=== PATIENT | male | born 1985 | race Caucasian/White ===

== ENCOUNTER → 2016-04-20 | Outpatient (CLI) | payer BC ==
--- NOTE | 2016-04-20 08:18 | CT ---
EXAMINATION TYPE: CT wrist RT wo con DATE OF EXAM: 04/20/2016 7:41 AM COMPARISON: NONE HISTORY: Right wrist pain CT DLP: [address] of the right wrist with reconstruction imaging. TECHNIQUE: Unenhanced CT of the right breast was performed with bone and soft tissue window settings submitted in the axial coronal and sagittal planes. At a separate workstation [id number] TR imaging was obt ained. FINDINGS: There is a partially impacted and partially comminuted fracture of the distal right radius. There is evidence of intra-articular extension. Displacement is estimated at 4 mm. No additional fra ctures are identified. Radiocarpal joint space is well maintained. Soft tissue edema is noted about t he fracture site. IMPRESSION: 1. Distal radial fracture
== END | disposition home or self-care (01) ==
LOC: RADCTMAIN 06:52
PROVIDERS: ATTEND Orthopaedic Surgery
DX: S52.501A Unspecified fracture of the lower end of right radius, initial encounter for closed fracture (principal)

== ENCOUNTER 2016-07-14 14:18 | Inpatient (IN) | payer BC ==
[2016-07-14] MEDS ORDERED: TEMAZEPAM 15 MG CAP PO PRN (14:29)
[2016-07-14] MEDS ORDERED: BENZOCAINE/MENTHOL LOZENG 1 EACH LOZENGE MUCOUS MEM PRN (14:29)
[2016-07-14] MEDS ORDERED: NALOXONE 0.4 MG/ML 1 ML VIAL IV PRN (14:29)
[2016-07-14] MEDS ORDERED: MAG HYDROX/AL HYDROX/SIMETH 30 ML CUP PO PRN (14:29)
[2016-07-14] MEDS ORDERED: NA PHOS,M-B/NA PHOS,DI-BA 133 ML ENEMA RECTAL PRN (14:29)
[2016-07-14] MEDS ORDERED: ACETAMINOPHEN TAB 325 MG TAB PO PRN (14:29)
[2016-07-14] MEDS ORDERED: MAGNESIUM HYDROXIDE 2,400 MG/10 ML CUP PO PRN (14:29)
[2016-07-14] MEDS ORDERED: ONDANSETRON 4 MG/2 ML VIAL IVP PRN (14:29)
[2016-07-14] MEDS ORDERED: IV VANCOMYCIN PER PHARMACY 1 EACH MISC MISCELLANE PRN (14:41)
[2016-07-14] MEDS: HYDROmorphone 1 MG/ML 1 ML SYRINGE IV PRN ×3 (16:19→23:07)
[2016-07-14 16:46] LABS: Basophils # (A) 0.1 k/uL (0-0.2); Basophils % (A) 1 %; CH 28.5; CHCM 31.5; Eosinophils # (A) 0.3 k/uL (0-0.7); Eosinophils % (A) 3 %; HCT 39.9 % (39.0-53.0); HDW 2.94; HGB 12.5 gm/dL (13.0-17.5); Hypochromasia Slight; Luc % (Auto) 4; Lymphocytes # (A) 2.7 k/uL (1.0-4.8); Lymphocytes % (A) 29 %; MCH 28.6 pg (25.0-35.0); MCHC 31.5 g/dL (31.0-37.0); MCV 90.8 fL (80.0-100.0); Mean Platelet Volume 6.4; Monocytes # (A) 0.8 k/uL (0-1.0); Monocytes % (A) 9 %; Neutrophils # (A) 4.8 k/uL (1.3-7.7); Neutrophils % (A) 53 %; RBC 4.39 m/uL (4.30-5.90); RDW 13.1 % (11.5-15.5); WBC (Perox) 9.19
[2016-07-14 16:58] LABS: ALT 67 U/L (21-72); AST 44 U/L (17-59); Alkaline Phosphatase 53 U/L (38-126); Anion Gap 10 mmol/L; Blood Urea Nitrogen 11 mg/dL (9-20); Calcium 9.2 mg/dL (8.4-10.2); Carbon Dioxide 24 mmol/L (22-30); Chloride 107 mmol/L (98-107); Glucose 80 mg/dL (74-99); Non-African American GFR(MDRD) >60 (>60 ml/min/1.73 sqM); Sodium 141 mmol/L (137-145); Total Bilirubin 0.3 mg/dL (0.2-1.3); Total Protein 6.9 g/dL (6.3-8.2)
[2016-07-14] MEDS: LACTATED RINGERS 1,000 ML IV SCH (16:59)
[2016-07-14 17:28] LABS: RBC, Body Fluid 1449000 /uL
[2016-07-14 17:39] LABS: Potassium 4.3 mmol/L (3.5-5.1)
[2016-07-14] MEDS ORDERED: VANCOMYCIN 1,500 MG in SODIUM CHLORIDE 0.9% 250 ML IVPB ONE (18:00)
[2016-07-14] MEDS: HYDROcodone/APAP 5-325MG 1 EACH TAB PO PRN (20:45)
--- NOTE | 2016-07-14 22:34 | P.HPOR ---
History of Present Illness H&P Date: 07/14/16 Chief Complaint: Right wrist infection this is a 30-year-old male with history of right wrist fracture in April 2016. The patient had a closed reduction with percutaneous pinning of the right distal radius on 04/26/16. The patient is on immunosuppressive is for his Crohn's disease. He is currently on Remicade. He has history of MRSA infection. He developed some redness and swelling to the wrist over the past week or so. Symptoms have become progressively worse and presented to our office for evaluation. A bedside I&D was performed in the office as well as an aspiration of the wrist joint. There was no purulent material expressed from either the wound or the joint. Fluid was obtained and sent for culture, sensitivity and cell count. He is admitted to [facility] for IV antibioticsand evaluation with infectious disease. Past Medical History Additional Past Medical History / Comment(s): chrons-diagnosed at age 9, colostomy 2001, psoriasis, atopic dermatitis, cellulitis History of Any Multi-Drug Resistant Organisms: None Reported Past Surgical History: Bowel Resection Additional Past Surgical History / Comment(s): pt states that he has no large intestine Past Anesthesia/Blood Transfusion Reactions: No Reported Reaction Past Psychological History: No Psychological Hx Reported Additional Psychological History / Comment(s): Single. 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 Is not an alcohol user. He over is a tobacco smoker of less than one pack per day. Denies recreational drug use. Does have a girlfriend. No animals in the home. No experience. No extensive travels. Smoking Status: Current every day smoker Past Alcohol Use History: Occasional Past Drug Use History: None Reported - Past Family History Mother Family Medical History: No Reported History Father Family Medical History: Cancer Additional Family Medical History / Comment(s): skin cancer. worked as ship purser and was shot in head but survived Medications and Allergies Home Medications Medication Instructions Recorded Confirmed Type Omeprazole [PriLOSEC] 20 mg PO DAILY 06/09/14 07/14/16 History inFLIXimab [Remicade] 1 injection SQ Q40D 06/09/14 07/14/16 History traMADol HCl [Ultram] 100 mg PO Q8HR PRN 07/21/15 07/14/16 History HYDROcodone/APAP 5-325MG [[place] 1 - 2 tab PO Q6H PRN 07/14/16 07/14/16 History 5-325] Allergies Allergy/AdvReac Type Severity Reaction Status Date / Time No Known Allergies Allergy Verified 07/21/15 09:47 Physical Examination this is a pleasant 30-year-old male in no acute distress. He is alert and oriented 3. Exam of the right upper extremity reveals erythema and swelling to the wrist into the hand. There is a wound about the ulnar aspect of the wristfrom the pin site. There is a clear fluid that is expressed from the wound. There is significant pain with motion of the wrist. He has fairly good finger motion without difficulty or pain. Neurovascular status to the upper extremitiy is intact. Results Right wrist fracture is well-healed.no new findings. - Labs Result Diagrams: 07/14/16 16:22 07/14/16 16:22 Assessment and Plan (1) Cellulitis of wrist Status: Acute (2) Postoperative infection Status: Acute Plan: The clinical findings are discussed the patient. Is recommended that he be admitted for IV antibiotics with his history of immune suppression and history with MRSA in the past.we'll order a K pad for moist heat. His dressing should be changed daily and the wound is repacked. I will consult infectious disease and primary care.
[2016-07-14] MEDS: VANCOMYCIN 1,500 MG in SODIUM CHLORIDE 0.9% 250 ML IVPB SCH (23:10)
[2016-07-15] MEDS: HYDROcodone/APAP 5-325MG 1 EACH TAB PO PRN ×2 (02:09→06:09)
[2016-07-15] MEDS: HYDROmorphone 1 MG/ML 1 ML SYRINGE IV PRN ×3 (02:10→08:44)
[2016-07-15] MEDS: VANCOMYCIN 1,500 MG in SODIUM CHLORIDE 0.9% 250 ML IVPB SCH ×3 (07:43→21:50)
[2016-07-15] MEDS ORDERED: IBUPROFEN 200 MG TAB PO PRN (11:20)
--- NOTE | 2016-07-15 11:26 | P.PN ---
Progress Note - Text Patient is a very pleasant 30-year-old male who is seen and examined at the bedside for further evaluation for right wrist infection. He was seen and examined in the office yesterday with subsequent admission. Fluids were obtained during his visit to the office and sent for evaluation. Packing and dressing was also placed at the posterior right wrist. Since his admittance, he has been started on vancomycin. He states the pain on the posterior aspect of the right wrist has been improving. He states he has been experiencing some increased pain on the palmar side of the wrist. He continues to receive Dilaudid 1 mg IV every 3 hours and [place] 5 mg/25 mg for pain relief. He states his pain has not been adequately controlled. He is currently waiting for evaluation by Dr. Lund in infectious disease as well as medicine. He is known to have Crohn's disease. He states he also has frequent headaches and takes Motrin 200 mg as needed for relief of his headaches. He states this dosage does not cause an exacerbation of his Crohn's disease. He continues to take Remicade for his Crohn's disease. Physical Exam: Patient is awake, alert, and oriented 3 Vital signs stable Good chest excursion with deep inspiration and expiration Abdomen soft nontender Erythema and swelling to the right wrist and hand Evidence of a wound on the ulnar aspect of the wrist from the pin site Wound is currently packed with iodoform gauze with mild drainage Dressing about the right wrist is removed during physical examination; dressing reapplied with Adaptic, nonstick Telfa, and stretch wrap Pain with palpation of the palmar side of the wrist Significant pain throughout range of motion of the right wrist Good range of motion of all fingers and thumb of the right hand without significant difficulty Neurovascularly intact right upper extremity Pertinent studies: Gram stain and wound culture of the right wrist preliminary: Few gram-positive cocci in clusters, moderate polymorphonuclear leukocytes Anaerobic wound culture preliminary: Culture and progress Assessment: Right wrist infection following closed reduction with percutaneous pinning of the right distal radius on 04/26/2016 Crohn's disease with subsequent previous bowel resection Headaches Current every day smoker Plan: 1. We will plan to obtain an MRI of the right wrist with and without contrast for further evaluation following his right wrist infection and significant right wrist pain. 2. Continue with daily dressing changes with Adaptic, nonstick Telfa, and stretch wrap; physician to RN communication has been placed 3. Continue pain control; will plan to discontinue [place] 5 mg/325 mg 2 tabs every 6 hours as needed for pain and we'll increase this to [place] 7.5 mg/325 mg 2 tabs every 6 hours as needed for pain; continue with Dilaudid 1 mg IV every 3 hours as needed for pain 4. We will add Motrin 200 mg one tab daily as needed for headaches 5. Patient currently waiting for consultation by Dr. Lund in infectious disease 6. Patient will be seen and examined by medicine for further evaluation 7. We'll continue to follow patient closely
[2016-07-15] MEDS: HYDROcodone/APAP 7.5-325MG 1 EACH TAB PO PRN ×3 (11:54→20:32)
[2016-07-15] MEDS: HYDROmorphone 1 MG/ML 1 ML SYRINGE IVP PRN ×4 (12:52→23:33)
[2016-07-15] MEDS ORDERED: IV VANCOMYCIN PER PHARMACY 1 EACH MISC MISCELLANE PRN (12:58)
[2016-07-15] MEDS: LACTATED RINGERS 1,000 ML IV SCH (14:40)
[2016-07-15] MEDS ORDERED: VANCOMYCIN TROUGH DUE 1 EACH MISC MISCELLANE ONE ×2 (15:30→21:00)
--- NOTE | 2016-07-15 15:30 | P.CONS ---
History of Present Illness - Reason for Consult Consult date: 07/15/16 Medical management Requesting physician: Abilio Julien - Chief Complaint Right wrist pain - History of Present Illness 30-year-old gentleman with history of right-wrist fracture in April status post close reduction with percutaneous pinning who presented to his orthopedic surgeon's office yesterday with worsening right wrist swelling and pain. Patient was noted to have significant cellulitis with possible abscess formation. He underwent I&D. He was directly admitted to the hospital for IV antibiotic treatment given his underlying Crohn's disease in him being immunocompromised on Remicade. I was asked to see him for medical management. Patient is doing well today. Review of Systems Review of system: 14 points review of systems were obtained and were negative except to what were mentioned in the HPI. Past Medical History Additional Past Medical History / Comment(s): chrons-diagnosed at age 9, colostomy 2001, psoriasis, atopic dermatitis, cellulitis History of Any Multi-Drug Resistant Organisms: None Reported Year Discovered:: 2006(PER PT HAD IT AROUND 10 YEARS AGO) MDRO Source:: SKIN ABCESS Past Surgical History: Bowel Resection Additional Past Surgical History / Comment(s): pt states that he has no large intestine Past Anesthesia/Blood Transfusion Reactions: No Reported Reaction Additional Past Anesthesia/Blood Transfusion Reaction / Comm: HAS RECIEVED PLATLETS IN PAST. 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 Is not an alcohol user. He over is a tobacco smoker of less than one pack per day. Denies recreational drug use. Does have a girlfriend. No animals in the home. No experience. No extensive travels. Smoking Status: Current every day smoker Past Alcohol Use History: Occasional Additional Past Alcohol Use History / Comment(s): started smoking at age 19, smokes 1/2 ppd. occ alcohol. Past Drug Use History: None Reported - Past Family History Father Family Medical History: Cancer Additional Family Medical History / Comment(s): skin cancer. worked as manager practice and was shot in head but survived Mother Family Medical History: No Reported History Additional Family Medical History / Comment(s): skin cancer Medications and Allergies Home Medications Medication Instructions Recorded Confirmed Type Omeprazole [PriLOSEC] 20 mg PO DAILY 06/09/14 07/14/16 History inFLIXimab [Remicade] 1 injection SQ Q40D 06/09/14 07/14/16 History traMADol HCl [Ultram] 100 mg PO Q8HR PRN 07/21/15 07/14/16 History HYDROcodone/APAP 5-325MG [[place] 1 - 2 tab PO Q6H PRN 07/14/16 07/14/16 History 5-325] Allergies Allergy/AdvReac Type Severity Reaction Status Date / Time No Known Allergies Allergy Verified 07/21/15 09:47 Physical Exam Vitals: Vital Signs Temp Pulse Resp BP Pulse Ox 07/15/16 08:00 76 16 07/15/16 07:00 98.4 F 76 16 108/64 96 07/14/16 23:00 96.0 F L 72 16 136/82 99 07/14/16 17:09 16 07/14/16 16:44 97.6 F 78 16 130/83 97 Intake and Output 07/15/16 07/15/16 07/15/16 06:59 14:59 22:59 Intake Total 750 500 Balance 750 500 Intake: IV 160 140 Lactated Ringers 1,000 ml 160 140 @ 20 mls/hr IV .Q24H [facility] Rx#:[id number] Oral 590 360 Other: Voiding Method Toilet Toilet # Voids 2 3 General: The patient is awake and alert, in no distress Eye: there is normal conjunctiva bilaterally. Neck: The neck is supple, there is no JVD. Cardiovascular: Normal S1-S2, no S3-S4, no murmurs. Respiratory: Lungs clear to auscultation bilaterally Gastrointestinal: Abdomen is soft, nontender Musculoskeletal: There is no pedal edema. Neurological:. Speech is normal. Skin: Skin is warm and dry Results CBC & Chem 7: 07/14/16 16:22 07/14/16 16:22 Labs: Abnormal Lab Results - Last 24 Hours (Table) 07/14/16 07/14/16 Range/Units 16:22 16:22 Hgb 12.5 L (13.0-17.5) gm/dL Creatinine 0.60 L (0.66-1.25) mg/dL Microbiology - Last 24 Hours (Table) 07/14/16 16:00 Gram Stain - Preliminary Wrist - Right Wound Culture - Preliminary 07/14/16 16:00 Anaerobic Culture - Preliminary Wrist - Right Assessment and Plan Plan: 1. Right face cellulitis with early abscess formation status post I&D by orthopedics. MRI ordered. Patient on broad-spectrum antibiotic. History of MRSA. Infectious disease consulted. 2. Underlying Crohn's disease on Remicade as an outpatient 3. GERD Today, I reviewed her medication list and lab work results. Continue current regimen. Thank you very much for the consultation. I will continue to follow up on the patient closely.
--- NOTE | 2016-07-15 15:34 | MR ---
MR right wrist with and without contrast HISTORY: Infection and pain Correlation to CT right wrist 20 April 2016 Multiplanar multisequence imaging obtained through the right wrist. Patient received 20 cc MultiHance IV Intermediate signal on T1, increased signal on T2-weighted sequences within the metaphysis of the dis ravi right radius, previous fractures noted as described on prior report. There is enhancement at the distal radius, suggestion of a channel extending from the metaphysis centrally towards the dorsal asp ect soft tissues with heterogeneous signal within the subcutaneous fat which may represent a fistula formation. Subcutaneous edema changes are present extensively. Increased signal within the musculatur e compatible with myositis. IMPRESSION: Findings compatible with osteomyelitis related to patient's fracture and suggestive of fi stula formation as described.
--- NOTE | 2016-07-15 15:42 | CONS ---
DATE OF CONSULTATION: DATE OF SERVICE: 07/15/2016 REASON FOR CONSULTATION: Right wrist infection. HISTORY OF PRESENT ILLNESS: I came to the patient for evaluation of right wrist infection around 1 p.m. This consult was called last night around about 6:30. However, the patient has gone to the MRI and per the MRI, he will be there in machine for another hour and a half. Patient at this time will be continued on the vancomycin and be evaluated tomorrow.
[2016-07-15] MEDS: HEPARIN SODIUM,PORCINE 5,000 UNIT/ML 1 ML VIAL SQ SCH (21:59)
[2016-07-16] MEDS: HYDROmorphone 1 MG/ML 1 ML SYRINGE IVP PRN ×7 (02:19→23:25)
[2016-07-16] MEDS: HYDROcodone/APAP 7.5-325MG 1 EACH TAB PO PRN ×2 (03:27→09:38)
[2016-07-16] MEDS: VANCOMYCIN 1,500 MG in SODIUM CHLORIDE 0.9% 250 ML IVPB SCH ×3 (05:30→22:09)
[2016-07-16] MEDS: HEPARIN SODIUM,PORCINE 5,000 UNIT/ML 1 ML VIAL SQ SCH ×3 (08:42→19:35)
--- NOTE | 2016-07-16 11:20 | P.PN ---
Progress Note - Text Patient is a very pleasant 30-year-old male who is seen and examined at the bedside for further evaluation for right wrist infection. He was seen and examined in the office 07/14/2016, with subsequent admission. Fluids were obtained during his visit to the office and sent for evaluation. Packing and dressing was also placed at the posterior right wrist. Since his admittance , he has been started on vancomycin. He was attempted to be seen and examined by Dr. Lund in infectious disease yesterday but the patient was having an MRI of the right wrist at that time and was unable to be seen. He continues to take vancomycin. Per Dr. Lund's note, he plans to evaluate the patient further today with subsequent recommendations. Patient states this morning he continues to have significant pain on the palmar side of the wrist and states he is experiencing significant pain in the posterior aspect of the wrist at the wound site. He is somewhat frustrated as he states he does not feel any better today as compared to the time of admittance. He continues to have some difficulty with pain control. He continues to receive Dilaudid 1 mg IV every 3 hours and [place] 7.5 mg/325 mg 2 tabs every 6 hours. Yesterday he was seen and examined by Dr. Morgan in medicine for medical management as well. An MRI of the right wrist with and without contrast has been performed in these results are available. He is known to have Crohn's disease. He states he also has frequent headaches and takes Motrin 200 mg as needed for relief of his headaches. He states this dosage does not cause an exacerbation of his Crohn's disease. He states he did not take Motrin yesterday. He continues to take Remicade for his Crohn's disease. Patient also states he is comfortable with having the iodoform gauze removed from the incision site but does not want any packing placed back in the wound site. Physical Exam: Patient is awake, alert, and oriented 3 Vital signs stable Good chest excursion with deep inspiration and expiration Abdomen soft nontender Erythema and swelling to the right wrist and hand Evidence of a wound on the ulnar aspect of the wrist from the pin site Wound is currently packed with iodoform gauze with mild drainage; iodoform gauze removed during physical examination Dressing about the right wrist is removed during physical examination; dressing reapplied with Adaptic, nonstick Telfa, and stretch wrap Pain with palpation of the palmar side of the wrist as well as around the posterior wound site Significant pain throughout range of motion of the right wrist Good range of motion of all fingers and thumb of the right hand without significant difficulty Neurovascularly intact right upper extremity Pertinent studies: Gram stain and wound culture of the right wrist preliminary: Few gram-positive cocci in clusters, moderate polymorphonuclear leukocytes Anaerobic wound culture preliminary: Culture and progress MRI of the right wrist with an without contrast: Findings compatible with osteomyelitis related to the patient's distal radius fracture and suggested fistula formation; subcutaneous edema changes present extensively; increased signal within the musculature compatible with myositis Assessment: Right wrist infection following closed reduction with percutaneous pinning of the right distal radius on 04/26/2016 Osteomyelitis related to the patient's distal radius fracture and suggested fistula formation Crohn's disease with subsequent previous bowel resection Headaches Current every day smoker Plan: 1. Following the MRI of the right wrist with and without contrast, I will plan to contact Dr. Julien and Estrella Lynn PA-C to discuss these results. Following their further evaluation of the MRI and assessment of the patient, they will determine a further plan of care in regards to whether he will need further surgical intervention or continue with conservative treatment. At this time we' ll plan to continue with vancomycin with pharmacy to dose until he is seen and examined by Dr. Lund infectious disease. If Dr. Lund would like to adjust his medications accordingly we feel that is an appropriate plan of care. 2. Continue with daily dressing changes with Adaptic, nonstick Telfa, and stretch wrap; physician to RN communication has been placed 3. Continue pain control; will plan to discontinue [place] 7.5 mg/325 mg 2 tabs every 6 hours as needed for pain and we'll increase this to [place] 10mg/325 mg 1 tabs every 4 hours as needed for pain; continue with Dilaudid 1 mg IV every 3 hours as needed for pain 4. We will continue with Motrin 200 mg one tab daily as needed for headaches 5. Patient currently waiting for consultation by Dr. Lund in infectious disease 6. Patient will continue to be seen and examined by Dr. Morgan in medicine for further evaluation 7. We'll continue to follow patient closely
--- NOTE | 2016-07-16 13:00 | P.PN ---
Subjective Patient is doing fairly well today. He said that his pain is relatively well- controlled. No issues overnight. Objective - Vital Signs Vital signs: Vital Signs Temp 98.0 F 07/16/16 07:00 Pulse 62 07/16/16 08:00 Resp 18 07/16/16 08:00 BP 119/67 07/16/16 07:00 Pulse Ox 96 07/16/16 07:00 Intake & Output 07/15/16 07/16/16 07/16/16 18:59 06:59 18:59 Intake Total 500 1780 Balance 500 1780 Weight 86.806 kg 86.806 kg Intake: IV 140 200 Lactated Ringers 1,000 ml 140 200 @ 20 mls/hr IV .Q24H [facility] Rx#:[id number] Intake, IV Titration 500 Amount Vancomycin 1,500 mg In 500 Sodium Chloride 0.9% 250 ml @ 125 mls/hr IVPB Q8H [facility] Rx#:[id number] Oral 360 1080 Other: Voiding Method Toilet Toilet Toilet # Voids 3 1 1 - Exam General: The patient is awake and alert, in no distress Eye: there is normal conjunctiva bilaterally. Neck: The neck is supple, there is no JVD. Cardiovascular: Normal S1-S2, no S3-S4, no murmurs. Respiratory: Lungs clear to auscultation bilaterally Gastrointestinal: Abdomen is soft, nontender Musculoskeletal: There is no pedal edema. Neurological:. Speech is normal. Skin: Skin is warm and dry - Labs CBC & Chem 7: 07/14/16 16:22 07/14/16 16:22 Assessment and Plan Plan: 1. Right wrist cellulitis with early abscess formation status post I&D by orthopedics. Patient on broad-spectrum antibiotic. History of MRSA. Infectious disease consulted. 2. Acute osteomyelitis of the distal right radius: Awaiting infectious disease recommendation. I suggest 6 weeks of IV antibiotics via PICC line. Awaiting cultures to finalize. 3. Underlying Crohn's disease on Remicade as an outpatient 4. GERD: On Prilosec daily Today, I reviewed her medication list and lab work results. Continue current regimen. Thank you very much for the consultation. I will continue to follow up on the patient closely.
[2016-07-16] MEDS: PANTOPRAZOLE 40 MG TABLET PO SCH (13:46)
[2016-07-16] MEDS: HYDROcodone/APAP 10-325MG 1 EACH TAB PO PRN ×3 (13:50→22:10)
[2016-07-16] MEDS: LACTATED RINGERS 1,000 ML IV SCH (14:17)
--- NOTE | 2016-07-16 20:35 | CONS ---
DATE OF CONSULTATION: 07/16/2016 REASON FOR CONSULTATION: Right wrist infection. HISTORY OF PRESENT ILLNESS: The patient is a 30 -year-old male with a past medical history significant for Crohn's disease for which the patient is on Remicade. The patient did fracture his right wrist on April of 2016. Patient at that time did have closed reduction with percutaneous pinning of the right distal fracture on April 26, [address] Julien. Patient did have a follow-up with Dr. Julien in May with those pins were removed. Patient said that two weeks later on, the patient noticed having swelling and redness of his wrist area that had become more painful. Pain described as throbbing almost 7 to 8 out of 10 and no significant radiation. area becomes opened up and drained for which the patient was evaluated by Dr. Julien in the office on Sunday. The patient did have fluid aspirated from the wrist joint and apparently there was no evidence of any purulence from the wound. The patient subsequently was admitted to the hospital on Sunday. The patient was started on vancomycin, pharmacy to dose. Consult was placed with Dr. Butterfield and later on in the evening was switched to me in view of his unavailability of being on vacation. I did come to see the patient in the afternoon yesterday. However, patient went down to the MRI and on talking to the technical program manager he be in the in the machine for almost an hour. The wound unfortunately no blood culture was done. Wound cultures showing gram-positive cocci in clusters. The patient did have previously history of methicillin susceptible Staphylococcus aureus infection from the neck area back in September of 2014 and May 2015. MRI of the wrist has been completed and finalized with findings compatible with osteomyelitis patient fracture suggestive of fistula formation. Ortho is on the case. Patient has been on Vanco with a draw being therapeutic at 18.2. No fever has been noticed. The patient is complaining of significant pain in the area. REVIEW OF SYSTEMS: CONSTITUTIONAL: Positive for weakness. No high-grade fever. EYES: No complaint. ENT: No complaint. RESPIRATORY: No complaint. CARDIOVASCULAR: No complaint. GENITOURINARY: No complaint. GASTROINTESTINAL: No complaint. MUSCULOSKELETAL: As per HPI. INTEGUMENTARY: As per HPI. PSYCHOLOGIC: No complaint. ENDOCRINE: No complaint. NEUROLOGIC: No complaint. Past medical history significant for Crohn's disease. Previous history of MRSA skin and soft tissue infection. Past surgical history of bowel resection, Colostomy. SOCIAL HISTORY: A current every day smoker and occasionally drinks. Denies drug use. FAMILY HISTORY: Mother and father with history of skin cancer. Allergies: No known drug allergies. Medications currently include patient is on: 1. Tylenol. 2. [place]. 3. Maalox. 4. Cepacol lozenges. 5. Heparin. 6. Dilaudid. 7. Ibuprofen. 8. Narcan. 9. Zofran. 10. Protonix. 11. Vancomycin 1500 q. 8. On examination, the blood pressure is 119/60 with a pulse of 77, temperature 98. He is 96% on room air. GENERAL: General description is a middle-age male lying in bed in no distress. No tachypnea or accessory muscle of respiration use. HEENT examination shows no pallor or scleral icterus. Oral mucosa membranes dry. NECK: Trachea central. There is no thyromegaly. LUNGS: Unlabored breathing. Clear to auscultation anteriorly. No wheeze or crackle. HEART: S1, S2. Regular rate and rhythm. ABDOMEN: Soft, no tenderness. No guarding or rigidity. EXTREMITIES: No edema of feet. SKIN EXAMINATION: Right wrist swollen and slight red with the wound on the dorsal aspect with very minimal purulent slough tissue and some surrounding erythema. No significant redness. Only foul smelling drainage. NEUROLOGICAL: The patient is awake, alert, oriented x3. Mood and affect normal. LABS: Hemoglobin is 12.5, white count 9.0 with a BUN of 11, creatinine 0.30, electrolytes have been normal. Liver enzymes are normal. Wound cultures with Gram-positive cocci in clusters. DIAGNOSTIC IMPRESSION AND PLAN: Patient with right hand/wrist infection with likely secondary osteomyelitis and likely secondary Gram-positive skin claudia. Previous history of methicillin susceptible Staphylococcus aureus infection with the wound culture now showing Gram-positive cocci and cluster more likely Staph aureus with waiting for the sensitivity to determine if the same MSSA or an MRSA infection, unfortunately no blood cultures were done and the patient already received antibiotics. MRI has been suspicion for fistula formation. PLAN: 1. Blood cultures times two stat. 2. Vancomycin and continued pharmacy to reach target of 15 while waiting for the culture to finalize. Discharge antibiotic will depend on final ID of this pathogen. 3. We will discuss with the orthopedics for further surgical debridement of this area and resection of that fistula in order to completely cover this infection. 4. We will follow up on the clinical condition and cultures to further adjust the medication needs. Thank you for this consultation. We will follow this patient along with you. ROSALVA
[2016-07-17] MEDS: HYDROmorphone 1 MG/ML 1 ML SYRINGE IVP PRN ×5 (02:13→17:09)
[2016-07-17] MEDS: HYDROcodone/APAP 10-325MG 1 EACH TAB PO PRN ×5 (02:13→22:44)
[2016-07-17] MEDS: VANCOMYCIN 1,500 MG in SODIUM CHLORIDE 0.9% 250 ML IVPB SCH (05:54)
[2016-07-17] MEDS: PANTOPRAZOLE 40 MG TABLET PO SCH (08:08)
[2016-07-17] MEDS: HEPARIN SODIUM,PORCINE 5,000 UNIT/ML 1 ML VIAL SQ SCH ×2 (08:08→23:31)
--- NOTE | 2016-07-17 09:42 | P.PN ---
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 He had worsening swelling and redness of the left wrist and has been admitted to the hospital for IV antibiotics. MRI of the wrist compatible with osteomyelitis related to patient's fracture and suggestive of fistula formation. Patient is followed by infectious disease as well as orthopedics. Patient reports that his pain is better controlled. Has had decrease in swelling and redness of the wrist. Denies any chest pain or shortness of breath. Denies any nausea or vomiting. Denies any bowel movement changes or urinary symptoms. Objective - Vital Signs Vital signs: Vital Signs Temp 97.9 F 07/17/16 07:00 Pulse 60 07/17/16 07:00 Resp 16 07/17/16 08:00 BP 112/68 07/17/16 07:00 Pulse Ox 96 07/17/16 07:00 Intake & Output 07/16/16 07/17/16 07/17/16 18:59 06:59 18:59 Intake Total 1121 1540 Balance 1121 1540 Weight 86.806 kg Intake: IV 321 Lactated Ringers 1,000 ml 321 @ 20 mls/hr IV .Q24H [facility] Rx#:[id number] Intake, IV Titration 250 Amount Vancomycin 1,500 mg In 250 Sodium Chloride 0.9% 250 ml @ 125 mls/hr IVPB Q8H [facility] Rx#:[id number] Oral 550 1540 Other: Voiding Method Toilet Toilet Toilet # Voids 4 2 # Bowel Movements 3 - Exam Head normocephalic Neck supple Lungs clear to auscultation bilaterally no wheezing or crackles Heart regular rate and rhythm S1-S2, no rub or gallop Abdomen is soft nontender nondistended positive bowel sounds no hepatosplenomegaly Extremities no edema bilateral lower extremities. Right wrist +2 radial pulse. Open wound on posterior aspect of right wrist with puslike drainage. Decrease in swelling and redness. Neuro alert and orientated to 3 - Labs CBC & Chem 7: 07/14/16 16:22 07/14/16 16:22 Labs: Abnormal Lab Results - Last 24 Hours (Table) 07/16/16 Range/Units 17:21 ESR 21 H (0-15) mm/hr Microbiology - Last 24 Hours (Table) 07/14/16 16:00 Anaerobic Culture - Preliminary Wrist - Right 07/14/16 16:00 Gram Stain - Final Wrist - Right Wound Culture - Final Staphylococcus aureus Assessment and Plan Plan: 1. 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 Currently on IV vancomycin due to his history of MRSA. We'll await further antibiotic recommendations per infectious disease. Awaiting further orthopedic recommendations for possible surgical intervention. Patient did have a bedside I&D in the office prior to admission 2. History of underlying Crohn's disease on Remicade as outpatient 3. GERD continue Protonix 4. Nicotine dependence: Discussed smoking cessation. Patient refuses nicotine patch at this time GI prophylaxis Protonix and DVT prophylaxis subcu heparin
--- NOTE | 2016-07-17 11:17 | P.PN ---
Progress Note - Text I have seen and examined Jun today in his hospital bed. He is still having quite a bit of pain although he feels that it is improved since Sunday. He is still having drainage. I have reviewed the MRI films and report of his study of the right wrist. The films show an obvious abscess in the distal radius on the ulnar side of the bone along with some surrounding osteomyelitis. There also appears to be a fistula to the skin surface accounting for his current drainage problems. The joint itself does not appear to be infected. I have spoken with Jun at length today about this situation and recommended that we proceed with operative debridement of the fistula as well as the bone at 4: 30 PM today. I described the steps of the operation including making a window into the bone for enhanced drainage out of the bone of the infection as well as packing of the wound and leaving it open. I discussed the potential risks and complications of this operation as being inclusive of, but not limited to: Bleeding, infection, scarring, discomfort, blood vessel and/or nerve damage, postinfectious arthrosis, loss of limb or life, stiffness and weakness of the wrist, tendon damage, and persistence or worsening of problems. It is likely that he will need daily dressing changes and possibly another debridement in the future depending on findings today. He will also of course need IV antibiotics with a PICC line. We will try to coordinate the PICC line at the same time that we do the operation and I have told him to expect a few more days in the hospital. Dr. Lund is providing care from the infectious disease perspective. He wishes to proceed with the plan as outlined but does wish to follow-up with Dr. Butterfield as an outpatient.
--- NOTE | 2016-07-17 11:19 | P.PN ---
Subjective Principal diagnosis: Status post percutaneous pinning of the right wrist This is a 30-year-old male who is status post percutaneous pinning of the right wrist in April. Patient was complaining of increased tenderness to the right wrist and was admitted for cellulitis and pin tract infection on Sunday, 2016. Patient has Crohn's disease and has been on recent immunosuppressants and steroids. Patient was diagnosed with osteomyelitis via MRI on 07/15/2016. Objective - Vital Signs Vital signs: Vital Signs Temp 97.9 F 07/17/16 07:00 Pulse 60 07/17/16 07:00 Resp 16 07/17/16 08:00 BP 112/68 07/17/16 07:00 Pulse Ox 96 07/17/16 07:00 Intake & Output 07/16/16 07/17/16 07/17/16 18:59 06:59 18:59 Intake Total 1121 1540 Balance 1121 1540 Weight 86.806 kg Intake: IV 321 Lactated Ringers 1,000 ml 321 @ 20 mls/hr IV .Q24H [facility] Rx#:[id number] Intake, IV Titration 250 Amount Vancomycin 1,500 mg In 250 Sodium Chloride 0.9% 250 ml @ 125 mls/hr IVPB Q8H [facility] Rx#:[id number] Oral 550 1540 Other: Voiding Method Toilet Toilet Toilet # Voids 4 2 # Bowel Movements 3 - Exam Patient's right wrist is wrapped with a dressing. Dressing was left in place. Patient has limited range of motion of the right wrist but patient's fingers move freely. Neurovascular status is intact. - Labs CBC & Chem 7: 07/14/16 16:22 07/14/16 16:22 Labs: Abnormal Lab Results - Last 24 Hours (Table) 07/16/16 Range/Units 17:21 ESR 21 H (0-15) mm/hr Microbiology - Last 24 Hours (Table) 07/14/16 16:00 Anaerobic Culture - Preliminary Wrist - Right 07/14/16 16:00 Gram Stain - Final Wrist - Right Wound Culture - Final Staphylococcus aureus Assessment and Plan (1) Osteomyelitis of right wrist Status: Acute Plan: #1. Incision and drainage procedure today at 1630. #2. Appreciate input from infectious disease. #3. Possible admission to wound care center today and PICC line.
[2016-07-17 11:25] LABS: Aty Lym Flag Slight; CH 29.2; CHCM 33.3; HCT 39.9 % (39.0-53.0); HDW 3.05; HGB 13.2 gm/dL (13.0-17.5); MCH 29.1 pg (25.0-35.0); MCHC 33.1 g/dL (31.0-37.0); MCV 87.8 fL (80.0-100.0); Mean Platelet Volume 6.2; RBC 4.55 m/uL (4.30-5.90); RDW 12.4 % (11.5-15.5); WBC 7.3 k/uL (3.8-10.6); WBC (Perox) 7.52
[2016-07-17 12:28] LABS: Add Differential Manual Differential
[2016-07-17 12:38] LABS: Nucleated Red Blood Cells 0 /100 WBC (0-0); Total Cells Counted 100
[2016-07-17] MEDS ORDERED: LIDOCAINE 2% INJ 20 MG/ML SQ ONE (13:14)
--- NOTE | 2016-07-17 14:29 | IR ---
EXAMINATION TYPE: IR cvc insert >=5 years DATE OF EXAM: 07/17/2016 1:31 PM COMPARISON: NONE CLINICAL HISTORY: osteomyelitis Needs long-term intravenous access for antibiotics. PROCEDURE: After informed consent, the skin overlying the upper extremity vein was localized with ultrasound and noted to be compressible and patent. An ultrasound image was obtained and submitted on the patient' s chart. The overlying skin was prepped and draped and Lidocaine was used for local anesthesia. A s kin shazia was made with a scalpel. Access was gained to the vein under ultrasound guidance with a 21 gauge needle and a 0.018 inch wire was advanced. Access site was dilated with Peel-Away sheath and c atheter tailored to the appropriate length and advanced such that the distal tip is at the cavoatrial junction. Spot image was obtained verifying placement. Catheter was fixed to the skin with suture and a sterile dressing was placed following hemostasis. Catheter was aspirated and flushed with sali ne. Patient was discharged in stable condition without complication. Maximal barrier technique is ut ilized. Ultrasound image is documented on the chart. Ultrasound used with sterile technique. Fluoro time and fluoroscopic images submitted to document procedure: single intraoperative image misha nagy procedure, 0.3 mins. fluoro time IMPRESSION: STATUS POST ULTRASOUND AND FLUOROSCOPIC GUIDED PICC LINE PLACEMENT, READY FOR USE. THIS PROCEDURE WAS PERFORMED BY THE UNDERSIGNED.
[2016-07-17] MEDS ORDERED: fentaNYL (PF) 50 MCG/ML 2 ML AMP ONE (19:34)
[2016-07-17] MEDS ORDERED: LIDOCAINE 1% INJ 10MG/ML (20 ML MDV) ONE (19:34)
[2016-07-17] MEDS ORDERED: MIDAZOLAM 2 MG/2 ML VIAL ONE (19:34)
[2016-07-17] MEDS ORDERED: LACTATED RINGERS 1,000 ML IV ONE ×2 (19:34→19:43)
[2016-07-17] MEDS ORDERED: PROPOFOL 10 MG/ML 20 ML VIAL IV ONE (19:34)
[2016-07-17] MEDS ORDERED: ONDANSETRON 4 MG/2 ML VIAL ONE (19:34)
[2016-07-17] MEDS: ceFAZolin 2 GM in SODIUM CHLORIDE 0.9% 100 ML IVPB SCH (19:34)
[2016-07-17] MEDS ORDERED: ceFAZolin 3,000 MG in SODIUM CHLORIDE 0.9% IRRIGATIO 3,000 ML IRRIGATION ONE (19:35)
[2016-07-17] MEDS: HYDROmorphone 1 MG/ML 1 ML SYRINGE IVP ONE ×5 (20:22→20:57)
--- NOTE | 2016-07-17 20:58 | P.OP ---
Date of Procedure: 07/17/16 Procedure(s) Performed: PREOPERATIVE DIAGNOSES: 1. Right wrist acute osteomyelitis involving distal radius with fistula 2. History of right wrist distal radius fracture treated with closed reduction and percutaneous pinning 3. History of Crohn's disease from young age treated with Remicade and history of multiple infections POSTOPERATIVE DIAGNOSES: 1. Right wrist acute osteomyelitis involving distal radius with fistula 2. History of right wrist distal radius fracture treated with closed reduction and percutaneous pinning 3. History of Crohn's disease from young age treated with Remicade and history of multiple infections PROCEDURES PERFORMED: 1. Right wrist distal radius incision, irrigation, and sharp excisional debridement using a knife (fistula tissue, abscess within bone, suspicious bony material, devitalized soft tissue of the wrist) 2. Moist packing of wound using quarter-inch iodoform gauze ANESTHESIA: oven press tender: None COMPLICATIONS: None ESTIMATED BLOOD LOSS: Less than 10 mL. DISPOSITION: To post-anesthesia care unit INDICATIONS: Jun is a 30-year-old male with a history of distal radius osteomyelitis. He has had Crohn's disease at an early age for which he has been taking Remicade which has been effective in treating his Crohn's however has made him immunosuppressed. He has had multiple infections in the past requiring multiple central line placements due to his immune compromised status. He recently underwent closed reduction and percutaneous pinning of his right distal radius because of a comminuted fracture, which he successfully healed and was doing well for the past month or so. Before his current problems , he changed the wax seal on a toilet and noted that he had full use and full function of his wrist without pain up until July 11, when he and his fianc noted that his wrist was swollen and becoming more painful. This became worse and on Sunday the he had pus drainage from the dorsal aspect of his wrist. At that time, I performed an office I&D and obtained a culture, and admitted him to the hospital so that he could receive IV antibiotics and further monitoring. He improved somewhat over the weekend but an MRI showed acute osteomyelitis involving the distal radius with a fistula to the skin surface on the dorsal aspect. Today he was still having pain and swelling and I felt it best to perform a formal irrigation and debridement procedure to address the osteomyelitis. Please see my preoperative note for further details. He has signed a consent form. PROCEDURE: After appropriate consent was obtained, the patient was taken to the operating room placed in the supine position. Anesthesia was initiated, and after confirmation of adequate anesthesia, the patient was carefully positioned. Care was taken to make sure that all pressure points were adequately padded. Prepping and draping were completed in the usual aseptic fashion using iodine prep. Timeout was called, confirming patient identity, side, procedure, and administration of antibiotics. The previous wound on the dorsal aspect of his wrist just adjacent to the dorsal distal radioulnar joint was expanded into a 3.5 cm incision. Incision was carried down through skin and into subcutaneous tissues down to extensor retinaculum. Note was made of the fistula which tracked down to the distal radius centrally beneath the fourth dorsal extensor compartment. Suspicious devitalized tissue during the approach to the distal radius was identified and removed sharply using a knife. This included subcutaneous tissue, some fascia, and periosteum. The interval between the fourth and fifth dorsal extensor compartments was incised with careful preservation of the dorsal radial ulnar ligaments. The fourth dorsal compartment was peeled off the dorsal surface of the distal radius so that the fistula and abscess cavity into the distal radius was able to be fully exposed. The fistula was removed sharply using a knife and further debrided using a rongeur. The rongeur was also used to remove suspicious-appearing bone around the abscess entrance into the distal radius. The abscess cavity within the distal radius was cultured, and then thoroughly debrided using curettes. Pulsatile lavage was then performed with approximately 3 L of normal saline. The wound was then inspected and found to have a greatly improved appearance after this debridement. Gentle packing using moistened quarter-inch iodoform gauze was performed into the abscess cavity into the bone and gently around the soft tissues. Wet-to-dry dressing was applied and a resting volar splint with the wrist in neutral was applied. Patient tolerated the procedure well and taken to recovery room in stable condition. Sponge counts were correct.
[2016-07-17] MEDS ORDERED: LIDOCAINE 2%-EPI 1:100,000 20 ML VIAL INTRAARTIC ONE (21:10)
[2016-07-17] MEDS ORDERED: ROPIVACAINE 5 MG/ML 30 ML VIAL MISCELLANE ONE (21:10)
[2016-07-17] MEDS ORDERED: HYDROmorphone 1 MG/ML 1 ML SYRINGE IVP PRN (21:20)
[2016-07-17] MEDS: LACTATED RINGERS 1,000 ML IV SCH (23:32)
[2016-07-18] MEDS: HYDROmorphone 1 MG/ML 1 ML SYRINGE IVP PRN ×6 (00:06→22:45)
[2016-07-18] MEDS: ceFAZolin 2 GM in SODIUM CHLORIDE 0.9% 100 ML IVPB SCH ×3 (00:07→18:18)
[2016-07-18] MEDS: LACTATED RINGERS 1,000 ML IV SCH ×3 (00:11→09:44)
[2016-07-18] MEDS: HYDROcodone/APAP 10-325MG 1 EACH TAB PO PRN ×2 (03:07→08:05)
[2016-07-18 06:27] LABS: Basophils # (A) 0.1 k/uL (0-0.2); Basophils % (A) 1 %; CH 28.8; CHCM 32.7; Eosinophils # (A) 0.2 k/uL (0-0.7); Eosinophils % (A) 2 %; HCT 38.9 % (39.0-53.0); HDW 2.81; HGB 12.6 gm/dL (13.0-17.5); Luc # (Auto) 0.36; Luc % (Auto) 3; Lymphocytes # (A) 3.2 k/uL (1.0-4.8); Lymphocytes % (A) 29 %; MCH 28.7 pg (25.0-35.0); MCHC 32.5 g/dL (31.0-37.0); MCV 88.3 fL (80.0-100.0); Mean Platelet Volume 6.5; Monocytes # (A) 0.8 k/uL (0-1.0); Monocytes % (A) 7 %; Neutrophils # (A) 6.4 k/uL (1.3-7.7); Neutrophils % (A) 58 %; WBC 11.1 k/uL (3.8-10.6)
--- NOTE | 2016-07-18 07:32 | PN ---
DATE OF SERVICE: 07/17/2016 Reason for followup is right wrist osteomyelitis. INTERVAL HISTORY: The patient is afebrile. The patient is status post right wrist distal incision, irrigation, sharp excisional debridement of the abscess within bone in a patient who did have evidence of osteomyelitis on the basis of the MRI. The patient requested a PICC line be placed while he is out, which has been completed without any complication. The patient was evaluated with surgery and was doing well. Denies any significant chest pain or shortness of breath or cough. No abdominal pain or any diarrhea. On examination, blood pressure 136/81 with a pulse 101, temperature 99.2. He is 94% on room air. General description is a middle-age male lying in bed in no distress. RESPIRATORY SYSTEM: Unlabored breathing. Clear to auscultation anteriorly. HEART: S1, S2. Regular rate and rhythm. ABDOMEN: Soft, no tenderness. Right wrist wound is currently dress, no obvious drainage. LABS: Hemoglobin is 13.2, white count 7.3, BUN of 11, creatinine 0.60. DIAGNOSTIC IMPRESSION AND PLAN: Patient methicillin-susceptible Staphylococcus aureus right wrist osteomyelitis, status post surgical drainage. Plan at this time to switch antibiotic to cefazolin 2 grams q.8. PICC line has been placed. Duration of antibiotic should be at least 6 weeks. Once antibiotic arranged and cleared from Ortho, he should be able to go home from ID standpoint for close outpatient followup. ROSALVA
[2016-07-18 07:39] LABS: Anion Gap 8 mmol/L; Blood Urea Nitrogen 10 mg/dL (9-20); Calcium 9.7 mg/dL (8.4-10.2); Carbon Dioxide 34 mmol/L (22-30); Chloride 99 mmol/L (98-107); Glucose 101 mg/dL (74-99); Non-African American GFR(MDRD) >60 (>60 ml/min/1.73 sqM); Potassium 4.2 mmol/L (3.5-5.1); Sodium 141 mmol/L (137-145)
--- NOTE | 2016-07-18 09:33 | P.PN ---
Subjective Principal diagnosis: Infection right wrist Patient is postop day #1 from I&D of right wrist per Dr. Julien. He has pain at the surgical site as expected. He denies new complaints. He denies numbness or tingling of the digits, hand, wrist or forearm. He denies fever, chills, chest pain or shortness of breath. Objective - Vital Signs Vital signs: Vital Signs Temp 98.7 F 07/18/16 07:43 Pulse 75 07/18/16 07:43 Resp 20 07/18/16 07:43 BP 135/84 07/18/16 07:43 Pulse Ox 95 07/18/16 07:43 Intake & Output 07/17/16 07/18/16 07/18/16 18:59 06:59 18:59 Intake Total 390 1601 Output Total 3 Balance 390 1598 Intake: IV 140 801 Lactated Ringers 1,000 ml 140 @ 20 mls/hr IV .Q24H [facility] Rx#:[id number] Intake, IV Titration 250 800 Amount Lactated Ringers 1,000 ml 700 @ 100 mls/hr IV .Q10H [facility] Rx#:[id number] Vancomycin 1,500 mg In 250 Sodium Chloride 0.9% 250 ml @ 125 mls/hr IVPB Q8H [facility] Rx#:[id number] ceFAZolin 2 gm In Sodium 100 Chloride 0.9% 100 ml @ 100 mls/hr IVPB Q8HR [facility] Rx#:[id number] Output: Estimated Blood Loss 3 Other: Voiding Method Toilet Toilet # Voids 2 - Exam Inspection of the right upper extremity shows bandage and splint intact. There is no evidence of active bleeding or drainage. Digits have good perfusion. Sensation to light touch is intact. He's able to flex and extend all digits. He has active painless range of motion of the elbow. Less than 2 second cap refill present in all digits. - Constitutional General appearance: Present: no acute distress - Psychiatric Psychiatric: Present: A&O x's 3, appropriate affect, intact judgment & insight - Labs CBC & Chem 7: 07/18/16 06:20 07/18/16 06:20 Labs: Abnormal Lab Results - Last 24 Hours (Table) 07/18/16 07/18/16 Range/Units 06:20 06:20 WBC 11.1 H (3.8-10.6) k/uL Hgb 12.6 L (13.0-17.5) gm/dL Hct 38.9 L (39.0-53.0) % Carbon Dioxide 34 H (22-30) mmol/L Glucose 101 H (74-99) mg/dL Microbiology - Last 24 Hours (Table) 07/17/16 20:05 Gram Stain - Preliminary Wrist - Right Wound Culture - Preliminary 07/17/16 20:05 Gram Stain - Preliminary Wrist - Right Wound Culture - Preliminary 07/17/16 20:05 Anaerobic Culture - Preliminary Wrist - Right 07/17/16 20:05 Anaerobic Culture - Preliminary Wrist - Right 07/16/16 17:21 Blood Culture - Preliminary Blood No Growth after 24 hours Assessment and Plan (1) Cellulitis of wrist Narrative/Plan: He'll continue with pain management, wound care, medical management and IV antibiotic treatment. He has a PICC line in place. His pain medication will be increased as he states that [place] is not alleviating the pain significantly. We'll recheck wound tomorrow and make further recommendations as appropriate. Status: Acute Time with Patient: Less than 30
[2016-07-18] MEDS: PANTOPRAZOLE 40 MG TABLET PO SCH (09:40)
[2016-07-18] MEDS: HEPARIN SODIUM,PORCINE 5,000 UNIT/ML 1 ML VIAL SQ SCH ×2 (09:40→22:43)
[2016-07-18] MEDS: oxyCODONE-APAP 7.5-325MG 1 EACH TAB PO PRN ×3 (11:12→19:44)
--- NOTE | 2016-07-18 12:46 | PN ---
DATE OF SERVICE: 07/18/2016 Reason for followup is right wrist MSSA osteomyelitis. INTERVAL HISTORY: The patient is afebrile. He is currently breathing comfortably. Complained of significant amount of pain in the right wrist area post surgery. The patient denies having any chest pain, shortness of breath or cough. No abdominal pain or any diarrhea. On examination, blood pressure is 135/84 with a pulse of 75, temperature 98.7. He is 95% on room air. General description is a middle-aged male lying in bed in no distress. RESPIRATORY SYSTEM: Unlabored breathing. Clear to auscultation anteriorly. HEART: S1, S2. Regular rate and rhythm. ABDOMEN: Soft, no tenderness. Right wrist is currently dressed up, no obvious drainage on the dressing. LABS: Hemoglobin is 12.6, white count 11.1 with a BUN of 10, creatinine 0.70. DIAGNOSTIC IMPRESSION AND PLAN: The patient with right wrist methicillin-susceptible Staphylococcus aureus osteomyelitis, status post debridement. Plan at this time is to keep the patient on cefazolin 2 grams q.8, duration of antibiotic for at least 6 weeks, local wound. Will evaluate the wound tomorrow at the time of dressing changes tomorrow. PICC has already been placed and once antibiotic arranged , he should be able to go home from ID standpoint. ROSALVA
[2016-07-18] MEDS ORDERED: KETOROLAC 30 MG/ML 1 ML VIAL IVP STA (18:09)
--- NOTE | 2016-07-18 18:15 | P.PN ---
Subjective Principal diagnosis: right wrist osteomyelitis patient is a 30-year-old male admitted with right wrist wound with evidence of osteomyelitis Wound culture positive for MSSA Patient currently maintained on IV cefazolin 2 g every 8 hours, Infectious disease Dr. Lund following Patient is complaining of severe pain in his right upper extremity otherwise no complaints He has a known history of Crohn's disease which is stable at this time without any symptoms. Objective - Vital Signs Vital signs: Vital Signs Temp 98 F 07/18/16 14:20 Pulse 94 07/18/16 15:38 Resp 20 07/18/16 15:38 BP 119/69 07/18/16 14:20 Pulse Ox 96 07/18/16 14:20 Intake & Output 07/17/16 07/18/16 07/18/16 18:59 06:59 18:59 Intake Total 390 1601 Output Total 3 Balance 390 1598 Weight 86.8 kg Intake: IV 140 801 Lactated Ringers 1,000 ml 140 @ 20 mls/hr IV .Q24H [facility] Rx#:[id number] Intake, IV Titration 250 800 Amount Lactated Ringers 1,000 ml 700 @ 100 mls/hr IV .Q10H [facility] Rx#:[id number] Vancomycin 1,500 mg In 250 Sodium Chloride 0.9% 250 ml @ 125 mls/hr IVPB Q8H [facility] Rx#:[id number] ceFAZolin 2 gm In Sodium 100 Chloride 0.9% 100 ml @ 100 mls/hr IVPB Q8HR [facility] Rx#:[id number] Output: Estimated Blood Loss 3 Other: Voiding Method Toilet Toilet Toilet # Voids 2 2 - Exam HEENT head normocephalic and atraumatic Neck is supple no JVD no goiter Chest is clear to auscultation no wheezing Cardiac exam reveals regular heart sounds no murmurs Abdomen is soft nontender no organomegaly Extremity exam reveals no edema no cyanosis or clubbing right wrist is packed and dressed - Labs CBC & Chem 7: 07/18/16 06:20 07/18/16 06:20 Labs: Abnormal Lab Results - Last 24 Hours (Table) 07/18/16 07/18/16 Range/Units 06:20 06:20 WBC 11.1 H (3.8-10.6) k/uL Hgb 12.6 L (13.0-17.5) gm/dL Hct 38.9 L (39.0-53.0) % Carbon Dioxide 34 H (22-30) mmol/L Glucose 101 H (74-99) mg/dL Microbiology - Last 24 Hours (Table) 07/17/16 20:05 Gram Stain - Preliminary Wrist - Right Wound Culture - Preliminary 07/17/16 20:05 Gram Stain - Preliminary Wrist - Right Wound Culture - Preliminary 07/17/16 20:05 Anaerobic Culture - Preliminary Wrist - Right 07/17/16 20:05 Anaerobic Culture - Preliminary Wrist - Right 07/16/16 17:21 Blood Culture - Preliminary Blood No Growth after 24 hours Assessment and Plan Plan: 1. 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 initially on IV vancomycin due to his history of MRSA. currently maintained on IV cefazolin 2 g every 8 hours We'll await further antibiotic recommendations per infectious disease. Awaiting further orthopedic recommendations for possible surgical intervention. Patient did have I&D of the wrist wound 2. History of underlying Crohn's disease on Remicade as outpatient 3. GERD continue Protonix 4. Nicotine dependence: Discussed smoking cessation. Patient refuses nicotine patch at this time GI prophylaxis Protonix and DVT prophylaxis subcu heparin
[2016-07-19] MEDS: LACTATED RINGERS 1,000 ML IV SCH ×6 (00:19→23:22)
[2016-07-19] MEDS: ceFAZolin 2 GM in SODIUM CHLORIDE 0.9% 100 ML IVPB SCH ×4 (00:19→23:22)
[2016-07-19] MEDS: oxyCODONE-APAP 7.5-325MG 1 EACH TAB PO PRN ×6 (04:09→22:11)
[2016-07-19] MEDS: HYDROmorphone 1 MG/ML 1 ML SYRINGE IVP PRN ×5 (05:53→21:09)
[2016-07-19 06:15] LABS: Basophils % (A) 0 %; CH 28.9; CHCM 33.5; Eosinophils # (A) 0.2 k/uL (0-0.7); Eosinophils % (A) 3 %; HDW 2.99; HGB 12.1 gm/dL (13.0-17.5); Luc # (Auto) 0.31; Luc % (Auto) 4; Lymphocytes # (A) 2.5 k/uL (1.0-4.8); Lymphocytes % (A) 35 %; MCH 29.1 pg (25.0-35.0); MCHC 33.6 g/dL (31.0-37.0); MCV 86.7 fL (80.0-100.0); Mean Platelet Volume 6.4; Monocytes # (A) 0.8 k/uL (0-1.0); Monocytes % (A) 11 %; Neutrophils # (A) 3.3 k/uL (1.3-7.7); Neutrophils % (A) 46 %; RBC 4.16 m/uL (4.30-5.90); RDW 12.4 % (11.5-15.5); WBC 7.1 k/uL (3.8-10.6); WBC (Perox) 7.31
[2016-07-19 06:59] LABS: ALT 58 U/L (21-72); AST 52 U/L (17-59); Alkaline Phosphatase 68 U/L (38-126); Anion Gap 6 mmol/L; Blood Urea Nitrogen 9 mg/dL (9-20); Calcium 8.7 mg/dL (8.4-10.2); Carbon Dioxide 31 mmol/L (22-30); Chloride 103 mmol/L (98-107); Glucose 93 mg/dL (74-99); Non-African American GFR(MDRD) >60 (>60 ml/min/1.73 sqM); Potassium 4.2 mmol/L (3.5-5.1); Sodium 140 mmol/L (137-145); Total Bilirubin 0.5 mg/dL (0.2-1.3); Total Protein 6.1 g/dL (6.3-8.2)
[2016-07-19] MEDS: PANTOPRAZOLE 40 MG TABLET PO SCH (07:56)
[2016-07-19] MEDS: HEPARIN SODIUM,PORCINE 5,000 UNIT/ML 1 ML VIAL SQ SCH ×2 (10:41→21:18)
[2016-07-19] MEDS ORDERED: HYDROmorphone 1 MG/ML 1 ML SYRINGE IVP STA (11:02)
--- NOTE | 2016-07-19 11:26 | P.PN ---
Subjective Principal diagnosis: Right wrist infection. Status post I&D right wrist This is a 30-year-old male with history of distal radius fracture and subsequent per case pinning. One of his pin sites became infected secondary to his immunosuppression. He was admitted on 07/14/2016 with infection of the right wrist. Osteomyelitis was confirmed with MRI. He underwent incision and drainage on 07/17/2016. He had a PICC line inserted as well. His pain is improved. He has no new complaints or concerns today. Objective - Vital Signs Vital signs: Vital Signs Temp 97.4 F L 07/19/16 07:57 Pulse 68 07/19/16 07:57 Resp 20 07/19/16 07:57 BP 105/55 07/19/16 07:57 Pulse Ox 95 07/19/16 07:57 Intake & Output 07/18/16 07/19/16 07/19/16 18:59 06:59 18:59 Intake Total 540 Balance 540 Weight 86.8 kg 86.8 kg Intake: Intake, IV Titration 300 Amount Lactated Ringers 1,000 ml 300 @ 100 mls/hr IV .Q10H [facility] Rx#:[id number] Oral 240 Other: Voiding Method Toilet Toilet # Voids 2 2 - Exam His dressing is removed. On exam of the right wrist the wound looks good. Wound edges are pink. There is no active purulent drainage noted. There is mild to moderate synovitis drainage on the dressing. There is no active bleeding at this time. He has fairly good finger motion without difficulty or pain. The packing is changed along with wet-to-dry dressing. - Labs CBC & Chem 7: 07/19/16 06:00 07/19/16 06:00 Labs: Abnormal Lab Results - Last 24 Hours (Table) 07/19/16 07/19/16 Range/Units 06:00 06:00 RBC 4.16 L (4.30-5.90) m/uL Hgb 12.1 L (13.0-17.5) gm/dL Hct 36.0 L (39.0-53.0) % Carbon Dioxide 31 H (22-30) mmol/L Total Protein 6.1 L (6.3-8.2) g/dL Albumin 3.2 L (3.5-5.0) g/dL Microbiology - Last 24 Hours (Table) 07/17/16 20:05 Gram Stain - Preliminary Wrist - Right Wound Culture - Preliminary Presumptive Staph aureus 07/17/16 20:05 Gram Stain - Preliminary Wrist - Right Wound Culture - Preliminary Presumptive Staph aureus 07/16/16 17:21 Blood Culture - Preliminary Blood No Growth after 48 hours 07/14/16 16:00 Anaerobic Culture - Final Wrist - Right Assessment and Plan (1) Cellulitis of wrist Status: Acute (2) Postoperative infection Status: Acute Plan: The clinical findings are discussed the patient. Is recommended that he be admitted for IV antibiotics with his history of immune suppression and history with MRSA in the past.we'll order a K pad for moist heat. His dressing should be changed every other day and the wound is repacked. infectious disease will be managing his home IV antibiotics. He may be discharged to home tomorrow.
--- NOTE | 2016-07-19 18:42 | P.PN ---
Subjective Principal diagnosis: right wrist osteomyelitis patient is a 30-year-old male admitted with right wrist wound with evidence of osteomyelitis Wound culture positive for MSSA Patient currently maintained on IV cefazolin 2 g every 8 hours, Infectious disease Dr. Lund following Patient is complaining of severe pain in his right upper extremity otherwise no complaints He has a known history of Crohn's disease which is stable at this time without any symptoms. Objective - Vital Signs Vital signs: Vital Signs Temp 97.6 F 07/19/16 16:12 Pulse 75 07/19/16 16:12 Resp 20 07/19/16 16:12 BP 122/62 07/19/16 16:12 Pulse Ox 93 L 07/19/16 16:12 Intake & Output 07/18/16 07/19/16 07/19/16 18:59 06:59 18:59 Intake Total 540 600 Balance 540 600 Weight 86.8 kg 86.8 kg Intake: Intake, IV Titration 300 Amount Lactated Ringers 1,000 ml 300 @ 100 mls/hr IV .Q10H [facility] Rx#:[id number] Oral 240 600 Other: Voiding Method Toilet Toilet Toilet # Voids 2 2 4 - Exam HEENT head normocephalic and atraumatic Neck is supple no JVD no goiter Chest is clear to auscultation no wheezing Cardiac exam reveals regular heart sounds no murmurs Abdomen is soft nontender no organomegaly Extremity exam reveals no edema no cyanosis or clubbing right wrist is packed and dressed - Labs CBC & Chem 7: 07/19/16 06:00 07/19/16 06:00 Labs: Abnormal Lab Results - Last 24 Hours (Table) 07/19/16 07/19/16 Range/Units 06:00 06:00 RBC 4.16 L (4.30-5.90) m/uL Hgb 12.1 L (13.0-17.5) gm/dL Hct 36.0 L (39.0-53.0) % Carbon Dioxide 31 H (22-30) mmol/L Total Protein 6.1 L (6.3-8.2) g/dL Albumin 3.2 L (3.5-5.0) g/dL Microbiology - Last 24 Hours (Table) 07/17/16 20:05 Gram Stain - Final Wrist - Right Wound Culture - Final Staphylococcus aureus 07/17/16 20:05 Gram Stain - Preliminary Wrist - Right Wound Culture - Preliminary Presumptive Staph aureus 07/16/16 17:21 Blood Culture - Preliminary Blood No Growth after 48 hours 07/14/16 16:00 Anaerobic Culture - Final Wrist - Right Assessment and Plan Plan: 1. 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 initially on IV vancomycin due to his history of MRSA. currently maintained on IV cefazolin 2 g every 8 hours We'll await further antibiotic recommendations per infectious disease. Awaiting further orthopedic recommendations for possible surgical intervention. Patient did have I&D of the wrist wound 2. History of underlying Crohn's disease on Remicade as outpatient 3. GERD continue Protonix 4. Nicotine dependence: Discussed smoking cessation. Patient refuses nicotine patch at this time GI prophylaxis Protonix and DVT prophylaxis subcu heparin Awaiting delivery of IV antibiotic to his home possible discharge tomorrow
--- NOTE | 2016-07-19 20:37 | PN ---
DATE OF SERVICE: 07/19/2016 REASON FOR FOLLOWUP: Right wrist MSSA infection with osteomyelitis. INTERVAL HISTORY: The patient is afebrile. He has been feeling better. The dressing was changed. Denies any worsening pain in the area. The patient denies any significant chest pain or cough No abdominal pain or diarrhea. On examination, blood pressure is 122/62 with a pulse of 75, temperature 97.6. He is 93% on room air. General description is a middle-aged male lying in bed in no distress. RESPIRATORY SYSTEM: Unlabored breathing. Clear to auscultation anteriorly. HEART: S1, S2. Regular rate and rhythm. ABDOMEN: Soft. No tenderness. Right wrist wound is currently dressed; however, looking at the picture of the wound, it is pretty clean, with no significant surrounding swelling or redness. LABS: Hemoglobin is 12.1, white count 7.1 with a BUN of 9, creatinine 0.67. DIAGNOSTIC IMPRESSION AND PLAN: Patient with methicillin-susceptible Staphylococcus aureus right wrist osteomyelitis, status post drainage with a deep wound. PLAN: At this time continue patient on cefazolin 2 grams IV q.8 for a total of 6 weeks, weekly monitoring of BMP and sed rate. Wound is currently being packed with Iodoform. That can be switched over to Aquacel Silver for better healing with close outpatient followup.
[2016-07-20] MEDS: LACTATED RINGERS 1,000 ML IV SCH ×2 (00:41→09:45)
[2016-07-20] MEDS: HYDROmorphone 1 MG/ML 1 ML SYRINGE IVP PRN ×3 (00:42→06:26)
[2016-07-20] MEDS: oxyCODONE-APAP 7.5-325MG 1 EACH TAB PO PRN ×3 (02:36→09:33)
[2016-07-20 07:26] VITALS: BP 112/66; PULSE 82; RESP 14; TEMP 98.3
--- NOTE | 2016-07-20 08:36 | P.DS ---
Providers Date of admission: 07/14/16 15:40 Expected date of discharge: 07/20/16 Attending physician: Abilio Julien Consults: 07/14/16 14:37 Consult Physician Routine Consulting Provider: Aly Lund Consult Reason/Comments: Eval right wrist infection Do you want consulting provider notified?: Yes 07/14/16 14:42 Consult Physician Urgent Consulting Provider: Lizzie Heck Consult Reason/Comments: medical management Do you want consulting provider notified?: Yes 07/15/16 10:33 Consult Physician Routine Consulting Provider: Adal Padilla Consult Reason/Comments: medical Do you want consulting provider notified?: Already Contacted 07/19/16 11:55 Consult Physician Routine Consulting Provider: Mary Ann Jin Consult Reason/Comments: pain management for home Do you want consulting provider notified?: Yes Primary care physician: Lizzie Heck - Discharge Diagnosis(es) (1) Cellulitis of wrist Current Visit: Yes Status: Acute Priority: Medium (2) Postoperative infection Current Visit: Yes Status: Acute Hospital Course: This is a 22-year-old male who is admitted to [facility] on with deep infection of the right wrist. He has history of distal radius fracture with percutaneous pinning in April 2016. He has a long history of Crohn's disease and is on immunosuppression. He has history of MRSA infection in the past. Cultures taken in the office on 07/14/2016 reveal MSSA. He was taken to the operating room on 07/17/2016 for incision and drainage with irrigation of antibiotic solution. The wound was packed open. He has been having packing changes every other day with wet-to-dry dressing. A PICC line was inserted on 07/17/2016. The patient may be discharged to home with home care. He is to continue dressing and packing changes every other day. He has no point with the wound care center on 08-01-16. At that point they will be managing his wound care. I have asked pain management to evaluate the patient for home pain medication. The patient has been on Dilaudid and Percocet throughout his stay. Please see med rec for accurate list of home medications. Plan - Discharge Summary New Discharge Prescriptions: ceFAZolin [Kefzol] 2,000 mg IVPB Q8HR #126 bag Discharge Medication List Omeprazole [PriLOSEC] 20 mg PO DAILY 06/09/14 [History] inFLIXimab [Remicade] 1 injection SQ Q40D 06/09/14 [History] traMADol HCl [Ultram] 100 mg PO Q8HR PRN 07/21/15 [History] HYDROcodone/APAP 5-325MG [Truro 5-325] 1 - 2 tab PO Q6H PRN 07/14/16 [History] ceFAZolin [Kefzol] 2,000 mg IVPB Q8HR #126 bag 07/18/16 [Rx] Follow up Appointment(s)/Referral(s): [facility], [NON-STAFF] - [facility], [REFERRING] - Abilio Julien MD [STAFF PHYSICIAN] - 1 Week Aly Lund MD [STAFF PHYSICIAN] - 1 Week Activity/Diet/Wound Care/Special Instructions: Wound repacking and dressing change every other day. Follow-up with wound care center on 08-01-16 as scheduled. Discharge Disposition: HOME WITH HOME HEALTH SERVICES
--- NOTE | 2016-07-20 09:27 | P.CONS ---
History of Present Illness - Reason for Consult Consult date: 07/20/16 - History of Present Illness This is the initial consultation visit for this 30 years old male , was admitted to [facility] because of osteomyelitis in the right wrist area, patient had I&D of the right wrist, patient started on Percocet 7.5/ 325 every 4 hours, and also is on Dilaudid IV 1 mg every 3 hours,, she will describe the intensity of the pain as aching and nagging pain localized in the right wrist area, he denies any side effect of the medication he denies any excessive drowsiness or sleepiness, and he preferred the current pain medication helping him to control his pain Past Medical History Additional Past Medical History / Comment(s): chrons-diagnosed at age 9, colostomy 2001, psoriasis, atopic dermatitis, cellulitis History of Any Multi-Drug Resistant Organisms: None Reported Year Discovered:: 2006(PER PT HAD IT AROUND 10 YEARS AGO) MDRO Source:: SKIN ABCESS Past Surgical History: Bowel Resection Additional Past Surgical History / Comment(s): pt states that he has no large intestine Past Anesthesia/Blood Transfusion Reactions: No Reported Reaction Additional Past Anesthesia/Blood Transfusion Reaction / Comm: HAS RECIEVED PLATLETS IN PAST. 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 Is not an alcohol user. He over is a tobacco smoker of less than one pack per day. Denies recreational drug use. Does have a girlfriend. No animals in the home. No experience. No extensive travels. Smoking Status: Current every day smoker Past Alcohol Use History: Occasional Additional Past Alcohol Use History / Comment(s): started smoking at age 19, smokes 1/2 ppd. occ alcohol. Past Drug Use History: None Reported - Past Family History Father Family Medical History: Cancer Additional Family Medical History / Comment(s): skin cancer. worked as collect on delivery clerk and was shot in head but survived Mother Family Medical History: No Reported History Additional Family Medical History / Comment(s): skin cancer Medications and Allergies Home Medications Medication Instructions Recorded Confirmed Type Omeprazole [PriLOSEC] 20 mg PO DAILY 06/09/14 07/14/16 History inFLIXimab [Remicade] 1 injection SQ Q40D 06/09/14 07/14/16 History traMADol HCl [Ultram] 100 mg PO Q8HR PRN 07/21/15 07/14/16 History HYDROcodone/APAP 5-325MG [[place] 1 - 2 tab PO Q6H PRN 07/14/16 07/14/16 History 5-325] Allergies Allergy/AdvReac Type Severity Reaction Status Date / Time No Known Allergies Allergy Verified 07/21/15 09:47 Physical Exam Vitals: Vital Signs Temp Pulse Pulse Resp BP Pulse Ox 07/20/16 07:25 98.3 F 82 14 112/66 96 07/19/16 23:00 99.2 F 89 18 127/72 97 07/19/16 16:12 97.6 F 75 20 122/62 93 L 07/19/16 16:00 68 75 20 Intake and Output 07/19/16 07/20/16 07/20/16 22:59 06:59 14:59 Intake Total 1200 Balance 1200 Intake: Oral 1200 Other: Voiding Method Toilet # Voids 2 1 Physical Examinations : 1-Constitutiona : Cooperative , not in acute distress . 2-HEENT : nech ; supple , no Lymphadenopathy , no Thyromegaly , normal thyroid size . eyes : no ptosis , no icterus, no photophobia . ENT : normal of hearing , normal oropharynx , no Thrush . 3- Respiratory : Chest clear to auscultations Bilaterally , no wheezing , no Rhonchi . 4- Cardiovascular : regular rate and rhythem , S1 , S2 , no S3 , no S4. 5- Gastrointestinal : abdomen soft no tenderness , bowel sounds positive all four quadrents , no organomegally . 6- Genitourinary : Defferred . 7- neurologic : Cranial nerve II to XII intact , no focal neurological deffecit . 8-psychatric : alert , oriented X 3 , appropriate affect , intact judgment and insight . 9-Lymphatic : no Lymphadenopathy . 10- musculoskeltal : Right wrist cast, she complained of right wrist pain Results CBC & Chem 7: 07/19/16 06:00 07/19/16 06:00 Labs: Microbiology - Last 24 Hours (Table) 07/17/16 20:05 Gram Stain - Final Wrist - Right Wound Culture - Final Staph aureus 07/16/16 17:21 Blood Culture - Preliminary Blood No Growth after 72 hours 07/17/16 20:05 Gram Stain - Final Wrist - Right Wound Culture - Final Staphylococcus aureus Assessment and Plan Plan: Assessment and plan= acute right wrist pain secondary to osteomyelitis status post I&D of the right wrist, patient currently on Percocet 7.5/325 every 4 hours , denies any side effect of the medication, we will continue with current medication. Patient has history of Crohn's disease, and I recommend, discontinue Motrin ,and start patient on Celebrex 200 mg daily when necessary Time with Patient: Less than 30
[2016-07-20] MEDS: PANTOPRAZOLE 40 MG TABLET PO SCH (09:37)
[2016-07-20] MEDS: ceFAZolin 2 GM in SODIUM CHLORIDE 0.9% 100 ML IVPB SCH (09:45)
[2016-07-20] MEDS: HEPARIN SODIUM,PORCINE 5,000 UNIT/ML 1 ML VIAL SQ SCH (09:47)
[2016-07-20 10:27] LABS: Anion Gap 8 mmol/L; Blood Urea Nitrogen 8 mg/dL (9-20); Carbon Dioxide 31 mmol/L (22-30); Chloride 101 mmol/L (98-107); Glucose 113 mg/dL (74-99); Non-African American GFR(MDRD) >60 (>60 ml/min/1.73 sqM); Potassium 3.7 mmol/L (3.5-5.1); Sodium 140 mmol/L (137-145)
[2016-07-20 10:33] LABS: Basophils # (A) 0.1 k/uL (0-0.2); Basophils % (A) 1 %; CH 28.9; CHCM 33.5; Eosinophils # (A) 0.3 k/uL (0-0.7); Eosinophils % (A) 4 %; HCT 35.5 % (39.0-53.0); HDW 2.93; Luc % (Auto) 4; Lymphocytes # (A) 2.7 k/uL (1.0-4.8); Lymphocytes % (A) 33 %; MCH 29.3 pg (25.0-35.0); MCHC 33.8 g/dL (31.0-37.0); MCV 86.6 fL (80.0-100.0); Mean Platelet Volume 6.5; Monocytes # (A) 0.9 k/uL (0-1.0); Monocytes % (A) 11 %; Neutrophils # (A) 3.8 k/uL (1.3-7.7); Neutrophils % (A) 48 %; RBC 4.09 m/uL (4.30-5.90); RDW 12.4 % (11.5-15.5); WBC (Perox) 7.83
--- NOTE | 2016-07-20 12:11 | P.PN ---
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 He had worsening swelling and redness of the left wrist and has been admitted to the hospital for IV antibiotics. MRI of the wrist compatible with osteomyelitis related to patient's fracture and suggestive of fistula formation. Patient is followed by infectious disease as well as orthopedics. Patient did undergo irrigation and debridement of wrist on July 17. Tolerated procedure well. Has been showing improvement. In the scheduled for discharge afternoon. Objective - Vital Signs Vital signs: Vital Signs Temp 98.3 F 07/20/16 07:25 Pulse 82 07/20/16 07:25 Resp 14 07/20/16 07:25 BP 112/66 07/20/16 07:25 Pulse Ox 96 07/20/16 07:25 Intake & Output 07/19/16 07/20/16 07/20/16 18:59 06:59 18:59 Intake Total 600 1200 Balance 600 1200 Weight 86.8 kg Intake: Oral 600 1200 Other: Voiding Method Toilet # Voids 4 1 - Exam Head normocephalic Neck supple Lungs clear to auscultation bilaterally no wheezing or crackles Heart regular rate and rhythm S1-S2, no rub or gallop Abdomen is soft nontender nondistended positive bowel sounds no hepatosplenomegaly Extremities no edema bilateral lower extremities. Right wrist bandage clean dry and intact Neuro alert and orientated to 3 - Labs CBC & Chem 7: 07/20/16 10:00 07/20/16 10:00 Labs: Abnormal Lab Results - Last 24 Hours (Table) 07/20/16 07/20/16 Range/Units 10:00 10:00 RBC 4.09 L (4.30-5.90) m/uL Hgb 12.0 L (13.0-17.5) gm/dL Hct 35.5 L (39.0-53.0) % Carbon Dioxide 31 H (22-30) mmol/L BUN 8 L (9-20) mg/dL Glucose 113 H (74-99) mg/dL Microbiology - Last 24 Hours (Table) 07/17/16 20:05 Gram Stain - Final Wrist - Right Wound Culture - Final Staph aureus 07/16/16 17:21 Blood Culture - Preliminary Blood No Growth after 72 hours 07/17/16 20:05 Gram Stain - Final Wrist - Right Wound Culture - Final Staphylococcus aureus Assessment and Plan Plan: 1. 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 Status post irrigation and debridement on July 17. Infectious diseases recommending ceftezole in for 6 more weeks 2. History of underlying Crohn's disease on Remicade as outpatient 3. GERD continue Protonix 4. Nicotine dependence: Discussed smoking cessation. Patient refuses nicotine patch at this time GI prophylaxis Protonix and DVT prophylaxis subcu heparin Patient is medically stable for discharge. Patient was seen by pain service the recommending Percocet and Celebrex
--- NOTE | 2016-07-20 14:56 | PN ---
DATE OF SERVICE: 07/20/2016 Reason for followup is right wrist MSSA and osteomyelitis. INTERVAL HISTORY: The patient is afebrile, has been breathing comfortably. Pain to the right wrist is currently controlled. Patient denies significant chest pain, shortness of breath, cough. No abdominal pain or any diarrhea. On examination, blood pressure 112/66 with a pulse of 82, temperature 98.3. He is 96% on room air. General description is a middle-age male up, in the bed in no distress. RESPIRATORY SYSTEM: Unlabored breathing. Clear to auscultation. HEART: S1, S2 with regular rate and rhythm. ABDOMEN: No obvious drainage on the dressing. LABS: Hemoglobin is 12.0 creatinine 8.0, BUN of 8, creatinine 0.70. All cultures with MSSA. Blood culture has been negative. DIAGNOSTIC IMPRESSION AND PLAN: Patient with methicillin-susceptible Staphylococcus aureus, right wrist osteomyelitis, status post debridement of the wound, currently on cefazolin. PLAN: At this time is to finish therapy with cefazolin 2 gm q.8 for a total of 6 weeks with weekly monitoring of CBC, BMP and sed rate in outpatient followup.
== END 2016-07-20 13:42 | disposition home health service (06) | DRG 511 ==
LOC: 5MS5E 15:40 → 4MS4W 07-19 20:56
PROVIDERS: ADMIT Orthopaedic Surgery; ATTEND Orthopaedic Surgery
PROC: 0PBH0ZZ Excision of Right Radius, Open Approach (ICD-10-PCS; principal; 2016-07-17 13:00)
PROC: B5181ZA Fluoroscopy of Superior Vena Cava using Low Osmolar Contrast, Guidance (ICD-10-PCS; 2016-07-17 13:00)
PROC: 02HV33Z Insertion of Infusion Device into Superior Vena Cava, Percutaneous Approach (ICD-10-PCS; 2016-07-17 13:00)
PROC: B548ZZA Ultrasonography of Superior Vena Cava, Guidance (ICD-10-PCS; 2016-07-17 13:00)
DX: T84.612A Infection and inflammatory reaction due to internal fixation device of right radius, initial encounter (principal); M86.131 Other acute osteomyelitis, right radius and ulna; K50.90 Crohn's disease, unspecified, without complications; L03.113 Cellulitis of right upper limb; Y79.8 Miscellaneous orthopedic devices associated with adverse incidents, not elsewhere classified; B95.61 Methicillin susceptible Staphylococcus aureus infection as the cause of diseases classified elsewhere; Z72.0 Tobacco use; Z79.899 Other long term (current) drug therapy; Z86.14 Personal history of Methicillin resistant Staphylococcus aureus infection
CPT/HCPCS: 36569; 76937; 77001; 80048; 80053; 80202; 85025; 85652; 87040; 87070; 87075; 87077; 87186; 87205; 89050; 89060

== ENCOUNTER 2016-08-31 11:42 | Inpatient (IN) | payer BC ==
[2016-08-31] MEDS ORDERED: SODIUM CHLORIDE 0.9% 1,000 ML IV STA ×2 (11:55)
[2016-08-31] MEDS ORDERED: ACETAMINOPHEN TAB 325 MG TAB PO STA (11:55)
[2016-08-31] MEDS ORDERED: PIPERACILLIN-TAZOBACTAM 3.375 GM in DEXTROSE/WATER 1 50ML.BAG IVPB STA (12:05)
[2016-08-31] MEDS ORDERED: KETOROLAC 30 MG/ML 1 ML VIAL IVP STA (12:24)
--- NOTE | 2016-08-31 12:27 | ED ---
General Adult HPI - General Chief complaint: Fever Stated complaint: FEVER X 5 DAYS, HAS PIC LINE Time Seen by Provider: 08/31/16 11:53 Source: patient, RN notes reviewed, old records reviewed Mode of arrival: ambulatory Limitations: no limitations - History of Present Illness Initial comments: Chief complaint and history of present illness a 31-year-old male here with fever. The patient has history of chronic Crohn's disease. Also for the past several months he's been being treated with IV antibiotics for osteomyelitis right wrist post fracture and open repair. Today the patient developed a fever. He does have a PICC line in the right arm. Sepsis protocol be followed. - Related Data Home Medications Medication Instructions Recorded Confirmed Omeprazole [PriLOSEC] 20 mg PO DAILY 06/09/14 08/31/16 inFLIXimab [Remicade] 1 injection SQ Q40D 06/09/14 08/31/16 Diclofenac Sodium 50 mg PO BID 08/31/16 08/31/16 Hydrocodone/Acetaminophen [[place] 1 tab PO TID PRN 08/31/16 08/31/16 5-325 Tablet] Previous Rx's Medication Instructions Recorded ceFAZolin [Kefzol] 2,000 mg IVPB Q8HR #126 bag 07/18/16 Allergies Allergy/AdvReac Type Severity Reaction Status Date / Time No Known Allergies Allergy Verified 08/31/16 13:27 Review of Systems ROS Statement: Those systems with pertinent positive or pertinent negative responses have been documented in the HPI. Review of systems no complaint of headache or visual acuity changes no chest pain or cough or shortness of breath. He has chronic abdominal pain as he states his Crohn's is flaring up he has not been able to have his Remicade which works well for the past 12 weeks. Denies any surface C-sections denies any urinary tract problems. Blood cultures will be taken. IV Zosyn will be started after blood cultures are obtained. All systems reviewed. Past medical problems including Crohn's disease, osteomyelitis currently being treated with IV antibiotics or a PICC line in the right arm for the past several weeks to months. He's also had a bowel resection due to Crohn's. Family history noncontributory no known ALLERGIES. He is currently receiving via PICC line. Occasional ROS Other: All systems not noted in ROS Statement are negative. Past Medical History Additional Past Medical History / Comment(s): chrons-diagnosed at age 9, colostomy 2001, psoriasis, atopic dermatitis, cellulitis History of Any Multi-Drug Resistant Organisms: None Reported Date of last positivie culture/infection: 2006(PER PT HAD IT AROUND 10 YEARS AGO ) MDRO Source:: SKIN ABCESS Past Surgical History: Bowel Resection Additional Past Surgical History / Comment(s): pt states that he has no large intestine Past Anesthesia/Blood Transfusion Reactions: No Reported Reaction Additional Past Anesthesia/Blood Transfusion Reaction / Comment(s): HAS RECIEVED PLATLETS IN PAST. Past Psychological History: No Psychological Hx Reported Additional Psychological History / Comment(s): Single. [employer] of a local [employer] at night. Is not an alcohol user. He over is a tobacco smoker of less than one pack per day. Denies recreational drug use. Does have a girlfriend. No animals in the home. No experience. No extensive travels. Smoking Status: Current every day smoker Past Alcohol Use History: Occasional Additional Past Alcohol Use History / Comment(s): started smoking at age 19, smokes 1/2 ppd. occ alcohol. Past Drug Use History: None Reported - Past Family History Father Family Medical History: Cancer Additional Family Medical History / Comment(s): skin cancer. worked as television specialist and was shot in head but survived Mother Family Medical History: No Reported History Additional Family Medical History / Comment(s): skin cancer General Exam - General Exam Comments Initial Comments: General: The patient is awake and alert, in no distress, and does not appear acutely ill. Patient continues to complain of chronic pain to her right wrist though is improving. The patient presents with a fever today of 101 and repeated here in emergency room. Pulse was up her story rate 18 blood pressure 138/77 with a pulse ox 96% room air Eye: Pupils are equal, round and reactive to light, extra-ocular movements are intact ; there is normal conjunctiva bilaterally. No signs of icterus. Ears, nose, mouth and throat: There are moist mucous membranes and no oral lesions. Neck: The neck is supple, there is no tenderness , no anterior cervical lymphadenopathy. Cardiovascular: Tachycardic heart rate 126.. No murmur, rub or gallop is appreciated. Respiratory: Lungs are clear to auscultation, respirations are non-labored, breath sounds are equal. No wheezes, stridor, rales, or rhonchi. Gastrointestinal: Patient states he has a history of Crohn's disease he has an ileostomy. As functioning. He has not noticed any blood in the collecting bag. He does have discomfort to the abdomen but no guarding. There is no tenderness to palpation in the midline. There is no obvious deformity. No rashes noted. Musculoskeletal: Patient has a cockup splint on his right wrist brace had several surgeries for fractured wrist with surgical manipulation. Neurological: No focal or lateralizing findings. Skin: No rashes. Limitations: no limitations Course Vital Signs 08/31/16 08/31/16 08/31/16 11:45 11:50 12:50 Temperature 100.6 F H 101.6 F H Pulse Rate 121 H 103 H Respiratory 18 18 Rate Blood Pressure 138/77 113/61 O2 Sat by Pulse 96 96 Oximetry Medical Decision Making - Medical Decision Making Medical decision making; patient's white count is 10 hemoglobin 13 hematocrit 39 with potassium 4.3, BUN 11 creatinine 0.6 GFR greater than 60. Glucose 96. AST ALT elevated. Urine clean no signs of infection. Chest x-ray is done AP and lateral view. The radiologist's final impression is no acute cardiopulmonary process. As read by Dr. De La Cruz The patient be admitted the hospital for evaluation. Including consultation from infectious disease. - Lab Data Result diagrams: 08/31/16 12:33 08/31/16 12:33 Lab Results 08/31/16 08/31/16 08/31/16 Range/Units 12:30 12:33 12:33 WBC 10.4 (3.8-10.6) k/uL RBC 4.71 (4.30-5.90) m/uL Hgb 13.0 (13.0-17.5) gm/dL Hct 39.4 (39.0-53.0) % MCV 83.6 (80.0-100.0) fL MCH 27.5 (25.0-35.0) pg MCHC 32.9 (31.0-37.0) g/dL RDW 13.2 (11.5-15.5) % Plt Count 259 (150-450) k/uL Neutrophils % 63 % Lymphocytes % 19 % Monocytes % 10 % Eosinophils % 4 % Basophils % 0 % Neutrophils # 6.6 (1.3-7.7) k/uL Lymphocytes # 2.0 (1.0-4.8) k/uL Monocytes # 1.1 H (0-1.0) k/uL Eosinophils # 0.4 (0-0.7) k/uL Basophils # 0.0 (0-0.2) k/uL Sodium 140 (137-145) mmol/L Potassium 4.3 (3.5-5.1) mmol/L Chloride 106 (98-107) mmol/L Carbon Dioxide 21 L (22-30) mmol/L Anion Gap 13 mmol/L BUN 11 (9-20) mg/dL Creatinine 0.60 L (0.66-1.25) mg/dL Est GFR (MDRD) Af Amer >60 (>60 ml/min/1.73 sqM) Est GFR (MDRD) Non-Af >60 (>60 ml/min/1.73 sqM) Glucose 96 (74-99) mg/dL Plasma Lactic Acid Fritz (0.7-2.0) mmol/L Calcium 9.3 (8.4-10.2) mg/dL Total Bilirubin 0.4 (0.2-1.3) mg/dL AST 60 H (17-59) U/L ALT 80 H (21-72) U/L Alkaline Phosphatase 77 (38-126) U/L Total Protein 7.0 (6.3-8.2) g/dL Albumin 4.0 (3.5-5.0) g/dL Urine Color Dark Yellow Urine Appearance Clear (Clear) Urine pH 5.5 (5.0-8.0) Ur Specific [place] 1.023 (1.001-1.035) Urine Protein Trace H (Negative) Urine Glucose (UA) Negative (Negative) Urine Ketones Trace H (Negative) Urine Blood Trace H (Negative) Urine Nitrite Negative (Negative) Urine Bilirubin Negative (Negative) Urine Urobilinogen <2.0 (<2.0) mg/dL Ur Leukocyte Esterase Negative (Negative) Urine RBC <1 (0-5) /hpf Urine WBC 1 (0-5) /hpf Amorphous Sediment Rare H (None) /hpf Urine Mucus Rare H (None) /hpf 08/31/16 Range/Units 12:33 WBC (3.8-10.6) k/uL RBC (4.30-5.90) m/uL Hgb (13.0-17.5) gm/dL Hct (39.0-53.0) % MCV (80.0-100.0) fL MCH (25.0-35.0) pg MCHC (31.0-37.0) g/dL RDW (11.5-15.5) % Plt Count (150-450) k/uL Neutrophils % % Lymphocytes % % Monocytes % % Eosinophils % % Basophils % % Neutrophils # (1.3-7.7) k/uL Lymphocytes # (1.0-4.8) k/uL Monocytes # (0-1.0) k/uL Eosinophils # (0-0.7) k/uL Basophils # (0-0.2) k/uL Sodium (137-145) mmol/L Potassium (3.5-5.1) mmol/L Chloride (98-107) mmol/L Carbon Dioxide (22-30) mmol/L Anion Gap mmol/L BUN (9-20) mg/dL Creatinine (0.66-1.25) mg/dL Est GFR (MDRD) Af Amer (>60 ml/min/1.73 sqM) Est GFR (MDRD) Non-Af (>60 ml/min/1.73 sqM) Glucose (74-99) mg/dL Plasma Lactic Acid Fritz 0.9 (0.7-2.0) mmol/L Calcium (8.4-10.2) mg/dL Total Bilirubin (0.2-1.3) mg/dL AST (17-59) U/L ALT (21-72) U/L Alkaline Phosphatase (38-126) U/L Total Protein (6.3-8.2) g/dL Albumin (3.5-5.0) g/dL Urine Color Urine Appearance (Clear) Urine pH (5.0-8.0) Ur Specific [place] (1.001-1.035) Urine Protein (Negative) Urine Glucose (UA) (Negative) Urine Ketones (Negative) Urine Blood (Negative) Urine Nitrite (Negative) Urine Bilirubin (Negative) Urine Urobilinogen (<2.0) mg/dL Ur Leukocyte Esterase (Negative) Urine RBC (0-5) /hpf Urine WBC (0-5) /hpf Amorphous Sediment (None) /hpf Urine Mucus (None) /hpf Disposition Clinical Impression: Osteomyelitis of right wrist Disposition: ADMITTED IP TO THIS HOSP Condition: Fair Referrals: Lizzie Heck MD [Primary Care Provider] - 1-2 days
[2016-08-31 12:49] LABS: Basophils % (A) 0 %; CH 27.7; CHCM 33.2; Eosinophils # (A) 0.4 k/uL (0-0.7); Eosinophils % (A) 4 %; HCT 39.4 % (39.0-53.0); HDW 3.04; Luc # (Auto) 0.37; Luc % (Auto) 4; Lymphocytes % (A) 19 %; MCH 27.5 pg (25.0-35.0); MCHC 32.9 g/dL (31.0-37.0); MCV 83.6 fL (80.0-100.0); Mean Platelet Volume 6.3; Monocytes # (A) 1.1 k/uL (0-1.0); Monocytes % (A) 10 %; Neutrophils # (A) 6.6 k/uL (1.3-7.7); Neutrophils % (A) 63 %; RBC 4.71 m/uL (4.30-5.90); RDW 13.2 % (11.5-15.5); WBC 10.4 k/uL (3.8-10.6); WBC (Perox) 10.39
[2016-08-31 13:03] LABS: ALT 80 U/L (21-72); AST 60 U/L (17-59); Alkaline Phosphatase 77 U/L (38-126); Anion Gap 13 mmol/L; Blood Urea Nitrogen 11 mg/dL (9-20); Calcium 9.3 mg/dL (8.4-10.2); Carbon Dioxide 21 mmol/L (22-30); Chloride 106 mmol/L (98-107); Glucose 96 mg/dL (74-99); Non-African American GFR(MDRD) >60 (>60 ml/min/1.73 sqM); Potassium 4.3 mmol/L (3.5-5.1); Sodium 140 mmol/L (137-145); Total Bilirubin 0.4 mg/dL (0.2-1.3)
[2016-08-31 13:09] LABS: Amorphous Sediment,Urine Rare /hpf; Appearance,Urine Clear (Clear); Bilirubin,Urine Negative (Negative); Glucose,Urine (UA) Negative (Negative); Ketones,Urine Trace (Negative); Leukocyte Esterase,Urine Negative (Negative); Mucus,Urine Rare /hpf; Nitrite,Urine Negative (Negative); PH, Urine 5.5 (5.0-8.0); Particle Count 3959; Protein,Urine Trace (Negative); RBC,Urine <1 /hpf (0-5); Specific Gravity,Urine 1.023 (1.001-1.035); UA Billing (MACRO vs. MICRO) MICRO; Urobilinogen,Urine <2.0 mg/dL (<2.0); WBC,Urine 1 /hpf (0-5)
--- NOTE | 2016-08-31 13:24 | XR ---
EXAMINATION TYPE: XR chest 2V DATE OF EXAM: 08/31/2016 COMPARISON: 07/27/2015 HISTORY: Fever TECHNIQUE: Frontal and lateral views of the chest are obtained. FINDINGS: Right-sided PICC line is appropriately placed with its distal tip overlying the SVC. There is no focal air space opacity. No evidence for pneumothorax. No pleural effusion. The cardiac silhouette size is within normal limits. The osseous structures are grossly intact. IMPRESSION: 1. No acute cardiopulmonary process.
[2016-08-31] MEDS ORDERED: NALOXONE 0.4 MG/ML 1 ML VIAL IV PRN (14:01)
[2016-08-31] MEDS ORDERED: IV VANCOMYCIN PER PHARMACY 1 EACH MISC MISCELLANE PRN (14:30)
--- NOTE | 2016-08-31 15:28 | P.HPIM ---
History of Present Illness H&P Date: 08/31/16 Chief Complaint: Fever with tenderness at PICC line site on his right arm This is a 31-year-old male, patient of Dr. Hathaway. He has a known past medical history of Crohn's disease was diagnosed age 9 and required a colostomy placement in 2001. Patient also had been on Remicade. But since his infection patient has not been on the Remicade. Patient has osteomyelitis in the right wrist. He fell back in April and fractured the radius his right wrist. He required pinning in April [address] Julien. He developed infection in that right wrist an MRI of the wrist had shown osteomyelitis. Patient was hospitalized in 07/17/2016 at [facility] required irrigation and drainage. Wound Cultures grew MSSA. He was discharged with Kefzol 2000 g IV every 8 hours. Continued to have problems with that wrist. And this went to see an orthopedic surgeon in [facility] in July 2016. He required again to irrigation and debridements. And has been maintained on the IV Kefzol since then. He is followed by Dr. Butterfield. Patient reports over the last 5 days he's noticed some tenderness at the PICC line site and he started to have low-grade fevers. Today he was having higher grade fevers became concerned and presented to the emergency room. In the emergency room he had a temp of 101.6 heart rate of 121. White count was only 10.4 and lactic acid normal at 0.9. Sepsis protocol was placed to started on IV fluids and IV Zosyn. Infectious disease was consulted and they added IV vancomycin. PICC line was removed in the ER and tip was sent for culture. Blood cultures and urine culture obtained. Chest x- rays negative. Patient also had a recent stool checked on 08/29/[address] Butterfield office in the stool was negative for C. diff. Patient reports he saw his GI doctor and was started on diclofenac sodium shortly due to his Crohn's discomfort. He reports improvement in his pain as well as his stools are more formed through his colostomy. He denies any blood in the stools. Patient denies any nausea or vomiting. Denies any burning with urination. Denies any skin rashes. Denies any cough sore throat earache or runny nose. Review of Systems Please refer to HPI otherwise unremarkable Past Medical History Past Medical History: Skin Disorder Additional Past Medical History / Comment(s): 04/2016 R distal radius fracture with surgery/pinning-pins removed-then infection, (osteomyelitis), and had I&Ds , picc line and IV ABX. Other hx: chrons-diagnosed at age 9, colostomy 2001, PICC LINES in past with infection and sepsis per pt, psoriasis, atopic dermatitis, cellulitis, elevated liver enzymes. History of Any Multi-Drug Resistant Organisms: None Reported Date of last positivie culture/infection: 2006(PER PT HAD IT AROUND 10 YEARS AGO ) MDRO Source:: SKIN ABCESS Past Surgical History: Bowel Resection Additional Past Surgical History / Comment(s): 04/2016 ORIF distal radius with pinning-since removed, R wrist surgical site infection with I&D/picc line- current one placed 07/07/16 and removed 08/31/16 in ER, 2 other I&Ds of R wrist in [place] by Dr. Valle, previous picc lines, pt states that he has no large intestine(chron's), scrotal surgery d/t torsion, colonoscopies. Past Anesthesia/Blood Transfusion Reactions: No Reported Reaction Additional Past Anesthesia/Blood Transfusion Reaction / Comment(s): HAS RECIEVED PLATELETS IN PAST. 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 Is not an alcohol user. He over is a tobacco smoker of less than one pack per day. Denies recreational drug use. Does have a girlfriend. No animals in the home. No experience. No extensive travels. Smoking Status: Light tobacco smoker Past Alcohol Use History: Occasional Additional Past Alcohol Use History / Comment(s): started smoking at age 19, smoked 1/2 ppd and now has had 2 cigarettes in the past month. occ alcohol. Past Drug Use History: None Reported - Past Family History Father Family Medical History: Cancer Additional Family Medical History / Comment(s): skin cancer. worked as logging specialist and was shot in head but survived Mother Family Medical History: No Reported History Additional Family Medical History / Comment(s): skin cancer Medications and Allergies Home Medications Medication Instructions Recorded Confirmed Type Omeprazole [PriLOSEC] 20 mg PO DAILY 06/09/14 08/31/16 History inFLIXimab [Remicade] 1 injection SQ Q40D 06/09/14 08/31/16 History Diclofenac Sodium 50 mg PO BID 08/31/16 08/31/16 History Hydrocodone/Acetaminophen [[place] 1 tab PO TID PRN 08/31/16 08/31/16 History 5-325 Tablet] Allergies Allergy/AdvReac Type Severity Reaction Status Date / Time No Known Allergies Allergy Verified 08/31/16 13:27 Physical Exam Vitals: Vital Signs Temp Pulse Resp BP Pulse Ox 08/31/16 14:00 89 20 112/64 95 08/31/16 12:50 103 H 18 113/61 96 08/31/16 11:50 101.6 F H 08/31/16 11:45 100.6 F H 121 H 18 138/77 96 Intake and Output 08/31/16 08/31/16 08/31/16 06:59 14:59 22:59 Other: Weight 87.09 kg Patient Weight 09/01/16 06:59 Weight 87.09 kg Head normocephalic Neck supple Lungs few faint coarse sounds at the bases Heart regular rate and rhythm S1-S2, no rub or gallop Abdomen is soft nontender nondistended positive bowel sounds no hepatosplenomegaly Extremities no edema lower extremities. Right wrist incision site clean dry and intact. No drainage no tenderness sutures are in place. Area of PICC line no drainage noted no redness. No swelling. Neuro alert and orientated to 3 Results CBC & Chem 7: 08/31/16 12:33 08/31/16 12:33 Labs: Abnormal Lab Results - Last 24 Hours (Table) 08/31/16 08/31/16 08/31/16 Range/Units 12:30 12:33 12:33 Monocytes # 1.1 H (0-1.0) k/uL Carbon Dioxide 21 L (22-30) mmol/L Creatinine 0.60 L (0.66-1.25) mg/dL AST 60 H (17-59) U/L ALT 80 H (21-72) U/L Urine Protein Trace H (Negative) Urine Ketones Trace H (Negative) Urine Blood Trace H (Negative) Amorphous Sediment Rare H (None) /hpf Urine Mucus Rare H (None) /hpf Thrombosis Risk Factor Assmnt - Choose All That Apply Any of the Below Risk Factors Present?: Yes Each Factor Represents 1 point: Obesity (BMI >25) Other Risk Factors: No Other congenital or acquired thrombophilia - If yes, enter type in comment: No Thrombosis Risk Factor Assessment Total Risk Factor Score: 1 Thrombosis Risk Factor Assessment Level: Low Risk Assessment and Plan Plan: 1. Sepsis present on admission: Temp of 101.6 and heart rate 121. Patient has known right wrist osteomyelitis and had been receiving IV antibiotics through PICC line. Possible source of infection is PICC line. This has been removed and cultured. Blood cultures and urine culture pending. Infectious disease has been consulted. Started on IV Zosyn and IV vancomycin. His previous wound cultures from July showed MSSA 2. Mildly elevated LFTs: No new abdominal pain. Patient reports have a chronically elevated LFTs. And he is supposed to have further workup done outpatient. 3. History of Crohn's had been on Remicade. Off of Remicade during treatment of his osteomyelitis 4. 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 Butterfield and on IV antibiotics 5. Nicotine dependence: Patient spoke about 2 cigarettes a day. He is working on quitting. Discussed smoking cessation for over 3 minutes. Refusing nicotine patch GI prophylaxis Pepcid and DVT prophylaxis subcu heparin Time with Patient: Greater than 30 (Greater than 50% of the total time spent in counseling and coordination of care.I performed an examination of the patient and discussed their management with the physician Last Model Maker. I have reviewed the Physician Last Model Maker's notes and agree with the documented findings and plan of care)
[2016-08-31] MEDS: SODIUM CHLORIDE 0.9% 1,000 ML IV SCH (15:31)
[2016-08-31] MEDS ORDERED: VANCOMYCIN 1,750 MG in SODIUM CHLORIDE 0.9% 250 ML IVPB ONE (18:00)
[2016-08-31] MEDS: ETODOLAC 200 MG CAPSULE PO SCH (21:05)
[2016-08-31] MEDS: HEPARIN SODIUM,PORCINE 5,000 UNIT/ML 1 ML VIAL SQ SCH (21:05)
[2016-08-31] MEDS: FAMOTIDINE 20 MG TAB PO SCH (21:05)
[2016-08-31] MEDS: PIPERACILLIN-TAZOBACTAM 3.375 GM in DEXTROSE/WATER 1 50ML.BAG IVPB SCH (21:05)
[2016-08-31] MEDS: IBUPROFEN 400 MG TAB PO PRN (22:13)
[2016-08-31] MEDS: HYDROcodone/APAP 5-325MG 1 EACH TAB PO PRN (22:15)
[2016-09-01] MEDS: VANCOMYCIN 1,500 MG in SODIUM CHLORIDE 0.9% 250 ML IVPB SCH ×3 (02:24→18:23)
[2016-09-01] MEDS: SODIUM CHLORIDE 0.9% 1,000 ML IV SCH ×2 (05:00→14:54)
[2016-09-01] MEDS: PIPERACILLIN-TAZOBACTAM 3.375 GM in DEXTROSE/WATER 1 50ML.BAG IVPB SCH ×3 (05:54→21:45)
[2016-09-01] MEDS: FAMOTIDINE 20 MG TAB PO SCH ×2 (09:17→20:01)
[2016-09-01] MEDS: ETODOLAC 200 MG CAPSULE PO SCH (09:17)
[2016-09-01] MEDS: IBUPROFEN 400 MG TAB PO PRN (09:17)
[2016-09-01] MEDS: HEPARIN SODIUM,PORCINE 5,000 UNIT/ML 1 ML VIAL SQ SCH ×2 (09:17→20:01)
[2016-09-01 09:34] LABS: Basophils % (A) 0 %; CH 27.1; CHCM 31.5; Eosinophils # (A) 0.3 k/uL (0-0.7); Eosinophils % (A) 4 %; HCT 37.2 % (39.0-53.0); HDW 3.06; HGB 11.7 gm/dL (13.0-17.5); Hypochromasia Slight; Luc # (Auto) 0.29; Luc % (Auto) 4; Lymphocytes # (A) 1.1 k/uL (1.0-4.8); Lymphocytes % (A) 14 %; MCH 27.2 pg (25.0-35.0); MCHC 31.6 g/dL (31.0-37.0); MCV 86.2 fL (80.0-100.0); Mean Platelet Volume 6.5; Monocytes # (A) 0.9 k/uL (0-1.0); Monocytes % (A) 13 %; Neutrophils # (A) 4.8 k/uL (1.3-7.7); Neutrophils % (A) 65 %; RBC 4.31 m/uL (4.30-5.90); WBC 7.5 k/uL (3.8-10.6); WBC (Perox) 7.57
[2016-09-01 10:02] LABS: ALT 69 U/L (21-72); AST 51 U/L (17-59); Alkaline Phosphatase 62 U/L (38-126); Anion Gap 10 mmol/L; Blood Urea Nitrogen 11 mg/dL (9-20); Calcium 8.7 mg/dL (8.4-10.2); Carbon Dioxide 21 mmol/L (22-30); Chloride 111 mmol/L (98-107); Glucose 107 mg/dL (74-99); Non-African American GFR(MDRD) >60 (>60 ml/min/1.73 sqM); Potassium 4.2 mmol/L (3.5-5.1); Sodium 142 mmol/L (137-145); Total Bilirubin 0.5 mg/dL (0.2-1.3); Total Protein 6.3 g/dL (6.3-8.2)
[2016-09-01] MEDS: KETOROLAC 30 MG/ML 1 ML VIAL IVP SCH ×3 (10:47→23:01)
[2016-09-01 11:53] VITALS: BMI 34.0
--- NOTE | 2016-09-01 13:28 | P.PN ---
Subjective Patient presented with evidence of sepsis with fever and tachycardia. Exact source is unclear. Cultures have been obtained. PICC line removed. Infectious disease is following. Patient currently on Zosyn and vancomycin. Patient reporting having a lot of loose stools and cramping in his abdomen. He feels that his Crohn's is flaring up. Denies any blood in the stools. Objective - Vital Signs Vital signs: Vital Signs Temp 100.3 F H 09/01/16 09:20 Pulse 62 09/01/16 07:00 Resp 16 09/01/16 07:00 BP 111/68 09/01/16 07:00 Pulse Ox 97 09/01/16 07:00 Intake & Output 08/31/16 09/01/16 09/01/16 18:59 06:59 18:59 Intake Total 1100 Balance 1100 Weight 87.09 kg 87.09 kg Intake: IV 800 Sodium Chloride 0.9% 1, 800 000 ml @ 100 mls/hr IV . Q10H [facility] Rx#:[id number] Intake, IV Titration 300 Amount Piperacillin-Tazobactam 3 50 .375 gm In Dextrose/Water 1 50ml.bag @ 12.5 mls/hr IVPB Q8H [facility] Rx#: [id number] Vancomycin 1,500 mg In 250 Sodium Chloride 0.9% 250 ml @ 125 mls/hr IVPB Q8H [facility] Rx#:[id number] Other: # Voids 3 1 - Exam Head normocephalic Neck supple Lungs clear to auscultation bilaterally no wheezing or crackles Heart regular rate and rhythm S1-S2, no rub or gallop Abdomen is soft nondistended diffuse tenderness positive bowel sounds Extremities no edema Neuro alert and orientated to 3 - Labs CBC & Chem 7: 09/01/16 08:59 09/01/16 08:59 Labs: Abnormal Lab Results - Last 24 Hours (Table) 09/01/16 09/01/16 Range/Units 08:59 08:59 Hgb 11.7 L (13.0-17.5) gm/dL Hct 37.2 L (39.0-53.0) % Chloride 111 H (98-107) mmol/L Carbon Dioxide 21 L (22-30) mmol/L Creatinine 0.59 L (0.66-1.25) mg/dL Glucose 107 H (74-99) mg/dL Albumin 3.3 L (3.5-5.0) g/dL Microbiology - Last 24 Hours (Table) 08/31/16 14:42 Catheter Tip Culture - Preliminary Picc Line 08/31/16 12:30 Urine Culture - Preliminary Urine,Voided Assessment and Plan Plan: 1. Sepsis present on admission: Temp of 101.6 and heart rate 121. Exact source of infection unclear. Patient is having a lot of loose stools. We'll repeat a stool for C. diff. Infectious disease following. Awaiting culture results. Patient has known right wrist osteomyelitis and had been receiving IV antibiotics through PICC line. Possible source of infection is PICC line. This has been removed and cultured. Blood cultures and urine culture pending. Infectious disease has been consulted. Started on IV Zosyn and IV vancomycin. His previous wound cultures from July showed MSSA. 2. Mildly elevated LFTs: No new abdominal pain. Patient reports have a chronically elevated LFTs. And he is supposed to have further workup done outpatient. LFTs this morning are within normal range 3. History of Crohn's had been on Remicade. Off of Remicade during treatment of his osteomyelitis 4. 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 Butterfield and on IV antibiotics 5. Nicotine dependence: Patient spoke about 2 cigarettes a day. He is working on quitting. Discussed smoking cessation for over 3 minutes. Refusing nicotine patch GI prophylaxis Pepcid and DVT prophylaxis subcu heparin
[2016-09-01 17:22] LABS: Glucose,Whole Blood 82 mg/dL (75-99)
[2016-09-01] MEDS: HYDROcodone/APAP 5-325MG 1 EACH TAB PO PRN (20:00)
--- NOTE | 2016-09-01 22:59 | P.CONS ---
History of Present Illness - Reason for Consult Consult date: 09/01/16 - Chief Complaint fever - History of Present Illness 31-year-old male with a long-standing history of Crohn's disease. Routinely has been treated with remicade which is on hold due to his recent MSSA infection of his right arm. He has been treated with outpatient intravenous antibiotic therapy with cefazolin. Was doing well. Within had the onset of fever to 102. It is not rapidly warren. He was evaluated because of his diarrhea testing for C. diff, blood cultures and routine blood work performed. The C. diff has come back as negative. Blood cultures are negative so far. White count is normal with no other significant chemical abnormalities. The patient became concerned that his PICC line was infected. He presented to the emergency center this PICC line actually was removed upon his request. The outpatient data is reviewed he has now 6 weeks and 2 days of his outpatient intravenous antibiotic therapy. Fortunately his wrist is doing quite well. He is having no difficulties with open wound or drainage. He is anxious to restart his Remicade to make himself feel better from his colitis point of view. He is having progressive and chronic abdominal pain.he has been having some ongoing fever. Review of Systems positive for fever without chills or HEENT:Denies headache or acute visual change. Denies sinus or mouth discomforts. Denies neck stiffness or pain. Denies significant oral cavity pain. Denies difficulty on swallowing. Lungs: Denies significant shortness of breath, cough, sputum production, or hemoptysis. Cardiovascular: Denies significant shortness of breath, chest pain, chest wall pain, orthopnea, dyspnea on exertion, syncope Gastrointestinal:chronic abdominal pain associated whas loose stools as noted for C. diff negative. Musculoskeletal: denies significant myalgias or arthralgias. No new joint swelling. Denies new back pain. Skin: Denies new rash or lesions. No new ulcers or wounds are related.. Neuro: Denies headache or visual change. Denies any new onset weakness or difficulty with ambulation. Denies falls or seizures. Psychiatric:Denies anxiety or depression. Endocrine: Denies significant fatigue, denies significant weight loss or weight gain. Past Medical History Past Medical History: Skin Disorder Additional Past Medical History / Comment(s): 04/2016 R distal radius fracture with surgery/pinning-pins removed-then infection, (osteomyelitis), and had I&Ds , picc line and IV ABX. Other hx: chrons-diagnosed at age 9, colostomy 2001, PICC LINES in past with infection and sepsis per pt, psoriasis, atopic dermatitis, cellulitis, elevated liver enzymes. History of Any Multi-Drug Resistant Organisms: None Reported Year Discovered:: 2006(PER PT HAD IT AROUND 10 YEARS AGO) MDRO Source:: SKIN ABCESS Past Surgical History: Bowel Resection Additional Past Surgical History / Comment(s): 04/2016 ORIF distal radius with pinning-since removed, R wrist surgical site infection with I&D/picc line- current one placed 07/07/16 and removed 08/31/16 in ER, 2 other I&Ds of R wrist in [place] by Dr. Valle, previous picc lines, pt states that he has no large intestine(chron's), scrotal surgery d/t torsion, colonoscopies. Past Anesthesia/Blood Transfusion Reactions: No Reported Reaction Additional Past Anesthesia/Blood Transfusion Reaction / Comm: HAS RECIEVED PLATELETS IN PAST. Past Psychological History: No Psychological Hx Reported Additional Psychological History / Comment(s): Single. 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 Is not an alcohol user. He over is a tobacco smoker of less than one pack per day. Denies recreational drug use. Does have a girlfriend. No animals in the home. No experience. No extensive travels. Smoking Status: Light tobacco smoker Past Alcohol Use History: Occasional Additional Past Alcohol Use History / Comment(s): started smoking at age 19, smoked 1/2 ppd and now has had 2 cigarettes in the past month. occ alcohol. Past Drug Use History: None Reported - Past Family History Father Family Medical History: Cancer Additional Family Medical History / Comment(s): skin cancer. worked as corporate director of human resources and was shot in head but survived Mother Family Medical History: No Reported History Additional Family Medical History / Comment(s): skin cancer Medications and Allergies Home Medications and Allergies Comment(s): Current Medications Hydrocodone Bitart/Acetaminophen ([place] 5-325) 1 each PO TID PRN PRN Reason: Pain Last Admin: 09/01/16 20:00 Dose: 1 each Famotidine (Pepcid) 20 mg PO BID [facility] Last Admin: 09/01/16 20:01 Dose: 20 mg Heparin Sodium (Porcine) (Heparin) 5,000 unit SQ Q12HR [facility] Last Admin: 09/01/16 20:01 Dose: Not Given Sodium Chloride (Saline 0.9%) 1,000 mls @ 80 mls/hr IV .[id number] [facility] Last Admin: 09/01/16 14:54 Dose: 80 mls/hr Piperacillin/Tazobactam/ (Dextrose 3.375 gm/ IV Solution) 50 mls @ 12.5 mls/hr IVPB Q8H [facility] Last Admin: 09/01/16 21:45 Dose: 12.5 mls/hr Vancomycin HCl 1,500 mg/ (Sodium Chloride) 250 mls @ 125 mls/hr IVPB Q8H [facility] Last Admin: 09/01/16 18:23 Dose: 125 mls/hr Ketorolac Tromethamine (Toradol) 30 mg IVP Q6HR [facility] Stop: 09/05/16 09:27 Last Admin: 09/01/16 16:51 Dose: 30 mg Miscellaneous Information (Vancomycin Trough Due) 1 each MISCELLANE ONCE ONE Stop: 09/02/16 09:01 Naloxone HCl (Narcan) 0.2 mg IV Q2M PRN PRN Reason: Opioid Reversal Home Medications Medication Instructions Recorded Confirmed Type Omeprazole [PriLOSEC] 20 mg PO DAILY 06/09/14 08/31/16 History inFLIXimab [Remicade] 1 injection SQ Q40D 06/09/14 08/31/16 History Diclofenac Sodium 50 mg PO BID 08/31/16 08/31/16 History Hydrocodone/Acetaminophen [[place] 1 tab PO TID PRN 08/31/16 08/31/16 History 5-325 Tablet] Allergies Allergy/AdvReac Type Severity Reaction Status Date / Time No Known Allergies Allergy Verified 08/31/16 13:27 Physical Exam Vitals: Vital Signs Temp Pulse Resp BP Pulse Ox 09/01/16 15:00 97.6 F 77 16 106/69 96 09/01/16 09:20 100.3 F H 09/01/16 07:00 98.8 F 62 16 111/68 97 09/01/16 00:00 98.9 F 08/31/16 23:00 100.8 F H 91 20 124/72 97 Intake and Output 09/01/16 09/01/16 09/01/16 06:59 14:59 22:59 Intake Total 1100 Balance 1100 Intake: IV 800 Sodium Chloride 0.9% 1, 800 000 ml @ 100 mls/hr IV . Q10H [facility] Rx#:[id number] Intake, IV Titration 300 Amount Piperacillin-Tazobactam 3 50 .375 gm In Dextrose/Water 1 50ml.bag @ 12.5 mls/hr IVPB Q8H [facility] Rx#: [id number] Vancomycin 1,500 mg In 250 Sodium Chloride 0.9% 250 ml @ 125 mls/hr IVPB Q8H [facility] Rx#:[id number] Other: # Voids 3 1 Weight 87.09 kg Patient Weight 09/02/16 06:59 Weight 87.09 kg 31-year-old male who has the historyof chronic steroid use for his Crohn's disease Currently is not acutely ill. HEENT: Anicteric conjunctiva are pink and moist nasal mucosa grossly intact without significant lesions, there is no thrush. Neck: The neck is supple without significant lymphadenopathy or thyromegaly. Lungs: Good bilateral air entry without significant crackles or wheezing. There is no significant bronchial sounds. There is no egophony or dullness. Heart: Regular rate and rhythm with an audible S1-S2, no S3 no S4. There is no significant murmur click or rub, PMI was nondisplaced. Abdomen: positive bowel sounds some diffuse te Abdominal wall is not rigid. No flank tenderness. Extremities: The upper extremities have excellent pulses they are symmetric, no significant petechiae or telangiectasia. No splinter hemorrhages were noted. The lower extremities are free from significant edema. The peripheral pulses were 2+ and symmetric.PICC removal site is without eryth Neuro: Awake alert oriented to person place and time. There are no acute new gross focal sensory motor deficits. Results CBC & Chem 7: 09/01/16 08:59 09/01/16 08:59 Labs: Abnormal Lab Results - Last 24 Hours (Table) 09/01/16 09/01/16 Range/Units 08:59 08:59 Hgb 11.7 L (13.0-17.5) gm/dL Hct 37.2 L (39.0-53.0) % Chloride 111 H (98-107) mmol/L Carbon Dioxide 21 L (22-30) mmol/L Creatinine 0.59 L (0.66-1.25) mg/dL Glucose 107 H (74-99) mg/dL Albumin 3.3 L (3.5-5.0) g/dL Microbiology - Last 24 Hours (Table) 08/31/16 16:59 Blood Culture - Preliminary Blood No Growth after 24 hours 08/31/16 12:30 Urine Culture - Final Urine,Voided 09/01/16 10:00 Stool Culture - Preliminary Stool 08/31/16 12:33 Blood Culture - Preliminary Blood No Growth after 24 hours 08/31/16 14:42 Catheter Tip Culture - Preliminary Picc Line Laboratory Results WBC 7.5 k/uL (3.8-10.6) 09/01/16 08:59 RBC 4.31 m/uL (4.30-5.90) 09/01/16 08:59 Hgb 11.7 gm/dL (13.0-17.5) L 09/01/16 08:59 Hct 37.2 % (39.0-53.0) L 09/01/16 08:59 MCV 86.2 fL (80.0-100.0) 09/01/16 08:59 MCH 27.2 pg (25.0-35.0) 09/01/16 08:59 MCHC 31.6 g/dL (31.0-37.0) 09/01/16 08:59 RDW 13.0 % (11.5-15.5) 09/01/16 08:59 Plt Count 187 k/uL (150-450) 09/01/16 08:59 Neutrophils % 65 % 09/01/16 08:59 Lymphocytes % 14 % 09/01/16 08:59 Monocytes % 13 % 09/01/16 08:59 Eosinophils % 4 % 09/01/16 08:59 Basophils % 0 % 09/01/16 08:59 Neutrophils # 4.8 k/uL (1.3-7.7) 09/01/16 08:59 Lymphocytes # 1.1 k/uL (1.0-4.8) 09/01/16 08:59 Monocytes # 0.9 k/uL (0-1.0) 09/01/16 08:59 Eosinophils # 0.3 k/uL (0-0.7) 09/01/16 08:59 Basophils # 0.0 k/uL (0-0.2) 09/01/16 08:59 Hypochromasia Slight 09/01/16 08:59 Sodium 142 mmol/L (137-145) 09/01/16 08:59 Potassium 4.2 mmol/L (3.5-5.1) 09/01/16 08:59 Chloride 111 mmol/L (98-107) H 09/01/16 08:59 Carbon Dioxide 21 mmol/L (22-30) L 09/01/16 08:59 Anion Gap 10 mmol/L 09/01/16 08:59 BUN 11 mg/dL (9-20) 09/01/16 08:59 Creatinine 0.59 mg/dL (0.66-1.25) L 09/01/16 08:59 Est GFR (MDRD) Af Amer >60 (>60 ml/min/1.73 sqM) 09/01/16 08:59 Est GFR (MDRD) Non-Af >60 (>60 ml/min/1.73 sqM) 09/01/16 08:59 Glucose 107 mg/dL (74-99) H 09/01/16 08:59 POC Glucose (mg/dL) 82 mg/dL (75-99) 09/01/16 17:20 POC Glu Telegraph Editor ID 09/01/16 17:20 Plasma Lactic Acid Fritz 0.9 mmol/L (0.7-2.0) 08/31/16 12:33 Calcium 8.7 mg/dL (8.4-10.2) 09/01/16 08:59 Total Bilirubin 0.5 mg/dL (0.2-1.3) 09/01/16 08:59 AST 51 U/L (17-59) 09/01/16 08:59 ALT 69 U/L (21-72) 09/01/16 08:59 Alkaline Phosphatase 62 U/L (38-126) 09/01/16 08:59 Total Protein 6.3 g/dL (6.3-8.2) 09/01/16 08:59 Albumin 3.3 g/dL (3.5-5.0) L 09/01/16 08:59 Urine Color Dark Yellow 08/31/16 12:30 Urine Appearance Clear (Clear) 08/31/16 12:30 Urine pH 5.5 (5.0-8.0) 08/31/16 12:30 Ur Specific [place] 1.023 (1.001-1.035) 08/31/16 12:30 Urine Protein Trace (Negative) H 08/31/16 12:30 Urine Glucose (UA) Negative (Negative) 08/31/16 12:30 Urine Ketones Trace (Negative) H 08/31/16 12:30 Urine Blood Trace (Negative) H 08/31/16 12:30 Urine Nitrite Negative (Negative) 08/31/16 12:30 Urine Bilirubin Negative (Negative) 08/31/16 12:30 Urine Urobilinogen <2.0 mg/dL (<2.0) 08/31/16 12:30 Ur Leukocyte Esterase Negative (Negative) 08/31/16 12:30 Urine RBC <1 /hpf (0-5) 08/31/16 12:30 Urine WBC 1 /hpf (0-5) 08/31/16 12:30 Amorphous Sediment Rare /hpf (None) H 08/31/16 12:30 Urine Mucus Rare /hpf (None) H 08/31/16 12:30 C. difficile (EIA) Intrp Negative (Negative) 09/01/16 16:50 Microbiology 08/31/16 16:59 Blood Blood Culture - Preliminary No Growth after 24 hours 08/31/16 12:30 Urine,Voided Urine Culture - Final 09/01/16 10:00 Stool Stool Culture - Preliminary 08/31/16 12:33 Blood Blood Culture - Preliminary No Growth after 24 hours 08/31/16 14:42 Picc Line Catheter Tip Culture - Preliminary Assessment and Plan (1) Fever Narrative/Plan: 31-year-old male who is a long-standing history of Crohn's disease and many complications. 7 the fracture to his right wrist. Multiple surgical interventions. MSSA infection was found. Is not completed just over 6 weeks of intravenous antibiotic therapy for this infection. The risks is doing very well. However now developed a fever. He presented to the emergency center. She'll have negative blood cultures at 48 hours. The catheter tip is negative at 24 hours. This does make blistering infection from his catheter very unlikely. She had no significant antecedent symptoms related to catheter was not likely a low positive predictive value. Fortunately feeling better today. Fever steroids ongoing difficulty with his Crohn's. Stool culture was requested in case this is a routine bacterial infection of the colon which may be more susceptible to. Status: Acute
[2016-09-02] MEDS: VANCOMYCIN 1,500 MG in SODIUM CHLORIDE 0.9% 250 ML IVPB SCH ×3 (02:03→21:09)
[2016-09-02] MEDS: SODIUM CHLORIDE 0.9% 1,000 ML IV SCH ×2 (03:03→16:42)
[2016-09-02] MEDS: PIPERACILLIN-TAZOBACTAM 3.375 GM in DEXTROSE/WATER 1 50ML.BAG IVPB SCH ×3 (05:54→23:29)
[2016-09-02] MEDS: KETOROLAC 30 MG/ML 1 ML VIAL IVP SCH ×4 (05:54→23:47)
[2016-09-02] MEDS: FAMOTIDINE 20 MG TAB PO SCH ×2 (07:33→21:08)
[2016-09-02] MEDS: HEPARIN SODIUM,PORCINE 5,000 UNIT/ML 1 ML VIAL SQ SCH ×2 (07:34→20:29)
--- NOTE | 2016-09-02 08:53 | P.PN ---
Subjective 31-year-old male being seen and examined this morning. Continues to report having abdominal cramping Noted the patient did have a temp of 101 at 11:00 last night. Patient states he continues to feel the same as he did when he came into the hospital. Patient states is having abdominal pain had 3 bowel movements from his ostomy. Patients being followed by infectious disease Dr. Butterfield. Blood cultures have been negative so far C. diff was also negative. Patient has a history of Crohn's disease being treated with Remicade which is on hold due to his recent MSSA infection involving the right arm. Currently has received over 6 weeks of IV antibiotic therapy for this infection Patient has sustained a fracture of his right wrist Patient's PICC line was removed in the emergency room per patient's request. Labs are pending current temp is 97.9 Objective - Vital Signs Vital signs: Vital Signs Temp 97.9 F 09/02/16 07:00 Pulse 69 09/02/16 07:00 Resp 16 09/02/16 07:00 BP 122/65 09/02/16 07:00 Pulse Ox 98 09/02/16 07:00 Intake & Output 09/01/16 09/02/16 09/02/16 18:59 06:59 18:59 Weight 87.09 kg Other: # Voids 1 1 - Exam Physical exam 31-year-old male sitting up in bed currently taking a diet continues to report feeling the same with abdominal cramping. Reports no nausea vomiting. Patient states he's concerned that his Crohn's is flaring up states he's noted no blood in the stool Lungs essentially clear adequate air movement on room air Heart S1-S2 audible and regular Abdomen soft with an ostomy patient stated he did have 3 bowel movements during the night noted no blood in stool reports no nausea or vomiting not distended patient states diffuse tenderness across the abdominal wall Extremities no edema noted - Labs CBC & Chem 7: 09/01/16 08:59 09/01/16 08:59 Labs: Abnormal Lab Results - Last 24 Hours (Table) 09/01/16 09/01/16 Range/Units 08:59 08:59 Hgb 11.7 L (13.0-17.5) gm/dL Hct 37.2 L (39.0-53.0) % Chloride 111 H (98-107) mmol/L Carbon Dioxide 21 L (22-30) mmol/L Creatinine 0.59 L (0.66-1.25) mg/dL Glucose 107 H (74-99) mg/dL Albumin 3.3 L (3.5-5.0) g/dL Microbiology - Last 24 Hours (Table) 08/31/16 16:59 Blood Culture - Preliminary Blood No Growth after 24 hours 08/31/16 12:30 Urine Culture - Final Urine,Voided 09/01/16 10:00 Stool Culture - Preliminary Stool 08/31/16 12:33 Blood Culture - Preliminary Blood No Growth after 24 hours 08/31/16 14:42 Catheter Tip Culture - Preliminary Picc Line Assessment and Plan Plan: Assessment and Plan 1. Sepsis present on admission: Temp of 101.6 and heart rate 121. Exact source of infection unclear. Patient is having a lot of loose stools. We'll repeat a stool for C. diff. Infectious disease following. Awaiting culture results. Patient has known right wrist osteomyelitis and had been receiving IV antibiotics through PICC line. Possible source of infection is PICC line. This has been removed and cultured. Blood cultures and urine culture pending. Infectious disease has been consulted. Started on IV Zosyn and IV vancomycin. His previous wound cultures from July showed MSSA. 2. Mildly elevated LFTs: No new abdominal pain. Patient reports have a chronically elevated LFTs. And he is supposed to have further workup done outpatient. LFTs this morning are within normal range 3. History of Crohn's had been on Remicade. Off of Remicade during treatment of his osteomyelitis 4. 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 Butterfield and on IV antibiotics Zosyn and vancomycin 5. Nicotine dependence: Patient spoke about 2 cigarettes a day. He is working on quitting. Discussed smoking cessation for over 3 minutes. Refusing nicotine patch GI prophylaxis Pepcid and DVT prophylaxis subcu heparin Pain control Follow-up on pending labs The above dictated assessment and findings were discussed with dr mingo Cabezas and the plan of care have been dictated as directed. La Young nurse practitioner acting as a scribe for dr aguila
[2016-09-02] MEDS ORDERED: VANCOMYCIN TROUGH DUE 1 EACH MISC MISCELLANE ONE (09:00)
[2016-09-02 09:19] LABS: Basophils % (A) 1 %; CH 27.5; CHCM 33.3; Eosinophils # (A) 0.3 k/uL (0-0.7); Eosinophils % (A) 5 %; HDW 3.26; HGB 12.3 gm/dL (13.0-17.5); Luc # (Auto) 0.28; Luc % (Auto) 4; Lymphocytes # (A) 1.5 k/uL (1.0-4.8); Lymphocytes % (A) 22 %; MCH 27.5 pg (25.0-35.0); MCHC 33.2 g/dL (31.0-37.0); MCV 82.7 fL (80.0-100.0); Mean Platelet Volume 6.5; Monocytes # (A) 0.7 k/uL (0-1.0); Monocytes % (A) 10 %; Neutrophils # (A) 3.9 k/uL (1.3-7.7); Neutrophils % (A) 59 %; RBC 4.47 m/uL (4.30-5.90); RDW 12.8 % (11.5-15.5); WBC 6.7 k/uL (3.8-10.6); WBC (Perox) 6.98
[2016-09-02 09:23] LABS: ALT 76 U/L (21-72); AST 50 U/L (17-59); Alkaline Phosphatase 63 U/L (38-126); Anion Gap 9 mmol/L; Blood Urea Nitrogen 10 mg/dL (9-20); Calcium 8.8 mg/dL (8.4-10.2); Carbon Dioxide 24 mmol/L (22-30); Chloride 111 mmol/L (98-107); Glucose 88 mg/dL (74-99); Non-African American GFR(MDRD) >60 (>60 ml/min/1.73 sqM); Sodium 144 mmol/L (137-145); Total Bilirubin 0.5 mg/dL (0.2-1.3); Total Protein 6.3 g/dL (6.3-8.2)
[2016-09-02 12:31] LABS: RBC Morphology Normal
[2016-09-02] MEDS: HYDROmorphone 1 MG/ML 1 ML SYRINGE IVP PRN ×2 (15:35→21:14)
[2016-09-02] MEDS ORDERED: ACETAMINOPHEN TAB 325 MG TAB PO PRN (18:57)
[2016-09-02 23:10] VITALS: RESP 16
[2016-09-02] MEDS: methylPREDNISolone SOD SUCCI 40 MG/ML 1 ML VIAL IV SCH (23:47)
[2016-09-03] MEDS: HYDROmorphone 1 MG/ML 1 ML SYRINGE IVP PRN ×5 (01:45→22:03)
[2016-09-03] MEDS: SODIUM CHLORIDE 0.9% 1,000 ML IV SCH ×7 (03:42→22:08)
[2016-09-03] MEDS: PIPERACILLIN-TAZOBACTAM 3.375 GM in DEXTROSE/WATER 1 50ML.BAG IVPB SCH (06:02)
[2016-09-03] MEDS: KETOROLAC 30 MG/ML 1 ML VIAL IVP SCH ×2 (06:03→11:28)
[2016-09-03] MEDS: methylPREDNISolone SOD SUCCI 40 MG/ML 1 ML VIAL IV SCH ×3 (06:03→16:54)
[2016-09-03] MEDS: HEPARIN SODIUM,PORCINE 5,000 UNIT/ML 1 ML VIAL SQ SCH ×2 (07:34→21:33)
[2016-09-03] MEDS: FAMOTIDINE 20 MG TAB PO SCH ×2 (07:34→21:33)
[2016-09-03 08:09] LABS: Basophils % (A) 0 %; CH 27.3; CHCM 33.1; Eosinophils # (A) 0.1 k/uL (0-0.7); Eosinophils % (A) 1 %; HCT 39.2 % (39.0-53.0); HDW 3.32; HGB 12.7 gm/dL (13.0-17.5); Luc # (Auto) 0.13; Luc % (Auto) 2; Lymphocytes # (A) 1.2 k/uL (1.0-4.8); Lymphocytes % (A) 16 %; MCH 26.9 pg (25.0-35.0); MCHC 32.5 g/dL (31.0-37.0); MCV 82.6 fL (80.0-100.0); Mean Platelet Volume 6.2; Monocytes # (A) 0.3 k/uL (0-1.0); Monocytes % (A) 4 %; Neutrophils # (A) 5.8 k/uL (1.3-7.7); Neutrophils % (A) 77 %; RBC 4.74 m/uL (4.30-5.90); RDW 12.7 % (11.5-15.5); WBC 7.6 k/uL (3.8-10.6); WBC (Perox) 7.91
[2016-09-03 08:25] LABS: Potassium 5.3 mmol/L (3.5-5.1); Total Bilirubin 0.6 mg/dL (0.2-1.3); Total Protein 6.7 g/dL (6.3-8.2)
--- NOTE | 2016-09-03 09:24 | P.PN ---
Subjective 31-year-old male seen and evaluated. Patient states he did have a temp last night he checked his temperature was 103 he had as family bring in his thermometer . Nursing checked the temp was 101.6. Patient states he's concerned he does not feel that this is like his past episodes of exacerbation of Crohn's disease continues to have persistent abdominal discomfort. Patient states less stooling from the ostomy currently this morning the temp is 96.3 with a white count of 7.6. Hemoglobin 12.7. The potassium was up to 5.3. The creatinine up to 1.8 patient is on IV vancomycin and Zosyn Patients being followed by infectious disease. Blood cultures have been negative. C. diff has been negative. Patient has a history of Crohn's disease has been treated with Remicade which currently is on hold due to recent MSSA infection involving the right arm. Patient had substandard fracture of his right wrist has been on IV antibiotic therapy for this infection. Patient did present to the emergency room with abdominal cramping and fever. In the emergency room the patient was asking that the PICC line be removed in which it was removed patient stated he was concerned the PICC line was a source of his infection Objective - Vital Signs Vital signs: Vital Signs Temp 96.3 F L 09/03/16 07:00 Pulse 63 09/03/16 07:00 Resp 16 09/03/16 07:00 BP 115/81 09/03/16 07:00 Pulse Ox 97 09/03/16 07:00 Intake & Output 09/02/16 09/03/16 09/03/16 18:59 06:59 18:59 Intake Total 240 Balance 240 Intake: Oral 240 Other: Voiding Method Urinal Urinal # Voids 2 2 - Exam Physical exam 31-year-old male sitting up in bed currently reports that he had a temp last night felt feverish chills with cramping continues to report feeling the same with abdominal cramping. Reports no nausea vomiting. Lungs essentially clear adequate air movement on room air Heart S1-S2 audible and regular Abdomen soft with an ostomy patient states less stooling from the ostomy noted no blood in stool reports no nausea or vomiting not distended patient states diffuse tenderness across the abdominal wall Extremities no edema noted - Labs CBC & Chem 7: 09/03/16 07:47 09/03/16 07:47 Labs: Abnormal Lab Results - Last 24 Hours (Table) 09/02/16 09/02/16 09/03/16 Range/Units 08:39 08:39 07:47 Hgb 12.3 L 12.7 L (13.0-17.5) gm/dL Hct 37.0 L (39.0-53.0) % Potassium (3.5-5.1) mmol/L Chloride 111 H (98-107) mmol/L Carbon Dioxide (22-30) mmol/L Creatinine (0.66-1.25) mg/dL Glucose (74-99) mg/dL ALT 76 H (21-72) U/L Albumin 3.4 L (3.5-5.0) g/dL 09/03/16 Range/Units 07:47 Hgb (13.0-17.5) gm/dL Hct (39.0-53.0) % Potassium 5.3 H (3.5-5.1) mmol/L Chloride 111 H (98-107) mmol/L Carbon Dioxide 21 L (22-30) mmol/L Creatinine 1.87 H (0.66-1.25) mg/dL Glucose 123 H (74-99) mg/dL ALT 83 H (21-72) U/L Albumin (3.5-5.0) g/dL Microbiology - Last 24 Hours (Table) 09/01/16 10:00 Stool Culture - Final Stool 08/31/16 16:59 Blood Culture - Preliminary Blood No Growth after 48 hours 08/31/16 14:42 Catheter Tip Culture - Final Picc Line 08/31/16 12:33 Blood Culture - Preliminary Blood No Growth after 48 hours Assessment and Plan Plan: Assessment and Plan 1. Sepsis present on admission: Temp of 101.6 and heart rate 121. Exact source of infection unclear. Patient is having a lot of loose stools. We'll repeat a stool for C. diff. Infectious disease following. Awaiting culture results. Patient has known right wrist osteomyelitis and had been receiving IV antibiotics through PICC line. Possible source of infection is PICC line. This has been removed and cultured. Blood cultures and urine culture pending. Infectious disease has been consulted. Started on IV Zosyn and IV vancomycin. His previous wound cultures from July showed MSSA. 2. Mildly elevated LFTs: No new abdominal pain. Patient reports have a chronically elevated LFTs. And he is supposed to have further workup done outpatient. LFTs this morning are within normal range 3. History of Crohn's had been on Remicade. Off of Remicade during treatment of his osteomyelitis 4. 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 Butterfield and on IV antibiotics Zosyn and vancomycin 5. Nicotine dependence: Patient spoke about 2 cigarettes a day. He is working on quitting. Discussed smoking cessation for over 3 minutes. Refusing nicotine patch GI prophylaxis Pepcid and DVT prophylaxis subcu heparin Pain control New-onset acute renal failure creatinine up to 1.8 start IV fluid at 125 an hour repeating the labs in the morning likely due to vancomycin await recommendations by infectious disease New-onset hyperkalemia potassium 5.3 febrile persist unclear etiology The above dictated assessment and findings were discussed with dr mingo Cabezas and the plan of care have been dictated as directed. La Young nurse practitioner acting as a scribe for dr aguila
[2016-09-03] MEDS: VANCOMYCIN 1,500 MG in SODIUM CHLORIDE 0.9% 250 ML IVPB SCH (10:20)
[2016-09-03] MEDS: IOHEXOL 350 MG/ML 25 ML BOTTLE (ORAL USE) PO PRN ×2 (10:33→11:28)
--- NOTE | 2016-09-03 12:01 | CT ---
EXAMINATION TYPE: CT abdomen pelvis wo con DATE OF EXAM: 09/03/2016 COMPARISON: 10/14/2014 HISTORY: Generalized abdominal pain CT DLP: 551.60 mGycm Examination of the solid and hollow viscera is limited given the lack of contrast. Contrast was utili zed. FINDINGS: LUNG BASES: No evidence for nodule. No evidence for infiltrate. Evidence of remote granulomatous dise ase. LIVER/GB: The gallbladder is unremarkable. No space-occupying hepatic lesion. PANCREAS: No pancreatic mass identified. No inflammatory process seen. SPLEEN: No evidence for splenomegaly. No intrasplenic lesions seen. The spleen measures 12.3 cm crani ocaudal dimension. ADRENALS: No adrenal nodules identified. No evidence for thickening. KIDNEYS: No evidence for renal mass. No nephrolithiasis. No hydronephrosis. BOWEL: Right lower quadrant ileostomy is noted. Total colectomy noted. No evidence of bowel obstruct ion. No inflammatory process. Lymph nodes: Multiple mesenteric lymph nodes are noted measuring up to 1.7 cm in short axis. Abdomina l aorta: Atheromatous changes seen. No evidence for aneurysm. Genital organs: No significant abnormality. Other: No significant abnormality. IMPRESSION: 1. NO EVIDENCE FOR SMALL BOWEL OBSTRUCTION. RIGHT LOWER QUADRANT ILEOSTOMY. 2. MULTIPLE ENLARGED LYMPH NODES WITHIN THE SMALL BOWEL MESENTERY MEASURING UP TO 1.7 CM OF UNCERTAIN ETIOLOGY. 3. NO ACUTE INFLAMMATORY PROCESS SEEN.
[2016-09-03] MEDS ORDERED: IV VANCOMYCIN PER PHARMACY 1 EACH MISC MISCELLANE PRN (12:25)
[2016-09-03] MEDS ORDERED: SODIUM CHLORIDE 0.9% 2,000 ML IV ONE (13:56)
[2016-09-03] MEDS ORDERED: ACETAMINOPHEN TAB 500 MG TAB PO PRN (13:58)
--- NOTE | 2016-09-03 15:11 | P.NPCON ---
History of Present Illness - Reason for Consult Consult date: 09/03/16 - Chief Complaint Fever - History of Present Illness Is a 31-year-old male's seen in consultation because of acute kidney injury likely from vancomycin toxicity. His creatinine was 0.5 on admission went up to 0.8 and then to 1.8 within 24 hours. His vancomycin trough level was 25. He was admitted because of fever and a PICC line was thought to be possible source which has been removed. He is known with Crohn's disease since age 9 and has a colostomy. He is been on Remicade. Recently in April 2016 he fell and broke his right wrist had surgery and there was infection and has been on antibiotics for a long time now. Workup of the fever has shown negative blood cultures. Urine culture is negative. His computed tomography scan shows 1.7 cm lymph node in the mesentery temperature has been normal since this morning but yesterday he had a temperature of 101.6 max. His blood pressure is somewhat low in the 105 systolic to 115 systolic range.eyes and O's are not very well documented. Patient has no suggestion of a kidney stone without any flank pain. Computed tomography scan does not show any nephrolithiasis or hydronephrosis Past Medical History Past Medical History: Skin Disorder Additional Past Medical History / Comment(s): 04/2016 R distal radius fracture with surgery/pinning-pins removed-then infection, (osteomyelitis), and had I&Ds , picc line and IV ABX. Other hx: chrons-diagnosed at age 9, colostomy 2001, PICC LINES in past with infection and sepsis per pt, psoriasis, atopic dermatitis, cellulitis, elevated liver enzymes. History of Any Multi-Drug Resistant Organisms: None Reported Date of last positivie culture/infection: 2006(PER PT HAD IT AROUND 10 YEARS AGO ) MDRO Source:: SKIN ABCESS Past Surgical History: Bowel Resection Additional Past Surgical History / Comment(s): 04/2016 ORIF distal radius with pinning-since removed, R wrist surgical site infection with I&D/picc line- current one placed 07/07/16 and removed 08/31/16 in ER, 2 other I&Ds of R wrist in [place] by Dr. Valle, previous picc lines, pt states that he has no large intestine(chron's), scrotal surgery d/t torsion, colonoscopies. Past Anesthesia/Blood Transfusion Reactions: No Reported Reaction Additional Past Anesthesia/Blood Transfusion Reaction / Comment(s): HAS RECIEVED PLATELETS IN PAST. Past Psychological History: No Psychological Hx Reported Additional Psychological History / Comment(s): Single. 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 Is not an alcohol user. He over is a tobacco smoker of less than one pack per day. Denies recreational drug use. Does have a girlfriend. No animals in the home. No experience. No extensive travels. Smoking Status: Light tobacco smoker Past Alcohol Use History: Occasional Additional Past Alcohol Use History / Comment(s): started smoking at age 19, smoked 1/2 ppd and now has had 2 cigarettes in the past month. occ alcohol. Past Drug Use History: None Reported - Past Family History Father Family Medical History: Cancer Additional Family Medical History / Comment(s): skin cancer. worked as gauge machine operator and was shot in head but survived Mother Family Medical History: No Reported History Additional Family Medical History / Comment(s): skin cancer Medications and Allergies Home Medications Medication Instructions Recorded Confirmed Type Omeprazole [PriLOSEC] 20 mg PO DAILY 06/09/14 08/31/16 History inFLIXimab [Remicade] 1 injection SQ Q40D 06/09/14 08/31/16 History Diclofenac Sodium 50 mg PO BID 08/31/16 08/31/16 History Hydrocodone/Acetaminophen [[place] 1 tab PO TID PRN 08/31/16 08/31/16 History 5-325 Tablet] Allergies Allergy/AdvReac Type Severity Reaction Status Date / Time No Known Allergies Allergy Verified 08/31/16 13:27 Physical Exam Vitals: Vital Signs Temp Pulse Resp BP Pulse Ox 09/03/16 09:27 97 F L 09/03/16 07:00 96.3 F L 63 16 115/81 97 09/03/16 01:41 97.2 F L 09/02/16 23:00 100.2 F H 95 16 105/62 95 09/02/16 20:45 101.5 F H 09/02/16 18:29 101.6 F H 09/02/16 17:16 100.8 F H Intake and Output 09/03/16 09/03/16 09/03/16 06:59 14:59 22:59 Other: Voiding Method Urinal # Voids 2 3 On examination is awake alert oriented comfortable. HEENT exam no JVP lymphadenopathy thyromegaly neck is supple no facial asymmetry Lungs clear to auscultation percussion good air entry bilaterally. Heart sounds are unremarkable for any murmur rub gallop. Abdomen soft nontender colostomy present Extremity exam reveals no edema Neurologically awake alert oriented comfortable. No focal motor Deficit Results - Lab Results Most recent lab results Calcium 9.0 mg/dL (8.4-10.2) 09/03/16 07:47 09/03/16 07:47 09/03/16 07:47 Assessment and Plan Plan: Impression. 1. Vancomycin related nephrotoxicity with creatinine going up from 0.5-1.8. Vancomycin level was 25. Urinalysis done on 08/31/2016 is rather benign Additionally an element of volume depletion from Crohn's disease possibility because of low intake. 2. History of kidney stones but computed tomography scan then here in the hospital today is unremarkable for any nephrolithiasis. There is a 1.7 cm mesenteric lymph node. 3. Mild degree of hyperkalemia and 4. Mild degree of non-gap metabolic acidosis from diarrhea and acute kidney injury Recommendation. Maintain IV fluids normal saline 150 mL an hour. If possible change vancomycin to and non-nephrotoxic substitute. TARIQ inhibitor discharged to follow-up his acute kidney injury with labs done tomorrow follow-up regarding the enlarged mesenteric lymph node of 1.7 cm.
--- NOTE | 2016-09-03 16:19 | P.PN ---
Subjective Principal diagnosis: Fever 31-year-old male with a long-standing history of Crohn's disease. Routinely has been treated with remicade which is on hold due to his recent MSSA infection of his right arm. He has been treated with outpatient intravenous antibiotic therapy with cefazolin. Was doing well. Within had the onset of fever to 102. It is not rapidly warren. He was evaluated because of his diarrhea testing for C. diff, blood cultures and routine blood work performed. The C. diff has come back as negative. Blood cultures are negative so far. White count is normal with no other significant chemical abnormalities. The patient became concerned that his PICC line was infected. He presented to the emergency center this PICC line actually was removed upon his request. The outpatient data is reviewed he has now 6 weeks and 2 days of his outpatient intravenous antibiotic therapy. Fortunately his wrist is doing quite well. He is having no difficulties with open wound or drainage. He is anxious to restart his Remicade to make himself feel better from his colitis point of view. He is having progressive and chronic abdominal pain.he has been having ongoing fever. Had fever again yesterday. Nursing document 101.6. His home thermometer documented 103. We briefly discussed that the hospital we only use verified instruments to ensure that they are accurate. The patient has father are not happy about this decision, however it is made clear that verified instruments only are used at the hospital. I also clarified that we are not discounting that he had a fever, we just rushed to 101.6. Today his BUN and creatinine are noticed to be elevated. Certainly a component of dehydration is occurring due to his increased oral intake, fever and sweats. The patient has had a short course of vancomycin during this stay, which was given with concerns for a potential superinfection from the antibiotics from the treatment for his right wrist MSSA infection. As noted the cultures are all negative and no evidence of any infection. Antibiotics have been discontinued. The patient was also receiving Toradol for his fevers. This is been discontinued, and concerns of his elevated BUN and creatinine. Objective - Vital Signs Vital signs: Vital Signs Temp 97.1 F L 09/03/16 15:00 Pulse 61 09/03/16 15:00 Resp 16 09/03/16 15:00 BP 131/85 09/03/16 15:00 Pulse Ox 96 09/03/16 15:00 Intake & Output 09/02/16 09/03/16 09/03/16 18:59 06:59 18:59 Intake Total 240 Balance 240 Intake: Oral 240 Other: Voiding Method Urinal Urinal # Voids 2 2 3 - Exam 11-year-old male who has the historyof chronic steroid use for his Crohn's disease Currently is not acutely ill. HEENT: Anicteric conjunctiva are pink and moist nasal mucosa grossly intact without significant lesions, there is no thrush. Neck: The neck is supple without significant lymphadenopathy or thyromegaly. Lungs: Good bilateral air entry without significant crackles or wheezing. There is no significant bronchial sounds. There is no egophony or dullness. Heart: Regular rate and rhythm with an audible S1-S2, no S3 no S4. There is no significant murmur click or rub, PMI was nondisplaced. Abdomen: positive bowel sounds some diffuse te Abdominal wall is not rigid. No flank tenderness. Extremities: The upper extremities have excellent pulses they are symmetric, no significant petechiae or telangiectasia. The right wrist wounds are well healed and will need suture remaoval. No splinter hemorrhages were noted. The lower extremities are free from significant edema. The peripheral pulses were 2+ and symmetric.PICC removal site is without erythema Neuro: Awake alert oriented to person place and time. There are no acute new gross focal sensory motor deficits. - Labs CBC & Chem 7: 09/03/16 07:47 09/03/16 14:43 Labs: Abnormal Lab Results - Last 24 Hours (Table) 09/03/16 09/03/16 09/03/16 Range/Units 07:47 07:47 14:43 Hgb 12.7 L (13.0-17.5) gm/dL Potassium 5.3 H (3.5-5.1) mmol/L Chloride 111 H (98-107) mmol/L Carbon Dioxide 21 L (22-30) mmol/L BUN 23 H (9-20) mg/dL Creatinine 1.87 H 2.01 H (0.66-1.25) mg/dL Glucose 123 H (74-99) mg/dL ALT 83 H (21-72) U/L Microbiology - Last 24 Hours (Table) 08/31/16 12:33 Blood Culture - Preliminary Blood No Growth after 72 hours 09/01/16 10:00 Stool Culture - Final Stool 08/31/16 16:59 Blood Culture - Preliminary Blood No Growth after 48 hours 08/31/16 14:42 Catheter Tip Culture - Final Picc Line Laboratory Results WBC 7.6 k/uL (3.8-10.6) 09/03/16 07:47 RBC 4.74 m/uL (4.30-5.90) 09/03/16 07:47 Hgb 12.7 gm/dL (13.0-17.5) L 09/03/16 07:47 Hct 39.2 % (39.0-53.0) 09/03/16 07:47 MCV 82.6 fL (80.0-100.0) 09/03/16 07:47 MCH 26.9 pg (25.0-35.0) 09/03/16 07:47 MCHC 32.5 g/dL (31.0-37.0) 09/03/16 07:47 RDW 12.7 % (11.5-15.5) 09/03/16 07:47 Plt Count 213 k/uL (150-450) 09/03/16 07:47 Neutrophils % 77 % 09/03/16 07:47 Lymphocytes % 16 % 09/03/16 07:47 Monocytes % 4 % 09/03/16 07:47 Eosinophils % 1 % 09/03/16 07:47 Basophils % 0 % 09/03/16 07:47 Neutrophils # 5.8 k/uL (1.3-7.7) 09/03/16 07:47 Lymphocytes # 1.2 k/uL (1.0-4.8) 09/03/16 07:47 Monocytes # 0.3 k/uL (0-1.0) 09/03/16 07:47 Eosinophils # 0.1 k/uL (0-0.7) 09/03/16 07:47 Basophils # 0.0 k/uL (0-0.2) 09/03/16 07:47 RBC Morphology Normal 09/02/16 08:39 Hypochromasia Slight 09/01/16 08:59 Sodium 145 mmol/L (137-145) 09/03/16 07:47 Potassium 5.3 mmol/L (3.5-5.1) H 09/03/16 07:47 Chloride 111 mmol/L (98-107) H 09/03/16 07:47 Carbon Dioxide 21 mmol/L (22-30) L 09/03/16 07:47 Anion Gap 13 mmol/L 09/03/16 07:47 BUN 23 mg/dL (9-20) H 09/03/16 14:43 Creatinine 2.01 mg/dL (0.66-1.25) H 09/03/16 14:43 Est GFR (MDRD) Af Amer 48 (>60 ml/min/1.73 sqM) 09/03/16 14:43 Est GFR (MDRD) Non-Af 39 (>60 ml/min/1.73 sqM) 09/03/16 14:43 Glucose 123 mg/dL (74-99) H 09/03/16 07:47 POC Glucose (mg/dL) 82 mg/dL (75-99) 09/01/16 17:20 POC Glu Business Support Manager ID 09/01/16 17:20 Plasma Lactic Acid Fritz 0.9 mmol/L (0.7-2.0) 08/31/16 12:33 Calcium 9.0 mg/dL (8.4-10.2) 09/03/16 07:47 Total Bilirubin 0.6 mg/dL (0.2-1.3) 09/03/16 07:47 AST 49 U/L (17-59) 09/03/16 07:47 ALT 83 U/L (21-72) H 09/03/16 07:47 Alkaline Phosphatase 64 U/L (38-126) 09/03/16 07:47 Total Protein 6.7 g/dL (6.3-8.2) 09/03/16 07:47 Albumin 3.6 g/dL (3.5-5.0) 09/03/16 07:47 Urine Color Dark Yellow 08/31/16 12:30 Urine Appearance Clear (Clear) 08/31/16 12:30 Urine pH 5.5 (5.0-8.0) 08/31/16 12:30 Ur Specific [place] 1.023 (1.001-1.035) 08/31/16 12:30 Urine Protein Trace (Negative) H 08/31/16 12:30 Urine Glucose (UA) Negative (Negative) 08/31/16 12:30 Urine Ketones Trace (Negative) H 08/31/16 12:30 Urine Blood Trace (Negative) H 08/31/16 12:30 Urine Nitrite Negative (Negative) 08/31/16 12:30 Urine Bilirubin Negative (Negative) 08/31/16 12:30 Urine Urobilinogen <2.0 mg/dL (<2.0) 08/31/16 12:30 Ur Leukocyte Esterase Negative (Negative) 08/31/16 12:30 Urine RBC <1 /hpf (0-5) 08/31/16 12:30 Urine WBC 1 /hpf (0-5) 08/31/16 12:30 Amorphous Sediment Rare /hpf (None) H 08/31/16 12:30 Urine Mucus Rare /hpf (None) H 08/31/16 12:30 Vancomycin Trough 25.7 ug/mL 09/02/16 08:39 C. difficile (EIA) Intrp Negative (Negative) 09/01/16 16:50 Microbiology 08/31/16 12:33 Blood Blood Culture - Preliminary No Growth after 72 hours 09/01/16 10:00 Stool Stool Culture - Final 08/31/16 16:59 Blood Blood Culture - Preliminary No Growth after 48 hours 08/31/16 14:42 Picc Line Catheter Tip Culture - Final 08/31/16 12:30 Urine,Voided Urine Culture - Final - Imaging and Cardiology CT scan - abdomen: report reviewed (Abnormal lymph nodes noted) Assessment and Plan (1) Fever Narrative/Plan: 31-year-old male who is a long-standing history of Crohn's disease and many complications. 7 the fracture to his right wrist. Multiple surgical interventions. MSSA infection was found. Is not completed just over 6 weeks of intravenous antibiotic therapy for this infection. The risks is doing very well. However now developed a fever. He presented to the emergency center. He has have negative blood cultures at 48 hours. The catheter tip is negative at 48 hours and final. This does make infection from his catheter very unlikely. he had no significant antecedent symptoms related to catheter was likely a low positive predictive value for cath infection. Fortunately feeling better today. Stool culture was negative. The patient did have ongoing fever and with this a short burst of steroids has been initiated because of his untreated Crohn's disease. Concerns at the Crohn' s as etiology of his fever. He's had a computed tomography scan of his abdomen and pelvis. He is noted to have evidence of significant lymphadenopathy that is new from the prior computed tomography scan of last year. The patient is receiving Remicade. Constantly he is at a risk for underlying infection, and concerns of malignancy related to his treatment. Also suggest that he is referred back to his labor relations teacher. Is treating him. In their decision for biopsy can be made. Patient may need transfer to that facility. Importantly today his BUN and creatinine are elevated. He appears to be dehydrated. Fluid boluses given. He received a few doses of vancomycin therapy , consequently it is highly unlikely that vancomycin was a cause of his renal insufficiency. However dehydration coupled with his medications and Toradol certainly could be factors. As noted the Toradol was discontinued and he is receiving fluid resuscitation. The creatinine to be checked again. Information is related to the primary service as for potential need for transfer to his labor relations teacher given the abnormalities on his computed tomography scan. Status: Acute
[2016-09-03] MEDS: HYDROcodone/APAP 5-325MG 1 EACH TAB PO PRN (16:54)
[2016-09-03] MEDS: ONDANSETRON 4 MG/2 ML VIAL IVP PRN (18:06)
[2016-09-03 21:03] LABS: Calcium 8.4 mg/dL (8.4-10.2); Potassium 4.8 mmol/L (3.5-5.1)
[2016-09-03] MEDS ORDERED: VANCOMYCIN 1,500 MG in SODIUM CHLORIDE 0.9% 250 ML IVPB SCH (22:00)
[2016-09-04] MEDS: methylPREDNISolone SOD SUCCI 40 MG/ML 1 ML VIAL IV SCH ×2 (00:23→05:55)
[2016-09-04] MEDS: SODIUM CHLORIDE 0.9% 1,000 ML IV SCH ×5 (00:23→11:40)
[2016-09-04] MEDS: ONDANSETRON 4 MG/2 ML VIAL IVP PRN ×2 (02:41→08:55)
[2016-09-04] MEDS: HYDROmorphone 1 MG/ML 1 ML SYRINGE IVP PRN ×2 (02:42→08:48)
[2016-09-04 07:47] VITALS: BP 115/75; PULSE 64; TEMP 97.1
[2016-09-04 07:59] LABS: Basophils % (A) 0 %; CH 27.2; CHCM 31.9; Eosinophils % (A) 0 %; HDW 3.08; HGB 10.8 gm/dL (13.0-17.5); Hypochromasia Slight; Luc # (Auto) 0.14; Luc % (Auto) 2; Lymphocytes # (A) 1.1 k/uL (1.0-4.8); Lymphocytes % (A) 14 %; MCHC 32.7 g/dL (31.0-37.0); MCV 85.5 fL (80.0-100.0); Mean Platelet Volume 6.8; Monocytes # (A) 0.6 k/uL (0-1.0); Monocytes % (A) 8 %; Neutrophils # (A) 6.1 k/uL (1.3-7.7); Neutrophils % (A) 76 %; RBC 3.86 m/uL (4.30-5.90); RDW 13.2 % (11.5-15.5); WBC 7.9 k/uL (3.8-10.6)
[2016-09-04] MEDS: HEPARIN SODIUM,PORCINE 5,000 UNIT/ML 1 ML VIAL SQ SCH (08:47)
[2016-09-04] MEDS: FAMOTIDINE 20 MG TAB PO SCH (08:47)
[2016-09-04 09:06] LABS: Calcium 7.8 mg/dL (8.4-10.2); Potassium 4.7 mmol/L (3.5-5.1); Total Bilirubin 0.3 mg/dL (0.2-1.3); Total Protein 5.9 g/dL (6.3-8.2)
--- NOTE | 2016-09-04 12:02 | P.DS ---
Providers Date of admission: 08/31/16 14:01 Expected date of discharge: 09/04/16 Attending physician: Joni Varma Consults: 08/31/16 14:19 Consult Physician Routine Consulting Provider: James Butterfield Consult Reason/Comments: Osteomyelitis right wrist, fever with PICC line Do you want consulting provider notified?: Yes 09/03/16 10:00 Consult Physician Routine Consulting Provider: Jahaira Bruner Consult Reason/Comments: acute renal failure Do you want consulting provider notified?: Yes 09/03/16 10:25 Consult Physician Routine Consulting Provider: Megan Carnes Consult Reason/Comments: abdominal pain chrohns Do you want consulting provider notified?: Yes Primary care physician: Lizzie Heck Hospital Course: Discharge diagnosis 1. Sepsis present on admission: Temp of 101.6 and heart rate 121. Possibly related to Crohn's exacerbation. Blood cultures, PICC line tip culture all negative. Stool for C. diff negative. Urine culture negative. Infectious disease recommends no further antibiotics. 2. Mildly elevated LFTs: No new abdominal pain. Patient reports have a chronically elevated LFTs. And he is supposed to have further workup done outpatient. LFTs this morning are within normal range 3. History of Crohn's had been on Remicade. Off of Remicade during treatment of his osteomyelitis 4. 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 Butterfield . Blood cultures are negative. Infectious disease is not recommending any further antibiotics. 5. Nicotine dependence: Patient spoke about 2 cigarettes a day. He is working on quitting. Discussed smoking cessation for over 3 minutes. Refusing nicotine patch 6. Acute renal failure likely secondary to vancomycin nephrotoxicity as well as volume depletion from his Crohn's disease with diarrhea and low intake of food and fluids 7. Hyperkalemia likely related to the acute renal failure 8. Crohn's exacerbation Hospital course This is a 31-year-old male, patient of Dr. Hathaway. He has a known past medical history of Crohn's disease was diagnosed age 9 and required a colostomy placement in 2001. Patient also had been on Remicade. But since his infection patient has not been on the Remicade. Patient has osteomyelitis in the right wrist. He fell back in April and fractured the radius his right wrist. He required pinning in [place] [address] Julien. He developed infection in that right wrist an MRI of the wrist had shown osteomyelitis. Patient was hospitalized in 07/17/2016 at [facility] required irrigation and drainage. Wound Cultures grew MSSA. He was discharged with Kefzol 2000 g IV every 8 hours. Continued to have problems with that wrist. And this went to see an orthopedic surgeon in [facility] in July 2016. He required again to irrigation and debridements. And has been maintained on the IV Kefzol since then. He is followed by Dr. Butterfield. Patient reports over the last 5 days he's noticed some tenderness at the PICC line site and he started to have low-grade fevers. Today he was having higher grade fevers became concerned and presented to the emergency room. In the emergency room he had a temp of 101.6 heart rate of 121. White count was only 10.4 and lactic acid normal at 0.9. Sepsis protocol was placed to started on IV fluids and IV Zosyn. Infectious disease was consulted and they added IV vancomycin. PICC line was removed in the ER and tip was sent for culture. Blood cultures and urine culture obtained. Chest x- rays negative. Blood cultures and PICC line tip culture were negative. Urine culture negative. Patient was followed by infectious disease the recommending no further antibiotic treatment required for the osteomyelitis. His current sepsis picture was likely related to his Crohn's exacerbation. He was started on IV steroids over the weekend. A computed tomography scan of the abdomen and pelvis was done showing no evidence for small bowel obstruction. Multiple enlarged lymph nodes within the small bowel mesentery measuring up to 1.7 cm of uncertain etiology. No acute inflammatory process seen. Patient has been on Remicade for his Crohn's exacerbation. The Remicade had been on hold due to his acute infection with the osteomyelitis in the right wrist. He has now completed treatment for that right wrist os myelitis. But there are concerns with the enlarged lymph nodes and being on that Remicade. Patient also went into acute renal failure during the weekend likely related to volume depletion from his Crohn's poor oral intake as well as being on the vancomycin. Creatinine at discharge is 2.06. He was seen by nephrology given IV fluid boluses and running fluids. Nephrology had stated that it was okay for discharge since he will be going to [facility]. Patient's GI specialist is out of [facility]. Patient's father and patient want to be discharged today to follow-up with [facility] GI specialist. Patient 's father is already been in contact with the GI specialist out of [facility] and was told to bring the patient to the ER there. And they will address further treatment. Patient has been informed that his still and acute kidney injury with a creatinine of 2.06 and is still being treated for his Crohn 's exacerbation. Patient is aware of this and is going to proceed to [facility] once he is discharged from [facility]. Patient is stable for discharge. Would recommend that patient has CBC and CMP followed regularly. Also recommend that patient follows up with his GI specialist regarding the computed tomography scan findings of multiple enlarged lymph nodes within the small bowel mesentery. Please refer to chart for any further details. Patient Condition at Discharge: Stable Plan - Discharge Summary New Discharge Prescriptions: Continue Omeprazole [PriLOSEC] 20 mg PO DAILY Hydrocodone/Acetaminophen [[place] 5-325 Tablet] 1 tab PO TID PRN PRN Reason: Pain inFLIXimab [Remicade] 1 injection SQ Q40D #0 Discontinued ceFAZolin [Kefzol] 2,000 mg IVPB Q8HR #126 bag Diclofenac Sodium 50 mg PO BID Discharge Medication List Omeprazole [PriLOSEC] 20 mg PO DAILY 06/09/14 [History] Hydrocodone/Acetaminophen [[place] 5-325 Tablet] 1 tab PO TID PRN 08/31/16 [ History] inFLIXimab [Remicade] 1 injection SQ Q40D #0 09/04/16 [Rx] Follow up Appointment(s)/Referral(s): [facility], [NON-STAFF] - [facility], [REFERRING] - Lizzie Heck MD [Primary Care Provider] - 1 Week Activity/Diet/Wound Care/Special Instructions: Diet: regular Activity: as tolerated Discharge Disposition: HOME SELF-CARE
== END 2016-09-04 12:14 | disposition home health service (06) | DRG 872 ==
LOC: EC 11:42 → 4MS4W 14:01
PROVIDERS: ADMIT Internal Medicine; ATTEND Internal Medicine
DX: A41.9 Sepsis, unspecified organism (principal); N17.9 Acute kidney failure, unspecified; K50.90 Crohn's disease, unspecified, without complications; E87.5 Hyperkalemia; M86.8X4 Other osteomyelitis, hand; F17.210 Nicotine dependence, cigarettes, uncomplicated; E86.0 Dehydration; Z93.3 Colostomy status; T36.8X5A Adverse effect of other systemic antibiotics, initial encounter; B95.61 Methicillin susceptible Staphylococcus aureus infection as the cause of diseases classified elsewhere; L20.9 Atopic dermatitis, unspecified; L40.9 Psoriasis, unspecified; Z79.2 Long term (current) use of antibiotics; Z79.899 Other long term (current) drug therapy
CPT/HCPCS: 36415; 71020; 74176; 80048; 80053; 80202; 81001; 82565; 83605; 84520; 85025; 87040; 87045; 87046; 87070; 87086; 87324; 96365; 96366; 96375; 99284

== ENCOUNTER → 2018-05-31 | Outpatient (CLI) | payer BC ==
[2018-05-31 09:58] LABS: Basophils % (A) 0 %; Eosinophils # (A) 0.8 k/uL (0-0.7); Eosinophils % (A) 5 %; HCT 42.1 % (39.0-53.0); HGB 13.6 gm/dL (13.0-17.5); Lymphocytes # (A) 5.4 k/uL (1.0-4.8); Lymphocytes % (A) 31 %; MCHC 32.3 g/dL (31.0-37.0); MCV 83.3 fL (80.0-100.0); Mean Platelet Volume 6.5; Monocytes # (A) 1.1 k/uL (0-1.0); Monocytes % (A) 6 %; Neutrophils # (A) 9.6 k/uL (1.3-7.7); Neutrophils % (A) 55 %; Platelet Count 266 k/uL (150-450); RBC 5.05 m/uL (4.30-5.90); RDW 14.9 % (11.5-15.5); WBC 17.3 k/uL (3.8-10.6)
[2018-05-31 10:52] LABS: Erythrocyte Sedimentation Rate 6 mm/hr (0-15)
[2018-05-31 18:13] LABS: Albumin 3.6 g/dL (3.80-4.90); Albumin/Globulin Ratio 1.71 (1.60-3.17); Globulin 2.1 g/dL (1.6-3.3); Potassium 3.9 mmol/L (3.5-5.5); Total Bilirubin 0.3 mg/dL (0.2-1.2); Total Protein 5.7 g/dL (6.2-8.2)
[2018-05-31 18:57] LABS: Hepatitis B Surface AB- Quant 3.5 mIU/mL
[2018-05-31 18:59] LABS: C Reactive Protein 0.5 mg/dL (0.0-0.8)
== END ==
LOC: LABWHC1 09:17
PROVIDERS: ATTEND Internal Medicine
DX: K50.80 Crohn's disease of both small and large intestine without complications (principal)
CPT/HCPCS: 36415; 80053; 83993; 85025; 85652; 86140; 86480; 86704; 86706; 87340

== ENCOUNTER → 2021-04-12 | Outpatient (CLI) | payer MEDICARE ==
[2021-04-13 01:18] LABS: Basophils # (A) 0.03 X 10*3/uL (0.00-0.10); Basophils % (A) 0.3 %; Eosinophils # (A) 0.37 X 10*3/uL (0.04-0.35); Eosinophils % (A) 3.6 %; HGB 14.4 g/dL (13.0-17.0); Lymphocytes # (A) 3.85 X 10*3/uL (0.90-5.00); Lymphocytes % (A) 37.3 %; MCH 31.3 pg (27.0-32.0); MCHC 33.5 g/dL (32.0-37.0); MCV 93.5 fL (80.0-97.0); Mean Platelet Volume 9.2 fL (9.5-12.2); Monocytes # (A) 0.63 X 10*3/uL (0.20-1.00); Monocytes % (A) 6.1 %; Neutrophils # (A) 5.43 X 10*3/uL (1.80-7.70); Neutrophils % (A) 52.5 %; Platelet Count 190 X 10*3/uL (140-440); RDW 13.7 % (11.5-14.5); WBC 10.33 X 10*3/uL (4.50-10.00)
[2021-04-13 08:35] LABS: African American GFR (CKD) 153.1 (60.0-200.0); Albumin 4.5 g/dL (3.8-4.9); Albumin/Globulin Ratio 1.88 (1.60-3.17); Anion Gap 20.2 mmol/L (10.00-18.00); Calcium 9.9 mg/dL (8.7-10.3); Carbon Dioxide 16.8 mmol/L (20.0-27.5); Globulin 2.4 g/dL (1.6-3.3); Non-African American GFR(CKD) 132.1 (60.0-200.0); Potassium 4.5 mmol/L (3.5-5.5); Total Bilirubin 0.3 mg/dL (0.30-1.20); Total Protein 6.9 g/dL (6.2-8.2)
== END | disposition home or self-care (01) ==
LOC: LABWHC1 14:21
PROVIDERS: ATTEND Student in an Organized Health Care Education/Training Program
DX: L20.89 Other atopic dermatitis (principal); L73.2 Hidradenitis suppurativa
CPT/HCPCS: 36415; 80053; 85025

== ENCOUNTER 2023-01-08 06:03 | Day surgery (SDC) | payer MEDICARE ==
[2023-01-02 12:10] VITALS: BMI 34.7
[~2023-01-08 06:03] MED LIST: ACETAMINOPHEN TAB 500 MG TAB PO PRN; HEPARIN SODIUM,PORCINE/PF 5,000 UNIT/0.5 ML SYRINGE SQ PRN; Pre Op ABX Message 1 EACH MISC MISCELLANE ONE
[2023-01-08] MEDS ORDERED: DEXAMETHASONE SOD PHOSPHATE 4 MG/ML 1 ML VIAL IV ONE (06:31)
[2023-01-08] MEDS ORDERED: LIDOCAINE 1% (10MG/ML) FOR IV START INTRADERMA PRN (06:31)
[2023-01-08] MEDS ORDERED: METOCLOPRAMIDE 5 MG/ML 2 ML VIAL IVP PRN (06:31)
[2023-01-08] MEDS ORDERED: ONDANSETRON 4 MG/2 ML VIAL IVP ONE ×2 (06:31→07:21)
[2023-01-08] MEDS ORDERED: HYDROmorphone 0.5 MG/0.5 ML SYRINGE IVP PRN (06:31)
[2023-01-08] MEDS ORDERED: LACTATED RINGERS 1,000 ML IV SCH (06:31)
[2023-01-08] MEDS ORDERED: DEXAMETHASONE SOD PHOSPHATE 4 MG/ML 1 ML VIAL IVP ONE (07:20)
[2023-01-08] MEDS ORDERED: MIDAZOLAM 2 MG/2 ML VIAL ONE (07:28)
[2023-01-08] MEDS ORDERED: SUCCINYLCHOLINE CHLORIDE 200 MG/10 ML VIAL IV ONE (07:28)
[2023-01-08] MEDS ORDERED: KETOROLAC 15 MG/ML 1 ML VIAL ONE (07:28)
[2023-01-08] MEDS ORDERED: PROPOFOL 10 MG/ML 20 ML VIAL IV ONE (07:28)
[2023-01-08] MEDS ORDERED: fentaNYL (PF) 50 MCG/ML 2 ML AMP ONE (07:28)
[2023-01-08] MEDS ORDERED: SODIUM CHLORIDE 0.9% 100 ML with ceFAZolin 2,000 MG IV ONE ×2 (07:52)
[2023-01-08] MEDS ORDERED: LIDOCAINE 1%-EPI 1:100,000 50 ML VIAL SQ ONE (08:05)
[2023-01-08 08:33] VITALS: TEMP 97.3
[2023-01-08 08:48] VITALS: RESP 18
[2023-01-08 09:33] VITALS: BP 114/72; PULSE 76
--- NOTE | 2023-01-08 17:24 | P.OP ---
Date of Procedure: 01/08/23 Preoperative Diagnosis: Posterior neck lipoma Postoperative Diagnosis: Posterior neck abscess Procedure(s) Performed: Incision and drainage of abscess Anesthesia: NINA Surgeon: Ferny Sutton Estimated Blood Loss (ml): 5 Pathology: none sent Condition: stable Disposition: PACU Description of Procedure: The patient's placed on the operating table in the supine position. He received general endotracheal anesthesia. He was then placed in the lateral position. His neck was prepped and draped usual fashion. The patient had a 5 cm mass located at the base of the posterior neck. The skin was incised using a 15 blade and using left cautery subcutaneous tissue divided. The mass was entered. The mass appeared to be a abscess. Approximately 20 mL of purulent fluid was removed. The abscess cavity measured approximately 5 cm in diameter. The wound was irrigated there is no bleeding seen. The wound was then packed with wet-to-dry Kerlix. Patient top she will well. He was sent to recovery room stable condition.
== END 2023-01-08 09:44 | disposition home health service (06) ==
LOC: OR 06:03
PROVIDERS: ATTEND Surgery
DX: L02.11 Cutaneous abscess of neck (principal); D17.0 Benign lipomatous neoplasm of skin and subcutaneous tissue of head, face and neck; L40.9 Psoriasis, unspecified; M25.70 Osteophyte, unspecified joint; K21.9 Gastro-esophageal reflux disease without esophagitis; K50.90 Crohn's disease, unspecified, without complications; L20.9 Atopic dermatitis, unspecified; R16.0 Hepatomegaly, not elsewhere classified; F17.210 Nicotine dependence, cigarettes, uncomplicated; Z88.2 Allergy status to sulfonamides; Z79.899 Other long term (current) drug therapy
CPT/HCPCS: 10060; J2250; J0330; J1100; J2405; J0690; J3010; J1885; J2704; J1170; J1644

== ENCOUNTER 2024-03-26 05:20 | Emergency (ER) | payer MEDICARE ==
[2024-03-26] MEDS ORDERED: IBUPROFEN 400 MG TAB PO STA (05:29)
[2024-03-26] MEDS: SODIUM CHLORIDE 0.9% 1,000 ML IV STA (05:55)
[2024-03-26] MEDS: KETOROLAC 15 MG/ML 1 ML VIAL IVP STA (05:55)
[2024-03-26 06:00] LABS: Basophils % (A) 0 %; Eosinophils % (A) 1 %; HCT 41.2 % (39.0-53.0); HGB 14.5 gm/dL (13.0-17.5); Lymphocytes % (A) 14 %; MCH 31.2 pg (25.0-35.0); MCHC 35.2 g/dL (31.0-37.0); MCV 88.6 fL (80.0-100.0); Mean Platelet Volume 6.4; Monocytes # (A) 0.4 k/uL (0-1.0); Monocytes % (A) 5 %; Neutrophils # (A) 5.6 k/uL (1.3-7.7); Neutrophils % (A) 78 %; Platelet Count 135 k/uL (150-450); RBC 4.65 m/uL (4.30-5.90); WBC 7.1 k/uL (3.8-10.6)
--- NOTE | 2024-03-26 06:18 | ED ---
Fever HPI - General Chief Complaint: Fever Stated Complaint: Fever Time Seen by Provider: 03/26/24 06:04 Source: patient, RN notes reviewed Mode of arrival: ambulatory Limitations: no limitations - History of Present Illness Initial Comments: This is a 38-year-old male with a history of Crohn's on immunologic infusion therapy with ostomy presenting to the emergency department for chief complaint of high fever. States that over the past approximately 3 weeks he has been battling an upper respiratory infection with symptoms of nasal congestion, postnasal drip, intermittent fevers. He was recently prescribed Keflex. Patient states that earlier this morning he had a reported temperature of 105. He took Tylenol and Motrin at home for 30. He denies chest pain, shortness of breath, difficulty breathing, abdominal pain, urinary changes. - Related Data Home Medications Medication Instructions Recorded Confirmed Omeprazole [PriLOSEC] 20 mg PO BID 06/09/14 01/02/23 Hydrocodone/Acetaminophen [Ponder 1 tab PO TID PRN 08/31/16 01/02/23 5-325 Tablet] inFLIXimab [Remicade] 1 injection SQ QMONTHLY 01/02/23 01/08/23 Previous Rx's Medication Instructions Recorded Levofloxacin [Levaquin] 500 mg PO DAILY 1 Days #10 tab 01/08/23 Amoxic-Pot Clav 875-125Mg 1 tab PO Q12HR #20 tab 03/26/24 [Augmentin 875-125] Allergies Allergy/AdvReac Type Severity Reaction Status Date / Time Sulfa (Sulfonamide Allergy MENINGITIS Verified 01/08/23 06:44 Antibiotics) Review of Systems ROS Statement: Those systems with pertinent positive or pertinent negative responses have been documented in the HPI. ROS Other: All systems not noted in ROS Statement are negative. Past Medical History Past Medical History: Skin Disorder Additional Past Medical History / Comment(s): OSTEOMYELITIS, CROHNS SINCE AGE 9, PICC LINE INFECTIONS AND SEPSIS, psoriasis, atopic dermatitis, cellulitis, elevated liver enzymes. History of Any Multi-Drug Resistant Organisms: MRSA Date of last positivie culture/infection: 04/25/11 MDRO Source:: Unknown Past Surgical History: Bowel Resection, Orthopedic Surgery Additional Past Surgical History / Comment(s): ORIF distal radius with pinning- since removed, R wrist surgical site infection with I&D/picc line, 2 other I&Ds of R wrist, pt states that he has no large intestine (CROHNS), COLOSTOMY, scrotal surgery d/t torsion, colonoscopies. Past Anesthesia/Blood Transfusion Reactions: No Reported Reaction Additional Past Anesthesia/Blood Transfusion Reaction / Comment(s): HAS RECIEVED PLATELETS IN PAST. Past Psychological History: No Psychological Hx Reported Smoking Status: Current some day smoker Past Alcohol Use History: Occasional Past Drug Use History: None Reported - Past Family History Father Family Medical History: Cancer Additional Family Medical History / Comment(s): skin cancer. worked as turnaround engineer and was shot in head but survived Mother Family Medical History: No Reported History Additional Family Medical History / Comment(s): skin cancer General Exam Limitations: no limitations General appearance: alert, in no apparent distress Eye exam: Present: normal appearance, PERRL, EOMI. Absent: scleral icterus, conjunctival injection, periorbital swelling Neck exam: Present: normal inspection. Absent: tenderness, meningismus, lymphadenopathy Respiratory exam: Present: normal lung sounds bilaterally. Absent: respiratory distress, wheezes, rales, rhonchi, stridor Cardiovascular Exam: Present: regular rate, normal rhythm, normal heart sounds. Absent: systolic murmur, diastolic murmur, rubs, gallop, clicks GI/Abdominal exam: Present: soft, normal bowel sounds, other (colostomy). Absent: distended, tenderness, guarding, rebound, rigid Extremities exam: Present: normal inspection, full ROM, normal capillary refill. Absent: tenderness, pedal edema, joint swelling, calf tenderness Skin exam: Present: warm, dry, intact, normal color. Absent: rash Course Vital Signs 03/26/24 03/26/24 03/26/24 05:21 06:01 06:12 Temperature 102.8 F H 101.6 F H Pulse Rate 128 H 105 H Respiratory 22 18 Rate Blood Pressure 126/74 101/59 O2 Sat by Pulse 95 98 Oximetry 03/26/24 03/26/24 06:52 07:04 Temperature 99.0 F Pulse Rate 89 Respiratory Rate Blood Pressure O2 Sat by Pulse 99 Oximetry Medical Decision Making - Medical Decision Making Was pt. sent in by a medical professional or institution (, PA, BALANCE AND HAIRSPRING ASSEMBLER, urgent care, hospital, or residential...) When possible be specific @ -No Did you speak to anyone other than the patient for history (EMS, parent, family, police, friend...)? What history was obtained from this source @ -No Did you review nursing and triage notes (agree or disagree)? Why? @ -I reviewed and agree with nursing and triage notes Were old charts reviewed (outside hosp., previous admission, EMS record, old EKG, old radiological studies, urgent care reports/EKG's, residential records)? Report findings @ -No old charts were reviewed Differential Diagnosis (chest pain, altered mental status, abdominal pain women, abdominal pain men, vaginal bleeding, weakness, fever, dyspnea, syncope, headache, dizziness, GI bleed, back pain, seizure, CVA, palpatations, mental health, musculoskeletal)? @ -Differential Fever: Pneumonia, viral URI, endocarditis, myocarditis, pericarditis, otitis, sinusitis, peritonsillar Abscess, retropharyngeal Abscess, epiglottitis, peritonitis, appendicitis, Heaven cystitis, diverticulitis, hepatitis, colitis, UTI, PID, TOA, pyelonephritis, prostatitis, epididymitis, meningitis, encephali tis, pulmonary embolism, CVA, thyroid storm, pancreatitis, adrenal crisis, cavernous sinus thrombosis, this is not meant to be an all-inclusive list. EKG interpreted by me (3pts min.). @ -none X-rays interpreted by me (1pt min.). @ -None done CT interpreted by me (1pt min.). @ -None done U/S interpreted by me (1pt. min.). @ -None done What testing was considered but not performed or refused? (CT, X-rays, U/S, labs)? Why? @ -None What meds were considered but not given or refused? Why? @ -None Did you discuss the management of the patient with other professionals (professionals i.e. , PA, BALANCE AND HAIRSPRING ASSEMBLER, lab, RT, psych nurse, social work assistant, carbon coater machine operator, teacher, surface to air weapons officer, family independence case manager)? Give summary @ -No Was smoking cessation discussed for >3mins.? @ -No Was critical care preformed (if so, how long)? @ -No Were there social determinants of health that impacted care today? How? (Homelessness, low income, unemployed, alcoholism, drug addiction, transportation, low edu. Level, literacy, decrease access to med. care, retirement, rehab)? @ -No Was there de-escalation of care discussed even if they declined (Discuss DNR or withdrawal of care, Hospice)? DNR status @ -No What co-morbidities impacted this encounter? (DM, HTN, Smoking, COPD, CAD, Cancer, CVA, ARF, Chemo, Hep., AIDS, mental health diagnosis, sleep apnea, morbid obesity)? @ -None Was patient admitted / discharged? Hospital course, mention meds given and route, prescriptions, significant lab abnormalities, going to OR and other perti nent info. @ -discharged. 38-year-old male presenting with fever and URI symptoms and feve r. Patient arrives febrile with a temperature of 102.8 and tachycardic with heart rate of 128. Provided with IV fluids, Advil, and Motrin. CMP, urinalysis, viral panel unremarkable. Sputum culture and blood cultures have been sent to lab. Urinalysis no signs of infection. Patient has responded well to medications and fluids as fever has resolved. Discharge. Discussion that sputum culture and blood cultures take few days to result and recommend the patient report back to emergency room for any new or worsening symptoms. States that he was prescribed Keflex few weeks ago for URI symptoms as this medication is easier on his stomach. Concerned that antibiotics have not helped infection with concern for bacterial bronchitis with persistent productive cough over the last 3 weeks he is provided with Augmentin. All questions have been answered at bedside and strict return parameters have been discussed with the patient is verbalized understanding. Undiagnosed new problem with uncertain prognosis? @ -No Drug Therapy requiring intensive monitoring for toxicity (Heparin, Nitro, Insulin, Cardizem)? @ -No Were any procedures done? @ -No Diagnosis/symptom? @ -tracheobronchitis, fever Acute, or Chronic, or Acute on Chronic? @ -acute Uncomplicated (without systemic symptoms) or Complicated (systemic symptoms)? @ -uncomplicated Side effects of treatment? @ -No Exacerbation, Progression, or Severe Exacerbation? @ -No Poses a threat to life or bodily function? How? (Chest pain, USA, OR, pneumonia, PE, COPD, DKA, ARF, appy, cholecystitis, CVA, Diverticulitis, Homicidal, Suicidal, threat to staff... and all critical care pts) @ -No - Lab Data Result diagrams: 03/26/24 05:50 03/26/24 05:50 Lab Results 03/26/24 03/26/24 03/26/24 Range/Units 05:50 05:50 05:50 WBC 7.1 (3.8-10.6) k/uL RBC 4.65 (4.30-5.90) m/uL Hgb 14.5 (13.0-17.5) gm/dL Hct 41.2 (39.0-53.0) % MCV 88.6 (80.0-100.0) fL MCH 31.2 (25.0-35.0) pg MCHC 35.2 (31.0-37.0) g/dL RDW 13.0 (11.5-15.5) % Plt Count 135 L (150-450) k/uL MPV 6.4 Neutrophils % 78 % Lymphocytes % 14 % Monocytes % 5 % Eosinophils % 1 % Basophils % 0 % Neutrophils # 5.6 (1.3-7.7) k/uL Lymphocytes # 1.0 (1.0-4.8) k/uL Monocytes # 0.4 (0-1.0) k/uL Eosinophils # 0.0 (0-0.7) k/uL Basophils # 0.0 (0-0.2) k/uL Sodium 136 L (137-145) mmol/L Potassium 3.9 (3.5-5.1) mmol/L Chloride 107 (98-107) mmol/L Carbon Dioxide 21 L (22-30) mmol/L Anion Gap 8 mmol/L BUN 13 (9-20) mg/dL Creatinine 0.70 (0.66-1.25) mg/dL Est GFR (CKD-EPI)AfAm >90 (>60 ml/min/1.73 sqM) Est GFR (CKD-EPI)NonAf >90 (>60 ml/min/1.73 sqM) Glucose 105 H (74-99) mg/dL Plasma Lactic Acid Fritz 1.1 (0.7-2.0) mmol/L Calcium 9.0 (8.4-10.2) mg/dL Phosphorus 3.1 (2.5-4.5) mg/dL Magnesium 1.9 (1.6-2.3) mg/dL Total Bilirubin 1.1 (0.2-1.3) mg/dL AST 78 H (17-59) U/L ALT 96 H (4-49) U/L Alkaline Phosphatase 75 (38-126) U/L Total Protein 7.3 (6.3-8.2) g/dL Albumin 4.2 (3.5-5.0) g/dL Urine Color Urine Appearance (Clear) Urine pH (5.0-8.0) Ur Specific Sutton (1.001-1.035) Urine Protein (Negative) Urine Glucose (UA) (Negative) Urine Ketones (Negative) Urine Blood (Negative) Urine Nitrite (Negative) Urine Bilirubin (Negative) Urine Urobilinogen (<2.0) mg/dL Ur Leukocyte Esterase (Negative) Urine RBC (0-5) /hpf Urine WBC (0-5) /hpf Ur Squamous Epith Cells (0-4) /hpf Hyaline Casts (0-2) /lpf Urine Mucus (None) /hpf Influenza Type A (PCR) (Not Detectd) Influenza Type B (PCR) (Not Detectd) RSV (PCR) (Not Detectd) SARS-CoV-2 (PCR) (Not Detectd) 03/26/24 03/26/24 Range/Units 05:50 06:25 WBC (3.8-10.6) k/uL RBC (4.30-5.90) m/uL Hgb (13.0-17.5) gm/dL Hct (39.0-53.0) % MCV (80.0-100.0) fL MCH (25.0-35.0) pg MCHC (31.0-37.0) g/dL RDW (11.5-15.5) % Plt Count (150-450) k/uL MPV Neutrophils % % Lymphocytes % % Monocytes % % Eosinophils % % Basophils % % Neutrophils # (1.3-7.7) k/uL Lymphocytes # (1.0-4.8) k/uL Monocytes # (0-1.0) k/uL Eosinophils # (0-0.7) k/uL Basophils # (0-0.2) k/uL Sodium (137-145) mmol/L Potassium (3.5-5.1) mmol/L Chloride (98-107) mmol/L Carbon Dioxide (22-30) mmol/L Anion Gap mmol/L BUN (9-20) mg/dL Creatinine (0.66-1.25) mg/dL Est GFR (CKD-EPI)AfAm (>60 ml/min/1.73 sqM) Est GFR (CKD-EPI)NonAf (>60 ml/min/1.73 sqM) Glucose (74-99) mg/dL Plasma Lactic Acid Fritz (0.7-2.0) mmol/L Calcium (8.4-10.2) mg/dL Phosphorus (2.5-4.5) mg/dL Magnesium (1.6-2.3) mg/dL Total Bilirubin (0.2-1.3) mg/dL AST (17-59) U/L ALT (4-49) U/L Alkaline Phosphatase (38-126) U/L Total Protein (6.3-8.2) g/dL Albumin (3.5-5.0) g/dL Urine Color Light Yellow Urine Appearance Clear (Clear) Urine pH 6.0 (5.0-8.0) Ur Specific Sutton 1.013 (1.001-1.035) Urine Protein Negative (Negative) Urine Glucose (UA) Negative (Negative) Urine Ketones Negative (Negative) Urine Blood Trace H (Negative) Urine Nitrite Negative (Negative) Urine Bilirubin Negative (Negative) Urine Urobilinogen <2.0 (<2.0) mg/dL Ur Leukocyte Esterase Negative (Negative) Urine RBC 3 (0-5) /hpf Urine WBC 1 (0-5) /hpf Ur Squamous Epith Cells <1 (0-4) /hpf Hyaline Casts 1 (0-2) /lpf Urine Mucus Rare H (None) /hpf Influenza Type A (PCR) Not Detected (Not Detectd) Influenza Type B (PCR) Not Detected (Not Detectd) RSV (PCR) Not Detected (Not Detectd) SARS-CoV-2 (PCR) Not Detected (Not Detectd) Disposition Clinical Impression: Tracheobronchitis Disposition: HOME SELF-CARE Condition: Good Instructions (If sedation given, give patient instructions): Fever in Adults (ED) Additional Instructions: Please return to the Emergency Department if symptoms worsen or any other concerns. Prescriptions: Amoxic-Pot Clav 875-125Mg [Augmentin 875-125] 1 tab PO Q12HR #20 tab Is patient prescribed a controlled substance at d/c from ED?: No Referrals: Lizzie Heck MD [Primary Care Provider] - 1-2 days Time of Disposition: 07:44
[2024-03-26] MEDS: IBUPROFEN 200 MG TAB PO STA (06:20)
[2024-03-26 06:36] LABS: Appearance,Urine Clear (Clear); Bilirubin,Urine Negative (Negative); Blood,Urine Trace (Negative); Color,Urine Light Yellow; Glucose,Urine (UA) Negative (Negative); Hyaline Casts,Urine 1 /lpf (0-2); Ketones,Urine Negative (Negative); Leukocyte Esterase,Urine Negative (Negative); Mucus,Urine Rare /hpf; Nitrite,Urine Negative (Negative); Protein,Urine Negative (Negative); RBC,Urine 3 /hpf (0-5); Specific Gravity,Urine 1.013 (1.001-1.035); Squamous Epithelial Cell,Urine <1 /hpf (0-4); Urobilinogen,Urine <2.0 mg/dL (<2.0); WBC,Urine 1 /hpf (0-5)
[2024-03-26 06:47] LABS: ALT 96 U/L (4-49); AST 78 U/L (17-59); African American GFR (CKD) >90 (>60 ml/min/1.73 sqM); Albumin 4.2 g/dL (3.5-5.0); Alkaline Phosphatase 75 U/L (38-126); Anion Gap 8 mmol/L; Blood Urea Nitrogen 13 mg/dL (9-20); Carbon Dioxide 21 mmol/L (22-30); Chloride 107 mmol/L (98-107); Glucose 105 mg/dL (74-99); Magnesium 1.9 mg/dL (1.6-2.3); Non-African American GFR(CKD) >90 (>60 ml/min/1.73 sqM); Phosphorus 3.1 mg/dL (2.5-4.5); Potassium 3.9 mmol/L (3.5-5.1); Sodium 136 mmol/L (137-145); Total Bilirubin 1.1 mg/dL (0.2-1.3); Total Protein 7.3 g/dL (6.3-8.2)
--- NOTE | 2024-03-26 07:10 | XR ---
Chest, 2 view. HISTORY: Fever COMPARISON: 08/31/2016 TECHNIQUE: PA and lateral views the chest are obtained. FINDINGS: The lungs are clear and there is no consolidative or interstitial opacity. There is no pleural effusion or pneumothorax. The heart, pulmonary vasculature, mediastinum and kathleen appear normal. The osseous structures are intact. IMPRESSION: No significant abnormality seen. No acute cardiopulmonary disease. [facility], , 03/26/2024 7:08 AM
[2024-03-26] MEDS: AMOXIC-POT CLAV 875-125MG 1 EACH TAB PO STA (07:56)
[2024-03-26 08:04] VITALS: BP 107/73; PULSE 103; RESP 16; TEMP 99.5
== END 2024-03-26 08:03 | disposition home or self-care (01) ==
LOC: EC 05:20
DX: J40 Bronchitis, not specified as acute or chronic (principal); F17.200 Nicotine dependence, unspecified, uncomplicated; Z88.2 Allergy status to sulfonamides
CPT/HCPCS: 99284; 96374; 96361; 36415; 80053; 83605; 83735; 84100; 85025; 81001; 87040; 87070; 87205; 87636; 71046; J1885

== ENCOUNTER 2024-03-31 12:24 | Inpatient (IN) | payer MEDICARE ==
--- NOTE | 2024-03-31 12:38 | ED ---
ENT HPI - General Source: patient, RN notes reviewed Mode of arrival: ambulatory Limitations: no limitations <Merly Hong - Last Filed: 03/31/24 12:36> - General Source: patient, RN notes reviewed, old records reviewed Mode of arrival: ambulatory Limitations: no limitations - History of Present Illness MD complaint: other (Cough fever sore throat) -: days(s) Severity: moderate Severity scale (1-10): 7 Quality: aching Consistency: constant Improves with: none Worsens with: none Associated Symptoms: fever, cough <Michael Harris - Last Filed: 03/31/24 14:07> - General Chief complaint: ENT Stated complaint: ENT Time Seen by Provider: 03/31/24 12:30 - History of Present Illness Initial comments: Quick Note: This is a 38-year-old male who presents to the emergency department for an abnormal throat culture. Patient was evaluated here 5 days ago for high fevers and URI symptoms that had not been getting any better. He has a history of MRSA in the throat and requested a throat culture. He received a call saying that this was positive for MRSA and oral antibiotics would not be effective, as he is allergic to Bactrim. He was advised to come here for further management with IV antibiotics. States that he is in general feeling better than he was then. (Merly Hong) This is a 38-year-old male admitted for evaluation, patient was found to have MRSA positive sputum (Michael Harris) - Related Data Home Medications Medication Instructions Recorded Confirmed Omeprazole [PriLOSEC] 20 mg PO BID 06/09/14 01/02/23 Hydrocodone/Acetaminophen [[place] 1 tab PO TID PRN 08/31/16 01/02/23 5-325 Tablet] inFLIXimab [Remicade] 1 injection SQ QMONTHLY 01/02/23 01/08/23 Previous Rx's Medication Instructions Recorded Levofloxacin [Levaquin] 500 mg PO DAILY 1 Days #10 tab 01/08/23 Amoxic-Pot Clav 875-125Mg 1 tab PO Q12HR #20 tab 03/26/24 [Augmentin 875-125] Allergies Allergy/AdvReac Type Severity Reaction Status Date / Time Sulfa (Sulfonamide Allergy MENINGITIS Verified 03/31/24 12:32 Antibiotics) Review of Systems ROS Other: All systems not noted in ROS Statement are negative. <Merly Hong - Last Filed: 03/31/24 12:36> ROS Other: All systems not noted in ROS Statement are negative. <Michael Harris Lorna - Last Filed: 03/31/24 14:07> ROS Statement: Those systems with pertinent positive or pertinent negative responses have been documented in the HPI. Past Medical History Past Medical History: Skin Disorder Additional Past Medical History / Comment(s): OSTEOMYELITIS, CROHNS SINCE AGE 9, PICC LINE INFECTIONS AND SEPSIS, psoriasis, atopic dermatitis, cellulitis, elevated liver enzymes. History of Any Multi-Drug Resistant Organisms: MRSA Date of last positivie culture/infection: 04/25/11 MDRO Source:: Unknown Past Surgical History: Bowel Resection, Orthopedic Surgery Additional Past Surgical History / Comment(s): ORIF distal radius with pinning- since removed, R wrist surgical site infection with I&D/picc line, 2 other I&Ds of R wrist, pt states that he has no large intestine (CROHNS), COLOSTOMY, scrotal surgery d/t torsion, colonoscopies. Past Anesthesia/Blood Transfusion Reactions: No Reported Reaction Additional Past Anesthesia/Blood Transfusion Reaction / Comment(s): HAS RECIEVED PLATELETS IN PAST. Past Psychological History: No Psychological Hx Reported Smoking Status: Current some day smoker Past Alcohol Use History: None Reported Past Drug Use History: None Reported - Past Family History Father Family Medical History: Cancer Additional Family Medical History / Comment(s): skin cancer. worked as [employer] specialist and was shot in head but survived Mother Family Medical History: No Reported History Additional Family Medical History / Comment(s): skin cancer <Merly Hong - Last Filed: 03/31/24 12:36> General Exam Limitations: no limitations <Merly Hong - Last Filed: 03/31/24 12:36> General appearance: alert, in no apparent distress Head exam: Present: atraumatic, normocephalic, normal inspection Eye exam: Present: normal appearance, PERRL, EOMI. Absent: scleral icterus, co njunctival injection, periorbital swelling ENT exam: Present: normal exam, mucous membranes moist Neck exam: Present: normal inspection. Absent: tenderness, meningismus, lymphadenopathy Respiratory exam: Present: normal lung sounds bilaterally. Absent: respiratory distress, wheezes, rales, rhonchi, stridor Cardiovascular Exam: Present: regular rate, normal rhythm, normal heart sounds. Absent: systolic murmur, diastolic murmur, rubs, gallop, clicks GI/Abdominal exam: Present: soft, normal bowel sounds. Absent: distended, tenderness, guarding, rebound, rigid Extremities exam: Present: normal inspection, full ROM, normal capillary refill. Absent: tenderness, pedal edema, joint swelling, calf tenderness Back exam: Present: normal inspection Neurological exam: Present: alert, oriented X3, CN II-XII intact Psychiatric exam: Present: normal affect, normal mood Skin exam: Present: warm, dry, intact, normal color. Absent: rash <Michael Harris - Last Filed: 03/31/24 14:07> - General Exam Comments Initial Comments: Visual Physical Exam Vital signs reviewed General: Well-appearing, nontoxic, no acute distress. Head: Normocephalic, atraumatic Eyes: PERRLA, EOMI ENT: Airway patent Chest: Nonlabored breathing Skin: No visual rash, normal skin tone Neuro: Alert and oriented 3 Musculoskeletal: No gross abnormalities (VojosueeyMerly) Course <Michael Harris - Last Filed: 03/31/24 14:07> Vital Signs 03/31/24 12:30 Temperature 98.4 F Pulse Rate 82 Respiratory 18 Rate Blood Pressure 144/98 O2 Sat by Pulse 99 Oximetry - Reevaluation(s) Reevaluation #1: 03/31/24 14:05 Medical records reviewed (Michael Harris) Reevaluation #2: 03/31/24 14:05 Patient symptoms unchanged (Michael Harris) Reevaluation #3: 03/31/24 14:05 Patient informed of results and questions answered (Michael Harris) Reevaluation #4: Was pt. sent in by a medical professional or institution (, PA, FILTER CLEANER, urgent care, hospital, or skilled nursing...) When possible be specific @ -no Did you speak to anyone other than the patient for history (EMS, parent, family, police, friend...)? What history was obtained from this source @ -no Did you review nursing and triage notes (agree or disagree)? Why? @ -agree Are old charts reviewed (outside hosp., previous admission, EMS record, old EKG, old radiological studies, urgent care reports/EKG's, skilled nursing records)? Report findings @ -yes Differential Diagnosis (chest pain, altered mental status, abdominal pain women, abdominal pain men, vaginal bleeding, weakness, fever, dyspnea, syncope, headache, dizziness, GI bleed, back pain, seizure, CVA, palpatations, mental health, musculoskeletal)? @ -prior EKG interpreted by me (3pts min.). @ -yes X-rays interpreted by me (1pt min.). @ -yes negative for acute disease CT interpreted by me (1pt min.). @ -no U/S interpreted by me (1pt. min.). @ -no What testing was considered but not performed or refused? (CT, X-rays, U/S, labs)? Why? @ -none What meds were considered but not given or refused? Why? @ -none Did you discuss the management of the patient with other professionals (professionals i.e. , PA, FILTER CLEANER, lab, RT, psych nurse, social welfare research worker, digital campaign specialist, teacher, tactical intelligence officer, home health care case manager)? Give summary @ -no Was smoking cessation discussed for >3mins.? @ -no Was critical care preformed (if so, how long)? @ -no Were there social determinants of health that impacted care today? How? (Homelessness, low income, unemployed, alcoholism, drug addiction, transportation, low edu. Level, literacy, decrease access to med. care, halfway, rehab)? @ -none Was there de-escalation of care discussed even if they declined (Discuss DNR or withdrawal of care, Hospice)? DNR status @ -no What co-morbidities impacted this encounter? (DM, HTN, Smoking, COPD, CAD, Cancer, CVA, ARF, Chemo, Hep., AIDS, mental health diagnosis, sleep apnea, morbid obesity)? @ -none Was patient admitted / discharged? Hospital course, mention meds given and route, prescriptions, significant lab abnormalities, going to OR and other pertinent info. @ - Undiagnosed new problem with uncertain prognosis? @ -no Drug Therapy requiring intensive monitoring for toxicity (Heparin, Nitro, Insulin, Cardizem)? @ -no Were any procedures done? @ -no Diagnosis/symptom? @ - Acute, or Chronic, or Acute on Chronic? @ -Acute Uncomplicated (without systemic symptoms) or Complicated (systemic symptoms)? @ -Complicated Side effects of treatment? @ -no Exacerbation, Progression, or Severe Exacerbation? @ -exacerbation Poses a threat to life or bodily function? How? (Chest pain, [place], [place], pneumonia, PE, COPD, DKA, ARF, appy, cholecystitis, CVA, Diverticulitis, Homicidal, Suicidal, threat to staff... and all critical care pts) @ -yes (Michael Harris) Reevaluation #5: Differential Fever: Pneumonia, viral URI, endocarditis, myocarditis, pericarditis, otitis, sinusitis, peritonsillar Abscess, retropharyngeal Abscess, epiglottitis, peritonitis, appendicitis, [place] cystitis, diverticulitis, hepatitis, colitis, UTI, PID, TOA, pyelonephritis, prostatitis, epididymitis, meningitis, encephalitis, pulmonary embolism, CVA, thyroid storm, pancreatitis, adrenal moiz is, cavernous sinus thrombosis, this is not meant to be an all-inclusive list. Differential Dyspnea: Coronary syndrome, arrhythmia, tamponade, asthma, COPD, pulmonary embolism, pneumonia, pneumothorax, pulmonary effusion, anaphylaxis, diabetic ketoacidosis, flailed chest, pulmonary contusion, diaphragmatic rupture, anemia, neuromuscular, this is not meant to be an all-inclusive list. (Michael Harris) - Consultations Consultation #1: Spoke with sound who agreed to admit this patient (Michael Harris) Medical Decision Making <Merly Hong - Last Filed: 03/31/24 12:36> - Radiology Data Radiology results: report reviewed (Chest x-ray is positive for pneumonia), image reviewed <Michael Harris - Last Filed: 03/31/24 14:07> - Medical Decision Making I performed the QuickNote portion of this chart. Signed Merly Hong PA-C. (Merly Hong) 78 male to the ER for evaluation of shortness of breath and fever. Positive for MRSA pneumonia and will admit for IV antibiotics, culture resistant to all oral medications and patient is allergic to Bactrim (Michael Harris) Disposition <Merly Hong - Last Filed: 03/31/24 12:36> Is patient prescribed a controlled substance at d/c from ED?: No Time of Disposition: 14:00 <Michael Harris - Last Filed: 03/31/24 14:07> Clinical Impression: Fever, Hx of Crohn's disease, MRSA pneumonia Disposition: ADMITTED IP TO THIS HOSP Condition: Serious Referrals: Lizzie Heck MD [Primary Care Provider] - 1-2 days
[2024-03-31] MEDS ORDERED: VANCOMYCIN IV PER PHARMACY 1 EACH MISC MISCELLANE PRN (13:29)
[2024-03-31] MEDS ORDERED: NALOXONE 0.4 MG/ML 1 ML VIAL IV PRN (14:03)
[2024-03-31 14:29] LABS: Basophils # (A) 0.1 k/uL (0-0.2); Basophils % (A) 1 %; Eosinophils # (A) 0.4 k/uL (0-0.7); Eosinophils % (A) 3 %; HCT 44.8 % (39.0-53.0); HGB 15.3 gm/dL (13.0-17.5); Lymphocytes # (A) 4.1 k/uL (1.0-4.8); Lymphocytes % (A) 30 %; MCH 30.3 pg (25.0-35.0); MCHC 34.2 g/dL (31.0-37.0); MCV 88.5 fL (80.0-100.0); Mean Platelet Volume 6.8; Monocytes % (A) 7 %; Neutrophils # (A) 8.1 k/uL (1.3-7.7); Neutrophils % (A) 58 %; Platelet Count 167 k/uL (150-450); RBC 5.06 m/uL (4.30-5.90); RDW 13.1 % (11.5-15.5); WBC 13.9 k/uL (3.8-10.6)
[2024-03-31 14:38] LABS: ALT 72 U/L (4-49); AST 44 U/L (17-59); African American GFR (CKD) >90 (>60 ml/min/1.73 sqM); Albumin 4.8 g/dL (3.5-5.0); Alkaline Phosphatase 74 U/L (38-126); Anion Gap 10 mmol/L; Blood Urea Nitrogen 16 mg/dL (9-20); Calcium 9.5 mg/dL (8.4-10.2); Carbon Dioxide 24 mmol/L (22-30); Chloride 103 mmol/L (98-107); Glucose 93 mg/dL (74-99); Magnesium 2.2 mg/dL (1.6-2.3); Non-African American GFR(CKD) >90 (>60 ml/min/1.73 sqM); Phosphorus 4.1 mg/dL (2.5-4.5); Potassium 4.3 mmol/L (3.5-5.1); Sodium 137 mmol/L (137-145); Total Bilirubin 0.6 mg/dL (0.2-1.3); Total Protein 8.7 g/dL (6.3-8.2)
[2024-03-31] MEDS: ONDANSETRON 4 MG/2 ML VIAL IVP PRN (16:43)
[2024-03-31] MEDS: MORPHINE SULFATE 4 MG/ML SYRINGE IV PRN (16:45)
[2024-03-31] MEDS: VANCOMYCIN 1,500 MG in SODIUM CHLORIDE 0.9% 500 ML 500 ML IVPB ONE (16:47)
[2024-03-31] MEDS: SODIUM CHLORIDE 0.9% 1,000 ML IV STA ×2 (16:50→16:51)
[2024-03-31] MEDS: SODIUM CHLORIDE 0.9% 500 ML 500 ML IV STA (16:52)
[2024-03-31] MEDS: SODIUM CHLORIDE 0.9% 1,000 ML IV SCH (16:53)
--- NOTE | 2024-03-31 17:10 | P.HPIM ---
History of Present Illness H&P Date: 03/31/24 Patient is a 38-year-old male with Crohn's disease presenting with upper respiratory symptoms. Patient was recently in the ER 5 days ago complaining of upper respiratory symptoms, sputum cultures at that time were taken, patient was discharged home on Augmentin. He continues to have similar symptoms, sputum cultures came back positive for MRSA. He claims that his symptoms has been ongo ing for almost 1 month. He had his last infusion about 2 weeks ago. He claims that he usually has watery eyes due to his infusions. He has been having intermittent fevers at home, last fever was last night. He did not improve on Augmentin, and did receive a phone call thoracic stating that he has MRSA noted on his sputum cultures, and was asked to come to the ER. He denies any chest pain, shortness of breath, does have occasional productive cough. But he denies any abdominal pain, urinary symptoms, bowel complaints, new rashes, or travel history. Some of his family members also had recent upper respiratory infections. In the ED, temperature was 98.4, pulse 82, respiratory rate 18, blood pressure 144/98, saturating at 99% on room air. Repeat chest x-ray pending. WBC 13.9, hemoglobin 15.3, creatinine 0.6. Patient started on IV vancomycin. Was also given 1.5 L of normal saline in the ED. Pulmonology also consulted. Pertinent positives and negatives as discussed in HPI, a complete review of systems was performed and all other systems are negative. Patient seen and examined at bedside. Vital signs reviewed General: nontoxic, no distress, appears at stated age Derm: warm, dry Head: atraumatic, normocephalic, symmetric Eyes: EOMI, no lid lag, anicteric sclera, pupils equal round reactive to light ENT: Nose and ears atraumatic Neck: No thyromegaly, supple Mouth: no lip lesion, mucus membranes moist Cardiovascular: S1S2 reg, no murmur, no edema Lungs: clear to auscultation bilateral, no rhonchi, no rales, no wheeze, no accessory muscle use Abdominal: soft, nontender to palpation, no guarding, no appreciable organomegaly Ext: no gross muscle atrophy, muscle strength muscle strength 5 out of 5 in all 4 extremities, no contractures Neuro: CN II-XII grossly intact Psych: Alert, oriented, appropriate affect Assessment/Plan: Active: Upper respiratory infection Suspected bacterial rhinosinusitis Positive MRSA sputum Conjunctivitis -Repeat chest x-ray pending -No clinical signs of pneumonia -Order procalcitonin, repeat sputum cultures, blood cultures -Pulmonology consulted per ED -Continue IV vancomycin, monitor for renal toxicity -Due to persistent symptoms for last 1 month including fevers, we will get a CT of the face Chronic: Crohn's disease GERD The patient is admitted with an anticipated greater than 2 midnight stay as inpatient status for evaluation of MRSA pneumonia. Surrogate decision-maker: Father CODE STATUS: Full code DVT prophylaxis: Lovenox Anticipated discharge date: Pending clinical course Anticipated discharge place: Pending clinical course A total of 55 minutes was spent on the care of this complex patient more than 50% of the time was spent in counseling and care coordination. Past Medical History Past Medical History: Skin Disorder Additional Past Medical History / Comment(s): OSTEOMYELITIS, CROHNS SINCE AGE 9, PICC LINE INFECTIONS AND SEPSIS, psoriasis, atopic dermatitis, cellulitis, elevated liver enzymes. History of Any Multi-Drug Resistant Organisms: MRSA Date of last positivie culture/infection: 04/25/11 MDRO Source:: Unknown Past Surgical History: Bowel Resection, Orthopedic Surgery Additional Past Surgical History / Comment(s): ORIF distal radius with pinning- since removed, R wrist surgical site infection with I&D/picc line, 2 other I&Ds of R wrist, pt states that he has no large intestine (CROHNS), COLOSTOMY, scrotal surgery d/t torsion, colonoscopies. Past Anesthesia/Blood Transfusion Reactions: No Reported Reaction Additional Past Anesthesia/Blood Transfusion Reaction / Comment(s): HAS RECIEVED PLATELETS IN PAST. Past Psychological History: No Psychological Hx Reported Smoking Status: Current some day smoker Past Alcohol Use History: None Reported Past Drug Use History: None Reported - Past Family History Father Family Medical History: Cancer Additional Family Medical History / Comment(s): skin cancer. worked as environmental health technician and was shot in head but survived Mother Family Medical History: No Reported History Additional Family Medical History / Comment(s): skin cancer Medications and Allergies Home Medications Medication Instructions Recorded Confirmed Type Omeprazole [PriLOSEC] 20 mg PO BID 06/09/14 03/31/24 History Amoxic-Pot Clav 875-125Mg 1 tab PO Q12HR #20 tab 03/26/24 03/31/24 Rx [Augmentin 875-125] Ibuprofen [Motrin Ib] 600 mg PO Q6H PRN 03/31/24 03/31/24 History Risankizumab-Rzaa [Skyrizi On-Body] 360 mg SQ Q56D 03/31/24 03/31/24 History oxyCODONE HCL [OxyIR] 5 mg PO TID PRN 03/31/24 03/31/24 History Allergies Allergy/AdvReac Type Severity Reaction Status Date / Time Sulfa (Sulfonamide Allergy MENINGITIS Verified 03/31/24 12:32 Antibiotics) Physical Exam Vitals: Vital Signs Temp Pulse Resp BP Pulse Ox 03/31/24 12:30 98.4 F 82 18 144/98 99 Intake and Output 03/30/24 03/31/24 03/31/24 22:59 06:59 14:59 Other: Weight 87.543 kg Results CBC & Chem 7: 03/31/24 14:21 03/31/24 14:21 Labs: Abnormal Lab Results - Last 24 Hours (Table) 03/31/24 03/31/24 Range/Units 14:21 14:21 WBC 13.9 H (3.8-10.6) k/uL Neutrophils # 8.1 H (1.3-7.7) k/uL Creatinine 0.60 L (0.66-1.25) mg/dL ALT 72 H (4-49) U/L C-Reactive Protein 2.0 H (<1.0) mg/dL Total Protein 8.7 H (6.3-8.2) g/dL
--- NOTE | 2024-03-31 17:23 | XR ---
EXAMINATION TYPE: XR chest 2V DATE OF EXAM: 03/31/2024 5:06 PM COMPARISON: 03/26/2024 CLINICAL INDICATION: Male, 38 years old with history of pneumonia TECHNIQUE: XR chest 2V view(s) obtained. FINDINGS: The heart size is normal. The pulmonary vasculature is normal. The lungs are clear. IMPRESSION: 1. No acute pulmonary process. [facility], , 03/31/2024 5:20 PM
--- NOTE | 2024-03-31 23:28 | CT ---
EXAMINATION TYPE: CT facial bones w con DATE OF EXAM: 03/31/2024 COMPARISON: None. HISTORY: bacterial rhinosinusitis, immunocompromised CT DLP: 463.9 mGycm. Automated Exposure Control for Dose Reduction was Utilized. TECHNIQUE: CT scan of the facial bones is performed with IV Contrast, patient injected with 100ml m L of Isovue 300. FINDINGS: Mild mucosal thickening right maxillary sinus with dependent fluid. Remainder of the parana laila sinuses are clear. Globes are intact bilaterally. No acute displaced facial bone fracture. No suspicious bony destructio n. Cavitary fillings and crowns noted causing some adjacent streak artifact. Subcentimeter lymph node s surrounding the bilateral submandibular glands. IMPRESSION: Acute right maxillary sinus disease suspected. [facility], , 03/31/2024 11:25 PM
[2024-04-01] MEDS: VANCOMYCIN 1,500 MG in SODIUM CHLORIDE 0.9% 500 ML 500 ML IVPB SCH (01:01)
--- NOTE | 2024-04-01 06:25 | P.CNPUL ---
History of Present Illness Consult date: 04/01/24 Requesting physician: Michael Harris Reason for consult: other (Sinusitis) Chief complaint: Sinus pressure, nasal drainage, high fevers History of present illness: Patient is a 38-year-old male with past medical history significant for Crohn's disease, psoriasis, among other things. PCP is Dr. Heck. He is on Biologics for his Crohn's disease. Previously maintained on Inflectra and Dupixent which have been stopped, and the patient has been started on Skyrizi by the direction of her forester silviculture. His Crohn's is reportedly well under control at this time. Patient does have frequent infections and staph infections. Of note, patient did have a COVID infection approximately 1 month ago. Following this developed sinus pressure, yellow nasal drainage, postnasal drip, and in termittent high fevers. Denies sore throat, dysphagia, or voice hoarseness. He also has significant eye redness and blurry vision. Denies any significant drainage or eye pain. Also, admits left ear fullness and tenderness. He was previously treated outpatient with Keflex then Augmentin. No improvement in symptoms. Per ER note, he did have a throat culture positive for MRSA on 03/26. He is allergic to sulfa antibiotics and Bactrim. He was admitted in the emergency department for IV vancomycin. He denies any difficulty in breathing, cough, or sputum production. Chest x-ray was unremarkable for any acute infiltrates or pneumonia. He denies any pre-existing lung disease. Facial CT remarkable for acute right maxillary sinusitis. CBC is remarkable for leukocytosis with a WBC count of 13.9. CMP is unremarkable, electrolytes within defined limits, creatinine 0.6. Previous viral screen negative for influenza, RSV, COVID on ER visit 03/26. Most recent vital signs: Temperature 97.8 F, nontachypneic, SpO2 98% on room air, heart rate 74 bpm, blood pressure 117/74 mmHg. Patient is currently being evaluated on the general medical floor, he is in no acute respiratory distress. Nontoxic appearance. Review of Systems Constitutional: Reports chills, Reports fatigue, Reports fever, Reports poor appetite, Denies weight gain, Denies weight loss Eyes: bilateral blurred vision, bilateral irritation, denies itching, denies pain, denies loss of peripheral vision, denies loss of vision Ears: left: earache, deny: ear discharge Ears, nose, mouth and throat: Reports headache, Reports nasal congestion, Reports nasal discharge, Reports post-nasal drip, Reports sinus pressure, Denies dysphagia, Denies epistaxis, Denies neck fullness/pressure, Denies sinus pain, Denies swelling in mouth, Denies swelling in throat, Denies sore throat, Denies voice changes Cardiovascular: Denies chest pain, Denies dyspnea on exertion, Denies leg edema, Denies orthopnea, Denies palpitations, Denies paroxysmal nocturnal dyspnea, Denies syncope Respiratory: Denies congestion, Denies cough, Denies dyspnea Gastrointestinal: Denies abdominal pain, Denies constipation, Denies diarrhea, Denies hematochezia, Denies melena, Denies nausea, Denies vomiting Genitourinary: Denies dysuria Musculoskeletal: Denies limitation of motion Integumentary: Denies rash Neurological: Denies seizures, Denies syncope Psychiatric: Denies anxiety, Denies depression Past Medical History Past Medical History: Skin Disorder Additional Past Medical History / Comment(s): OSTEOMYELITIS, CROHNS SINCE AGE 9, PICC LINE INFECTIONS AND SEPSIS, psoriasis, atopic dermatitis, cellulitis, elevated liver enzymes. History of Any Multi-Drug Resistant Organisms: MRSA Date of last positivie culture/infection: 04/25/11 MDRO Source:: Unknown Past Surgical History: Bowel Resection, Orthopedic Surgery Additional Past Surgical History / Comment(s): ORIF distal radius with pinning- since removed, R wrist surgical site infection with I&D/picc line, 2 other I&Ds of R wrist, pt states that he has no large intestine (CROHNS), COLOSTOMY, scrotal surgery d/t torsion, colonoscopies. Past Anesthesia/Blood Transfusion Reactions: No Reported Reaction Additional Past Anesthesia/Blood Transfusion Reaction / Comment(s): HAS RECIEVED PLATELETS IN PAST. Past Psychological History: No Psychological Hx Reported Smoking Status: Current some day smoker Past Alcohol Use History: None Reported Past Drug Use History: None Reported - Past Family History Father Family Medical History: Cancer Additional Family Medical History / Comment(s): skin cancer. worked as cosmetic account coordinator and was shot in head but survived Mother Family Medical History: No Reported History Additional Family Medical History / Comment(s): skin cancer Medications and Allergies Home Medications Medication Instructions Recorded Confirmed Type Omeprazole [PriLOSEC] 20 mg PO BID 06/09/14 03/31/24 History Amoxic-Pot Clav 875-125Mg 1 tab PO Q12HR #20 tab 03/26/24 03/31/24 Rx [Augmentin 875-125] Ibuprofen [Motrin Ib] 600 mg PO Q6H PRN 03/31/24 03/31/24 History Risankizumab-Rzaa [Skyrizi On-Body] 360 mg SQ Q56D 03/31/24 03/31/24 History oxyCODONE HCL [OxyIR] 5 mg PO TID PRN 03/31/24 03/31/24 History Allergies Allergy/AdvReac Type Severity Reaction Status Date / Time Sulfa (Sulfonamide Allergy MENINGITIS Verified 03/31/24 12:32 Antibiotics) Physical Exam Vitals: Vital Signs Temp Pulse Pulse Resp BP BP Pulse Ox 04/01/24 02:00 97.8 F 74 17 117/74 98 03/31/24 19:51 98.4 F 80 17 133/87 97 03/31/24 17:13 98.4 F 90 16 153/93 96 03/31/24 12:30 98.4 F 82 18 144/98 99 Intake and Output 03/31/24 03/31/24 04/01/24 14:59 22:59 06:59 Other: # Voids 3 Weight 87.543 kg GENERAL EXAM: Alert, 38-year-old obese white male, nontoxic appearance, comforta ble in no apparent distress. HEAD: Normocephalic and atraumatic EYES: Normal reaction of pupils, equal size. Bilateral sclera erythema and conjunctivitis NOSE: Erythemic turbinates, yellow drainage THROAT: No erythema or exudates. NECK: No masses, no JVD. CHEST: No chest wall deformity. LUNGS: Equal air entry with bibasilar inspiratory crackles. No wheeze, rhonchi or dullness. On room air. No conversational dyspnea or accessory muscle use.. CVS: S1 and S2 normal with no audible murmur, regular rhythm. No extra heart sounds ABDOMEN: No hepatosplenomegaly, active bowel sounds, no guarding or rigidity. SPINE: No scoliosis or deformity SKIN: No rashes CENTRAL NERVOUS SYSTEM: No focal deficits, tone is normal in all 4 extremities. EXTREMITIES: There is no peripheral edema, clubbing, or cyanosis. Peripheral pulses are intact. Results - Laboratory Findings CBC and BMP: 03/31/24 14:21 03/31/24 14:21 Abnormal lab findings: Abnormal Labs 03/31/24 03/31/24 14:21 14:21 WBC 13.9 H Neutrophils # 8.1 H Creatinine 0.60 L ALT 72 H C-Reactive Protein 2.0 H Total Protein 8.7 H - Diagnostic Findings CT scan - chest: image reviewed Assessment and Plan Assessment: Acute right maxillary sinusitis, per facial CT Throat culture positive for MRSA Bilateral conjunctivitis Crohn's disease, maintained on Biologics, currently on Skyrizi Reported recent COVID infection, no pulmonary symptoms at this time History of psoriasis History of osteomyelitis Obesity, with a BMI of 34.2 kg/m Plan: Patient's medications, labs, chest x-ray reviewed No acute cardiopulmonary process Consult ENT Sputum/throat culture positive for MRSA on 03/26 Allergic to sulfa antibiotics/Bactrim Continues on vancomycin IV Will likely continue to follow as needed I have personally seen and examined the patient, performed the documentation and the assessment and plan as written. Number of minutes spent on the visit:20 Time with Patient: Greater than 30
[2024-04-01] MEDS: ARTIFICIAL TEARS OINTMENT 3.5 GM TUBE BOTH EYES PRN (08:20)
[2024-04-01] MEDS: PANTOPRAZOLE 40 MG TABLET PO SCH (08:21)
[2024-04-01] MEDS: ENOXAPARIN 40 MG/0.4 ML SYRINGE SQ SCH (08:22)
[2024-04-01 08:53] LABS: BUN/Creat Ratio 16.33 Ratio (12.00-20.00); Blood Urea Nitrogen 9.8 mg/dL (9.0-27.0); Glucose 128 mg/dL (70-110)
[2024-04-01 08:54] LABS: ALT 48 U/L (10-49); AST 30 U/L (14-35); Albumin 3.4 g/dL (3.8-4.9); Albumin/Globulin Ratio 1.36 Ratio (1.60-3.17); Alkaline Phosphatase 56 U/L (41-126); Calcium 7.8 mg/dL (8.7-10.3); Carbon Dioxide 19.9 mmol/L (21.6-31.8); Chloride 106 mmol/L (96-109); Globulin 2.5 g/dL (1.6-3.3); Magnesium 1.9 mg/dL (1.5-2.4); Phosphorus 3.4 mg/dL (2.4-5.1); Potassium 3.7 mmol/L (3.5-5.5); Sodium 136 mmol/L (135-145); Total Bilirubin 0.3 mg/dL (0.3-1.2); Total Protein 5.9 g/dL (6.2-8.2)
[2024-04-01 09:10] LABS: Basophils # (A) 0.06 X 10*3/uL (0.00-0.10); Basophils % (A) 0.5 %; Eosinophils # (A) 0.38 X 10*3/uL (0.04-0.35); Eosinophils % (A) 3.4 %; HCT 37.4 % (39.6-50.0); HGB 12.6 g/dL (13.0-17.0); Lymphocytes # (A) 4.37 X 10*3/uL (0.90-5.00); Lymphocytes % (A) 38.8 %; MCH 29.9 pg (27.0-32.0); MCHC 33.7 g/dL (32.0-37.0); MCV 88.6 FL (80.0-97.0); Mean Platelet Volume 9.4 FL (9.5-12.2); Monocytes # (A) 1.18 X 10*3/uL (0.20-1.00); Monocytes % (A) 10.5 %; NRBC Per 100 WBC 0 X 10*3/uL (0.00-0.01); Neutrophils # (A) 5.21 X 10*3/uL (1.80-7.70); Neutrophils % (A) 46.3 %; Platelet Count 138 X 10*3/uL (140-440); RBC 4.22 X 10*6/uL (4.40-5.60); RDW 13.1 % (11.5-14.5); WBC 11.26 X 10*3/uL (4.50-10.00)
--- NOTE | 2024-04-01 12:31 | P.PN ---
Subjective Progress Note Date: 04/01/24 Hospital Course: 38-year-old male with Crohn's disease presenting with upper respiratory sympto ms. Patient was previously positive for MRSA. In the ED, temperature was 98.4, pulse 82, respiratory rate 18, blood pressure 144/98, saturating at 99% on room air. Chest x-ray did not show any acute process. WBC 13.9, hemoglobin 15.3, creatinine 0.6. Patient started on IV vancomycin. Was also given 1.5 L of normal saline in the ED. Pulmonology also consulted. Face CT showed acute right maxillary sinus disease. ID consulted. Patient continued on IV vancomycin. Subjective: Patient seen and examined at bedside. No acute events overnight. Complaining of bilateral eye discomfort. Pertinent positives and negatives as discussed above, a complete review of systems was performed and all other systems are negative. Vitals Signs Reviewed. General: Nontoxic, no distress, appears at stated age Derm: Warm, dry Head: Atraumatic, normocephalic, symmetric, Sinus tenderness to palpation Eyes: EOMI, no lid lag, anicteric sclera, bilateral conjunctivitis Mouth: No lip lesion, mucus membranes moist Cardiovascular: S1S2 reg, no murmur Lungs: CTA bilateral, no rhonchi, no rales, no accessory muscle use Abdominal: Soft, nontender to palpation, no guarding, no appreciable organomegaly Ext: No gross muscle atrophy, no edema, no contractures Neuro: CN II-XI grossly intact, no focal neuro deficits Psych: Alert, oriented, appropriate affect Data Reviewed Today: Pertinent Labs: WBC 11.26, hemoglobin 12.6, creatinine 0.6, procalcitonin 0.36 Imaging: Face CT shows acute right maxillary sinus disease, chest x-ray independently interpreted did not show any acute process Assessment and Plan: Active: Acute right maxillary sinusitis Leukocytosis Positive MRSA throat cultures Bilateral conjunctivitis, likely allergic -Pulmonology following, recommend ENT consult, no ENT available -Discussed management with ID, continue IV vancomycin for now -Continue IV vancomycin, monitor for renal toxicity -Started on artificial tears, as well as Ketotifen ophthalmic solution Chronic: Crohn's disease GERD DVT ppx: Lovenox Code status: Full code Anticipated discharge place: Home Anticipated discharge time: Pending clinical course Objective - Vital Signs Vital signs: Vital Signs Temp 98.1 F 04/01/24 07:26 Pulse 59 L 12/31/24 07:26 Resp 17 04/01/24 07:26 BP 110/79 04/01/24 07:26 Pulse Ox 96 04/01/24 07:26 FiO2 Intake & Output 03/31/24 04/01/24 04/01/24 18:59 06:59 18:59 Weight 87.543 kg Other: # Voids 3 - Labs CBC & Chem 7: 04/01/24 02:43 04/01/24 02:43 Labs: Abnormal Lab Results - Last 24 Hours (Table) 03/31/24 03/31/24 04/01/24 Range/Units 14:21 14:21 02:43 WBC 13.9 H 11.26 H (3.8-10.6) k/uL RBC 4.22 L (4.40-5.60) X 10*6/uL Hgb 12.6 L (13.0-17.0) g/dL Hct 37.4 L (39.6-50.0) % Plt Count 138 L (140-440) X 10*3/uL MPV 9.4 L (9.5-12.2) FL Immature Gran # 0.06 H (0.00-0.04) X 10*3/uL Neutrophils # 8.1 H (1.3-7.7) k/uL Monocytes # 1.18 H (0.20-1.00) X 10*3/uL Eosinophils # 0.38 H (0.04-0.35) X 10*3/uL Carbon Dioxide (21.6-31.8) mmol/L Creatinine 0.60 L (0.66-1.25) mg/dL Glucose (70-110) mg/dL Calcium (8.7-10.3) mg/dL ALT 72 H (4-49) U/L C-Reactive Protein 2.0 H (<1.0) mg/dL Total Protein 8.7 H (6.3-8.2) g/dL Albumin (3.8-4.9) g/dL Albumin/Globulin Ratio (1.60-3.17) Ratio 04/01/24 Range/Units 02:43 WBC (3.8-10.6) k/uL RBC (4.40-5.60) X 10*6/uL Hgb (13.0-17.0) g/dL Hct (39.6-50.0) % Plt Count (140-440) X 10*3/uL MPV (9.5-12.2) FL Immature Gran # (0.00-0.04) X 10*3/uL Neutrophils # (1.3-7.7) k/uL Monocytes # (0.20-1.00) X 10*3/uL Eosinophils # (0.04-0.35) X 10*3/uL Carbon Dioxide 19.9 L (21.6-31.8) mmol/L Creatinine (0.66-1.25) mg/dL Glucose 128 H (70-110) mg/dL Calcium 7.8 L (8.7-10.3) mg/dL ALT (4-49) U/L C-Reactive Protein (<1.0) mg/dL Total Protein 5.9 L (6.3-8.2) g/dL Albumin 3.4 L (3.8-4.9) g/dL Albumin/Globulin Ratio 1.36 L (1.60-3.17) Ratio
[2024-04-01] MEDS: KETOTIFEN 0.025% OPHTH DROPS 5 ML BTL BOTH EYES SCH (13:46)
--- NOTE | 2024-04-02 07:09 | P.CONS ---
History of Present Illness - Reason for Consult Consult date: 04/01/24 Acute sinusitis/immunocompromised Requesting physician: Freeman Lawrence - Chief Complaint Sinus pressure discomfort and fever x days - History of Present Illness Patient is a 38-year-old male with a past medical history significant for Crohn's disease in this patient was status post colectomy and did have ileostomy presenting to the hospital for evaluation of 5 days of high fever also complaining of increasing pain to bilateral sinus area with congestion patient mention his sinus symptom has been going on for almost a month and apparently he was evaluated in [facility] on March 26, 2024 and did have a sputum culture done which subsequently was positive for MRSA patient now presenting to the hospital with marked URI symptoms specially with a sinus pressure and discomfort moderate intensity and has some purulent sinus drainage also complaining of bilateral eyes congestion and irritation patient also complaining of headache mild to moderate intensity denies having any chest pain or shortness of breath did have mild cough some nausea but no vomiting no abdominal pain or any worsening output through his ileostomy or visitation the hospital patient was afebrile no fever have been recorded subsequently patient was not tachycardic hypotensive or hypoxic he did have a white low 13.9 with a left shift creatinine 0.60 electrolytes in the normal liver enzymes ALT is mildly elevated no blood cultures were done patient was started on vancomycin infectious disease was consulted for further management of antibiotic therapy patient did have a chest x-ray that was negative for acute pulmonary process CT of the face acute right maxillary sinus disease suspected no suspicious bony destruction Review of Systems Positive point and negatives has been mentioned in the HPI, complete review of systems was performed and all other systems are negative Past Medical History Past Medical History: Skin Disorder Additional Past Medical History / Comment(s): OSTEOMYELITIS, CROHNS SINCE AGE 9, PICC LINE INFECTIONS AND SEPSIS, psoriasis, atopic dermatitis, cellulitis, elevated liver enzymes. History of Any Multi-Drug Resistant Organisms: MRSA Year Discovered:: 03/26/24 MDRO Source:: sputum Past Surgical History: Bowel Resection, Orthopedic Surgery Additional Past Surgical History / Comment(s): ORIF distal radius with pinning- since removed, R wrist surgical site infection with I&D/picc line, 2 other I&Ds of R wrist, pt states that he has no large intestine (CROHNS), COLOSTOMY, scrotal surgery d/t torsion, colonoscopies. Past Anesthesia/Blood Transfusion Reactions: No Reported Reaction Additional Past Anesthesia/Blood Transfusion Reaction / Comm: HAS RECIEVED PLATELETS IN PAST. Past Psychological History: No Psychological Hx Reported Smoking Status: Current some day smoker Past Alcohol Use History: None Reported Past Drug Use History: None Reported - Past Family History Father Family Medical History: Cancer Additional Family Medical History / Comment(s): skin cancer. worked as batt machine operator and was shot in head but survived Mother Family Medical History: No Reported History Additional Family Medical History / Comment(s): skin cancer Medications and Allergies Home Medications Medication Instructions Recorded Confirmed Type Omeprazole [PriLOSEC] 20 mg PO BID 06/09/14 03/31/24 History Amoxic-Pot Clav 875-125Mg 1 tab PO Q12HR #20 tab 03/26/24 03/31/24 Rx [Augmentin 875-125] Ibuprofen [Motrin Ib] 600 mg PO Q6H PRN 03/31/24 03/31/24 History Risankizumab-Rzaa [Skyrizi On-Body] 360 mg SQ Q56D 03/31/24 03/31/24 History oxyCODONE HCL [OxyIR] 5 mg PO TID PRN 03/31/24 03/31/24 History Allergies Allergy/AdvReac Type Severity Reaction Status Date / Time Sulfa (Sulfonamide Allergy MENINGITIS Verified 03/31/24 12:32 Antibiotics) Physical Exam Vitals: Vital Signs Temp Pulse Pulse Pulse Resp BP BP 04/01/24 07:26 98.1 F 59 L 17 110/79 04/01/24 02:00 97.8 F 74 17 117/74 03/31/24 19:51 98.4 F 80 17 133/87 03/31/24 17:13 98.4 F 90 16 153/93 03/31/24 12:30 98.4 F 82 18 144/98 Pulse Ox 04/01/24 07:26 96 04/01/24 02:00 98 03/31/24 19:51 97 03/31/24 17:13 96 03/31/24 12:30 99 Intake and Output 03/31/24 04/01/24 04/01/24 22:59 06:59 14:59 Other: # Voids 3 GENERAL DESCRIPTION: Middle-aged male lying in bed, no distress. No tachypnea or accessory muscle of respiration use. HEENT: Bilateral conjunctival congestion , no scleral icterus. Oral mucous m embrane is dry. Sinus congestion NECK: Trachea central, no thyromegaly. LUNGS: Unlabored breathing. Clear to auscultation anteriorly. No wheeze or crackle. HEART: S1, S2, regular rate and rhythm. No loud murmur ABDOMEN: Soft, no tenderness , guarding or rigidity, no organomegaly EXTREMITIES: No edema of feet. SKIN: No rash, no masses palpable. NEUROLOGICAL: The patient is awake, alert, oriented x3, mood and affect normal. Results CBC & Chem 7: 04/02/24 03:23 04/02/24 09:19 Labs: Abnormal Lab Results - Last 24 Hours (Table) 03/31/24 03/31/24 04/01/24 Range/Units 14:21 14:21 02:43 WBC 13.9 H 11.26 H (3.8-10.6) k/uL RBC 4.22 L (4.40-5.60) X 10*6/uL Hgb 12.6 L (13.0-17.0) g/dL Hct 37.4 L (39.6-50.0) % Plt Count 138 L (140-440) X 10*3/uL MPV 9.4 L (9.5-12.2) FL Immature Gran # 0.06 H (0.00-0.04) X 10*3/uL Neutrophils # 8.1 H (1.3-7.7) k/uL Monocytes # 1.18 H (0.20-1.00) X 10*3/uL Eosinophils # 0.38 H (0.04-0.35) X 10*3/uL Carbon Dioxide (21.6-31.8) mmol/L Creatinine 0.60 L (0.66-1.25) mg/dL Glucose (70-110) mg/dL Calcium (8.7-10.3) mg/dL ALT 72 H (4-49) U/L C-Reactive Protein 2.0 H (<1.0) mg/dL Total Protein 8.7 H (6.3-8.2) g/dL Albumin (3.8-4.9) g/dL Albumin/Globulin Ratio (1.60-3.17) Ratio 04/01/24 Range/Units 02:43 WBC (3.8-10.6) k/uL RBC (4.40-5.60) X 10*6/uL Hgb (13.0-17.0) g/dL Hct (39.6-50.0) % Plt Count (140-440) X 10*3/uL MPV (9.5-12.2) FL Immature Gran # (0.00-0.04) X 10*3/uL Neutrophils # (1.3-7.7) k/uL Monocytes # (0.20-1.00) X 10*3/uL Eosinophils # (0.04-0.35) X 10*3/uL Carbon Dioxide 19.9 L (21.6-31.8) mmol/L Creatinine (0.66-1.25) mg/dL Glucose 128 H (70-110) mg/dL Calcium 7.8 L (8.7-10.3) mg/dL ALT (4-49) U/L C-Reactive Protein (<1.0) mg/dL Total Protein 5.9 L (6.3-8.2) g/dL Albumin 3.4 L (3.8-4.9) g/dL Albumin/Globulin Ratio 1.36 L (1.60-3.17) Ratio Assessment and Plan (1) Maxillary sinusitis, acute Current Visit: Yes Status: Acute Code(s): J01.00 - ACUTE MAXILLARY SINUSITIS, UNSPECIFIED SNOMED Code(s): 28795818 (2) Leukocytosis Current Visit: Yes Status: Acute Code(s): D72.829 - ELEVATED WHITE BLOOD CELL COUNT, UNSPECIFIED SNOMED Code(s): 872188505 Plan: 1patient presented to hospital with sinus congestion purulent drainage then developed fever with a recent sputum positive for MRSA however chest x-ray was reported negative patient also have CT of the face which shows acute right maxillary sinusitis with no evidence of any bony destruction 2-we will obtain nasal swab for MRSA/MSSA 3-vancomycin pharmacy to dose target trough of 15 while watching kidney function and Vanco trough closely We will follow on clinical condition and cultures to further adjust medication if needed Thank you for this consultation we will follow the patient along with you Dictation was produced using [employer] software. please excuse any gram matical, word or spelling errors. Time with Patient: Greater than 30
[2024-04-02 09:13] LABS: Basophils # (A) 0.03 X 10*3/uL (0.00-0.10); Basophils % (A) 0.3 %; Eosinophils # (A) 0.41 X 10*3/uL (0.04-0.35); Eosinophils % (A) 4.7 %; HCT 35.8 % (39.6-50.0); HGB 11.8 g/dL (13.0-17.0); Lymphocytes # (A) 3.29 X 10*3/uL (0.90-5.00); Lymphocytes % (A) 37.8 %; MCH 29.6 pg (27.0-32.0); MCV 89.9 FL (80.0-97.0); Mean Platelet Volume 8.9 FL (9.5-12.2); Monocytes # (A) 1.05 X 10*3/uL (0.20-1.00); Monocytes % (A) 12.1 %; NRBC Per 100 WBC 0 X 10*3/uL (0.00-0.01); Neutrophils # (A) 3.89 X 10*3/uL (1.80-7.70); Neutrophils % (A) 44.8 %; Platelet Count 149 X 10*3/uL (140-440); RBC 3.98 X 10*6/uL (4.40-5.60)
[2024-04-02 10:00] LABS: African American GFR (CKD) >90 (>60 ml/min/1.73 sqM); Anion Gap 8 mmol/L; Blood Urea Nitrogen 7 mg/dL (9-20); Calcium 8.5 mg/dL (8.4-10.2); Carbon Dioxide 21 mmol/L (22-30); Chloride 109 mmol/L (98-107); Glucose 147 mg/dL (74-99); Non-African American GFR(CKD) >90 (>60 ml/min/1.73 sqM); Potassium 4.2 mmol/L (3.5-5.1); Sodium 138 mmol/L (137-145)
[2024-04-02] MEDS: VANCOMYCIN TROUGH DUE 1 EACH MISC MISCELLANE ONE (10:30)
[2024-04-02] MEDS: VANCOMYCIN 1,500 MG in SODIUM CHLORIDE 0.9% 500 ML 500 ML IVPB SCH (11:41)
--- NOTE | 2024-04-02 12:23 | P.PN ---
Subjective Progress Note Date: 04/02/24 Hospital Course: 38-year-old male with Crohn's disease presenting with upper respiratory sympto ms. Patient was previously positive for MRSA. In the ED, temperature was 98.4, pulse 82, respiratory rate 18, blood pressure 144/98, saturating at 99% on room air. Chest x-ray did not show any acute process. WBC 13.9, hemoglobin 15.3, creatinine 0.6. Patient started on IV vancomycin. Was also given 1.5 L of normal saline in the ED. Pulmonology also consulted. Face CT showed acute right maxillary sinus disease. ID consulted. Patient continued on IV vancomycin. Subjective: Patient seen and examined at bedside. No acute events overnight. Eye discomfort has improved Pertinent positives and negatives as discussed above, a complete review of systems was performed and all other systems are negative. Vitals Signs Reviewed. General: Nontoxic, no distress, appears at stated age Derm: Warm, dry Head: Atraumatic, normocephalic, symmetric, Sinus tenderness to palpation Eyes: EOMI, no lid lag, anicteric sclera, bilateral conjunctivitis Mouth: No lip lesion, mucus membranes moist Cardiovascular: S1S2 reg, no murmur Lungs: CTA bilateral, no rhonchi, no rales, no accessory muscle use Abdominal: Soft, nontender to palpation, no guarding, no appreciable organomegaly Ext: No gross muscle atrophy, no edema, no contractures Neuro: CN II-XI grossly intact, no focal neuro deficits Psych: Alert, oriented, appropriate affect Data Reviewed Today: Pertinent Labs: WBC 11.26, hemoglobin 12.6, creatinine 0.6, procalcitonin 0.36 Imaging: Face CT shows acute right maxillary sinus disease, chest x-ray independently interpreted did not show any acute process Assessment and Plan: Active: Acute right maxillary sinusitis Leukocytosis Positive MRSA throat cultures Bilateral conjunctivitis, likely allergic -Pulmonology following, recommend ENT consult, no ENT available -ID following, MRSA nares pending -Continue IV vancomycin, monitor for renal toxicity -Continue on artificial tears, as well as Ketotifen ophthalmic solution -Conjunctivitis improving Chronic: Crohn's disease GERD DVT ppx: Lovenox Code status: Full code Anticipated discharge place: Home Anticipated discharge time: Pending clinical course Objective - Vital Signs Vital signs: Vital Signs Temp 98.2 F 04/02/24 07:09 Pulse 64 04/02/24 07:09 Resp 17 04/02/24 07:09 BP 128/82 04/02/24 07:09 Pulse Ox 98 04/02/24 07:09 FiO2 Intake & Output 04/01/24 04/02/24 04/02/24 18:59 06:59 18:59 Intake Total 2262 Balance 2262 Intake: Oral 2262 Other: # Voids 2 5 - Labs CBC & Chem 7: 04/02/24 03:23 04/02/24 09:19 Labs: Abnormal Lab Results - Last 24 Hours (Table) 04/02/24 04/02/24 Range/Units 03:23 09:19 RBC 3.98 L (4.40-5.60) X 10*6/uL Hgb 11.8 L (13.0-17.0) g/dL Hct 35.8 L (39.6-50.0) % MPV 8.9 L (9.5-12.2) FL Monocytes # 1.05 H (0.20-1.00) X 10*3/uL Eosinophils # 0.41 H (0.04-0.35) X 10*3/uL Chloride 109 H (98-107) mmol/L Carbon Dioxide 21 L (22-30) mmol/L BUN 7 L (9-20) mg/dL Creatinine 0.59 L (0.66-1.25) mg/dL Glucose 147 H (74-99) mg/dL
--- NOTE | 2024-04-02 14:20 | P.PN ---
Subjective Progress Note Date: 04/02/24 Patient is a 38-year-old male with past medical history significant for Crohn's disease, psoriasis, among other things. PCP is Dr. Heck. He is on Biologics for his Crohn's disease. Previously maintained on Inflectra and Dupixent which have been stopped, and the patient has been started on Skyrizi by the direction of her personal banking officer. His Crohn's is reportedly well under control at this time. Patient does have frequent infections and staph infections. Of note, patient did have a COVID infection approximately 1 month ago. Following this developed sinus pressure, yellow nasal drainage, postnasal drip, and intermittent high fevers. Denies sore throat, dysphagia, or voice hoarseness. He also has significant eye redness and blurry vision. Denies any significant drainage or eye pain. Also, admits left ear fullness and tenderness. He was previously treated outpatient with Keflex then Augmentin. No improvement in symptoms. Per ER note, he did have a throat culture positive for MRSA on 03/26. He is allergic to sulfa antibiotics and Bactrim. He was admitted in the emergency department for IV vancomycin. He denies any difficulty in breathing, cough, or sputum production. Chest x-ray was unremarkable for any acute infiltrates or pneumonia. He denies any pre-existing lung disease. Facial CT remarkable for acute right maxillary sinusitis. CBC is remarkable for leukocytosis with a WBC count of 13.9. CMP is unremarkable, electrolytes within defined limits, creatinine 0.6. Previous viral screen negative for influenza, RSV, COVID on ER visit 03/26. Most recent vital signs: Temperature 97.8 F, nontachypneic, SpO2 98% on room air, heart rate 74 bpm, blood pressure 117/74 mmHg. Patient is currently being evaluated on the general medical floor, he is in no acute respiratory distress. Nontoxic appearance. The patient is seen today April 02, 2024 in follow-up on the regular medical floor. He is currently sitting up in bed. Awake and alert in no acute distress. Feeling a bit better today compared to yesterday. Maintaining good O2 saturations in the 90s on room air. He has been afebrile. Hemodynamically stable. White count 8.7. Hemoglobin 11.8. Platelets 149. Sodium 138. Potassium 4.2. Bicarb 21. BUN 7. Creatinine 0.59. Glucose 147. Vancomycin 21.6. He is being treated for MRSA positive throat culture on 03/26/2024. Blood culture had revealed no growth. He remains on vancomycin. Lovenox for DVT prophylaxis. Objective - Vital Signs Vital signs: Vital Signs Temp 98.1 F 04/02/24 13:11 Pulse 58 L 04/02/24 13:11 Resp 18 04/02/24 13:11 BP 129/83 04/02/24 13:11 Pulse Ox 98 04/02/24 13:11 FiO2 Intake & Output 04/01/24 04/02/24 04/02/24 18:59 06:59 18:59 Intake Total 2262 Balance 2262 Intake: Oral 2262 Other: # Voids 2 5 3 - Exam GENERAL EXAM: Alert, 38-year-old obese male, on room air, comfortable in no apparent distress. HEAD: Normocephalic and atraumatic EYES: Normal reaction of pupils, equal size. NOSE: Erythemic turbinates, yellow drainage THROAT: No erythema or exudates. NECK: No masses, no JVD. CHEST: No chest wall deformity. LUNGS: Equal air entry with bibasilar inspiratory crackles. No wheeze, rhonchi or dullness. CVS: S1 and S2 normal with no audible murmur, regular rhythm. No extra heart sounds ABDOMEN: No hepatosplenomegaly, active bowel sounds, no guarding or rigidity. SPINE: No scoliosis or deformity SKIN: No rashes CENTRAL NERVOUS SYSTEM: No focal deficits, tone is normal in all 4 extremities. EXTREMITIES: There is no peripheral edema, clubbing, or cyanosis. Peripheral pulses are intact. - Labs CBC & Chem 7: 04/02/24 03:23 04/02/24 09:19 Labs: Abnormal Lab Results - Last 24 Hours (Table) 04/02/24 04/02/24 Range/Units 03:23 09:19 RBC 3.98 L (4.40-5.60) X 10*6/uL Hgb 11.8 L (13.0-17.0) g/dL Hct 35.8 L (39.6-50.0) % MPV 8.9 L (9.5-12.2) FL Monocytes # 1.05 H (0.20-1.00) X 10*3/uL Eosinophils # 0.41 H (0.04-0.35) X 10*3/uL Chloride 109 H (98-107) mmol/L Carbon Dioxide 21 L (22-30) mmol/L BUN 7 L (9-20) mg/dL Creatinine 0.59 L (0.66-1.25) mg/dL Glucose 147 H (74-99) mg/dL Assessment and Plan Assessment: Acute right maxillary sinusitis, per facial CT Throat culture positive for MRSA Bilateral conjunctivitis Crohn's disease, maintained on Biologics, currently on Skyrizi Reported recent COVID infection, no pulmonary symptoms at this time History of psoriasis History of osteomyelitis Obesity, with a BMI of 34.2 kg/m Plan: The patient was seen and evaluated Labs and medications reviewed Currently on vancomycin Could be transitioned to Zyvox Recommend 600 mg twice daily for 7 more days Cleared for discharge I have personally seen and examined the patient, performed the documentation and the assessment and plan as written. Number of minutes spent on the visit: 10 Dictation was produced using [employer] dictation software. Please excuse any grammatical, word or spelling errors. This patient was seen in coordination with the pulmonary/critical care physician, Dr. Conrad. He did spend greater than 50% of the time evaluating, examining and developing the plan of care. He agrees to the above HPI, physical exam, assessment and plan of care as dictated by the nurse practitioner.
--- NOTE | 2024-04-02 15:58 | P.PN ---
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 On today's evaluation that is 04/02/2024,the patient denies any fever or any chills, patient is breathing comfortably on room air, the patient denies chest pain shortness of breath and no significant cough, patient denies abdominal pain, no nausea vomiting or diarrhea. Patient mention improvement in his upper airway congestion as well as sinus pressure. Patient white count normalized to 8.70, creatinine 0.59 sputum MRSA screen currently pending Objective - Vital Signs Vital signs: Vital Signs Temp 98.1 F 04/02/24 13:11 Pulse 58 L 04/02/24 13:11 Resp 18 04/02/24 13:11 BP 129/83 04/02/24 13:11 Pulse Ox 98 04/02/24 13:11 FiO2 Intake & Output 04/01/24 04/02/24 04/02/24 18:59 06:59 18:59 Intake Total 2262 Balance 2262 Intake: Oral 2262 Other: # Voids 2 5 3 - Exam GENERAL DESCRIPTION: An elderly male lying in bed in no distress HEENT: Facial swelling and erythema has improved RESPIRATORY SYSTEM: Unlabored breathing , decreased breath sounds at bases HEART: S1 S2 regular rate and rhythm , ABDOMEN: Soft , no tenderness EXTREMITIES: No edema feet - Labs CBC & Chem 7: 04/02/24 03:23 04/02/24 09:19 Labs: Abnormal Lab Results - Last 24 Hours (Table) 04/02/24 04/02/24 Range/Units 03:23 09:19 RBC 3.98 L (4.40-5.60) X 10*6/uL Hgb 11.8 L (13.0-17.0) g/dL Hct 35.8 L (39.6-50.0) % MPV 8.9 L (9.5-12.2) FL Monocytes # 1.05 H (0.20-1.00) X 10*3/uL Eosinophils # 0.41 H (0.04-0.35) X 10*3/uL Chloride 109 H (98-107) mmol/L Carbon Dioxide 21 L (22-30) mmol/L BUN 7 L (9-20) mg/dL Creatinine 0.59 L (0.66-1.25) mg/dL Glucose 147 H (74-99) mg/dL Assessment and Plan (1) Maxillary sinusitis, acute Current Visit: Yes Status: Acute Code(s): J01.00 - ACUTE MAXILLARY SINUSITIS, UNSPECIFIED SNOMED Code(s): 07630541 (2) Leukocytosis Current Visit: Yes Status: Acute Code(s): D72.829 - ELEVATED WHITE BLOOD CELL COUNT, UNSPECIFIED SNOMED Code(s): 695486054 Plan: 1patient presented to hospital with sinus congestion purulent drainage then developed fever with a recent sputum positive for MRSA however chest x-ray was reported negative patient also have CT of the face which shows acute right maxillary sinusitis with no evidence of any bony destruction 2-currently waiting for nasal swab for MRSA/MSSA to be finalized 3-patient has subclinical probable continue with vancomycin pharmacy to dose target trough of 15 while watching kidney function and Vanco trough closely Dictation was produced using [employer] dictation software. please excuse any grammatical, word or spelling errors. Time with Patient: Less than 30
[2024-04-03 08:01] VITALS: BP 112/72; PULSE 72; RESP 18; TEMP 99.3
[2024-04-03 09:22] LABS: Blood Urea Nitrogen 7.5 mg/dL (9.0-27.0); Calcium 8.2 mg/dL (8.7-10.3); Carbon Dioxide 21.3 mmol/L (21.6-31.8); Chloride 108 mmol/L (96-109); Glucose 118 mg/dL (70-110); Potassium 4.1 mmol/L (3.5-5.5); Sodium 140 mmol/L (135-145)
--- NOTE | 2024-04-03 12:06 | P.DS ---
Providers Date of admission: 03/31/24 14:04 Expected date of discharge: 04/03/24 Attending physician: Savannah Kasper MD Consults: 03/31/24 14:03 Consult Physician Routine Consulting Provider: Vickey Conrad Consult Reason/Comments: pna Do you want consulting provider notified?: Yes 04/01/24 03:10 Consult Physician Routine Consulting Provider: Gregorio Hull Consult Reason/Comments: Acute Sinusitis; Positive MRSA Do you want consulting provider notified?: Yes 04/01/24 10:49 Consult Physician Routine Consulting Provider: Aly Lund Consult Reason/Comments: Sinusitis, immunocompromised, MRSA positive Do you want consulting provider notified?: Yes Primary care physician: Lizzie Heck MD Hospital Course: Discharge Diagnosis: Acute right maxillary sinusitis Leukocytosis Bilateral conjunctivitis, likely allergic Crohn's disease GERD Hospital Course: 38-year-old male with Crohn's disease presenting with upper respiratory symptoms. Patient was previously positive for MRSA. In the ED, temperature was 98.4, pulse 82, respiratory rate 18, blood pressure 144/98, saturating at 99% on room air. Chest x-ray did not show any acute process. WBC 13.9, hemoglobin 15.3, creatinine 0.6. Patient started on IV vancomycin. Was also given 1.5 L of normal saline in the ED. Pulmonology also consulted. Face CT showed acute right maxillary sinus disease. ID consulted. Patient continued on IV vancomycin. MRSA nares negative for MRSA. Patient being discharged on oral linezolid. Allergic conjunctivitis improved with drops. Follow-up outpatient with PCP, ENT and ophthalmology. Patient seen and examined at bedside. Vital signs reviewed and stable. General: Nontoxic, no distress, appears at stated age Derm: Warm, dry Head: Atraumatic, normocephalic, symmetric, Sinus tenderness to palpation Eyes: EOMI, no lid lag, anicteric sclera, bilateral conjunctivitis Mouth: No lip lesion, mucus membranes moist Cardiovascular: S1S2 reg, no murmur Lungs: CTA bilateral, no rhonchi, no rales, no accessory muscle use Abdominal: Soft, nontender to palpation, no guarding, no appreciable organomegaly Ext: No gross muscle atrophy, no edema, no contractures Neuro: CN II-XI grossly intact, no focal neuro deficits Psych: Alert, oriented, appropriate affect A total of 36 minutes of time were spent preparing this complex discharge summary. Patient was discharged on 04/03/2024 at 1204. Patient Condition at Discharge: Stable Plan - Discharge Summary Discharge Rx Participant: No New Discharge Prescriptions: New Linezolid [Zyvox] 600 mg PO Q12H 10 Days #20 tab Continue Omeprazole [PriLOSEC] 20 mg PO BID oxyCODONE HCL [OxyIR] 5 mg PO TID PRN PRN Reason: Pain Risankizumab-Rzaa [Skyrizi On-Body] 360 mg SQ Q56D Ibuprofen [Motrin Ib] 600 mg PO Q6H PRN PRN Reason: Fever Discontinued Amoxic-Pot Clav 875-125Mg [Augmentin 875-125] 1 tab PO Q12HR #20 tab Discharge Medication List Omeprazole [PriLOSEC] 20 mg PO BID 06/09/14 [History] Ibuprofen [Motrin Ib] 600 mg PO Q6H PRN 03/31/24 [History] Risankizumab-Rzaa [Skyrizi On-Body] 360 mg SQ Q56D 03/31/24 [History] oxyCODONE HCL [OxyIR] 5 mg PO TID PRN 03/31/24 [History] Linezolid [Zyvox] 600 mg PO Q12H 10 Days #20 tab 04/03/24 [Rx] Follow up Appointment(s)/Referral(s): Gregorio Hull DO [Doctor of Osteopathic Medicine] - 1 Week Lizzie Heck MD [Primary Care Provider] - 1-2 days Patient Instructions/Handouts: Rhinosinusitis (DC) Activity/Diet/Wound Care/Special Instructions: Please see PCP and ENT. Also see an parcel wrapper. Discharge Disposition: HOME SELF-CARE
--- NOTE | 2024-04-03 14:18 | P.PN ---
Subjective Progress Note Date: 04/03/24 Patient is a 38-year-old male with past medical history significant for Crohn's disease, psoriasis, among other things. PCP is Dr. Heck. He is on Biologics for his Crohn's disease. Previously maintained on Inflectra and Dupixent which have been stopped, and the patient has been started on Skyrizi by the direction of her construction person. His Crohn's is reportedly well under control at this time. Patient does have frequent infections and staph infections. Of note, patient did have a COVID infection approximately 1 month ago. Following this developed sinus pressure, yellow nasal drainage, postnasal drip, and intermittent high fevers. Denies sore throat, dysphagia, or voice hoarseness. He also has significant eye redness and blurry vision. Denies any significant drainage or eye pain. Also, admits left ear fullness and tenderness. He was previously treated outpatient with Keflex then Augmentin. No improvement in symptoms. Per ER note, he did have a throat culture positive for MRSA on 03/26. He is allergic to sulfa antibiotics and Bactrim. He was admitted in the emergency department for IV vancomycin. He denies any difficulty in breathing, cough, or sputum production. Chest x-ray was unremarkable for any acute infiltrates or pneumonia. He denies any pre-existing lung disease. Facial CT remarkable for acute right maxillary sinusitis. CBC is remarkable for leukocytosis with a WBC count of 13.9. CMP is unremarkable, electrolytes within defined limits, creatinine 0.6. Previous viral screen negative for influenza, RSV, COVID on ER visit 03/26. Most recent vital signs: Temperature 97.8 F, nontachypneic, SpO2 98% on room air, heart rate 74 bpm, blood pressure 117/74 mmHg. Patient is currently being evaluated on the general medical floor, he is in no acute respiratory distress. Nontoxic appearance. The patient is seen today April 02, 2024 in follow-up on the regular medical floor. He is currently sitting up in bed. Awake and alert in no acute distress. Feeling a bit better today compared to yesterday. Maintaining good O2 saturations in the 90s on room air. He has been afebrile. Hemodynamically stable. White count 8.7. Hemoglobin 11.8. Platelets 149. Sodium 138. Potassium 4.2. Bicarb 21. BUN 7. Creatinine 0.59. Glucose 147. Vancomycin 21.6. He is being treated for MRSA positive throat culture on 03/26/2024. Blood culture had revealed no growth. He remains on vancomycin. Lovenox for DVT prophylaxis. The patient is seen today April 03, 2024 in follow-up on the regular medical floor. He is awake and alert in no acute distress. Sitting up in bed. Denies any worsening shortness of breath, cough or congestion. Maintaining good O2 saturations in the 90s on room air. He is continued on vancomycin for his MRSA infection. Lovenox for DVT prophylaxis. Sodium 140. Potassium 4.1. Bicarb 21. BUN 8. Creatinine 0.5. Glucose 118. Objective - Vital Signs Vital signs: Vital Signs Temp 99.3 F 04/03/24 07:07 Pulse 72 04/03/24 07:07 Resp 18 04/03/24 07:07 BP 112/72 04/03/24 07:07 Pulse Ox 96 04/03/24 07:07 FiO2 Intake & Output 04/02/24 04/03/24 04/03/24 18:59 06:59 18:59 Other: # Voids 3 1 - Exam GENERAL EXAM: Alert, 38-year-old male, sitting up in bed, on room air, comf ortable in no apparent distress. HEAD: Normocephalic and atraumatic EYES: Normal reaction of pupils, equal size. NOSE: Erythemic turbinates, yellow drainage THROAT: No erythema or exudates. NECK: No masses, no JVD. CHEST: No chest wall deformity. LUNGS: Equal air entry with bibasilar inspiratory crackles. No wheeze, rhonchi or dullness. CVS: S1 and S2 normal with no audible murmur, regular rhythm. No extra heart sounds ABDOMEN: No hepatosplenomegaly, active bowel sounds, no guarding or rigidity. SPINE: No scoliosis or deformity SKIN: No rashes CENTRAL NERVOUS SYSTEM: No focal deficits, tone is normal in all 4 extremities. EXTREMITIES: There is no peripheral edema, clubbing, or cyanosis. Peripheral pulses are intact. - Labs CBC & Chem 7: 04/02/24 03:23 04/03/24 04:19 Labs: Abnormal Lab Results - Last 24 Hours (Table) 04/03/24 Range/Units 04:19 Carbon Dioxide 21.3 L (21.6-31.8) mmol/L BUN 7.5 L (9.0-27.0) mg/dL Creatinine 0.5 L (0.6-1.5) mg/dL Glucose 118 H (70-110) mg/dL Calcium 8.2 L (8.7-10.3) mg/dL Microbiology - Last 24 Hours (Table) 04/01/24 13:40 Nasal Screen MRSA/MSSA - Final Nasal Swab Assessment and Plan Assessment: Acute right maxillary sinusitis, per facial CT Throat culture positive for MRSA Bilateral conjunctivitis Crohn's disease, maintained on Biologics, currently on Skyrizi Reported recent COVID infection, no pulmonary symptoms at this time History of psoriasis History of osteomyelitis Obesity, with a BMI of 34.2 kg/m Plan: The patient was seen and evaluated Labs and medications reviewed Should be transitioned to Zyvox Recommend 600 mg twice daily for 6 more days Cleared for discharge I have personally seen and examined the patient, performed the documentation and the assessment and plan as written. Number of minutes spent on the visit: 10 Dictation was produced using [employer] dictation software. Please excuse any grammatical, word or spelling errors. This patient was seen in coordination with the pulmonary/critical care physician, Dr. Conrad. He did spend greater than 50% of the time evaluating, examining and developing the plan of care. He agrees to the above HPI, physical exam, assessment and plan of care as dictated by the nurse practitioner.
--- NOTE | 2024-04-03 14:26 | P.PN ---
Subjective Progress Note Date: 04/03/24 Principal diagnosis: Reason for follow-up is maxillary sinusitis with recent MRSA Patient is a 38-year-old male with a past medical history significant for Crohn's disease in this patient was status post colectomy and did have ileostomy presenting to the hospital for evaluation of 5 days of high fever also complaining of increasing pain to bilateral sinus area with congestion patient did have a CT of the face suggestive of acute right maxillary sinus disease with recent sputum positive for MRSA. On today's evaluation that is 04/03/2024,the patient remains to be afebrile, patient is on room air not requiring supplemental oxygen and denies any shortness of breath no chest pain or cough.Patient denies having any nausea or vomiting, no abdominal pain and no diarrhea has been reported, patient mention improvement in his sinus pressure and no purulent drainage feeling better wants to go home. Patient creatinine 0.5 MRSA nasal screen came back negative however he recently did have a sputum culture positive for MRSA on 03/26/2024 that was resistant to tetracycline Objective - Vital Signs Vital signs: Vital Signs Temp 99.3 F 04/03/24 07:07 Pulse 72 04/03/24 07:07 Resp 18 04/03/24 07:07 BP 112/72 04/03/24 07:07 Pulse Ox 96 04/03/24 07:07 FiO2 Intake & Output 04/02/24 04/03/24 04/03/24 18:59 06:59 18:59 Other: # Voids 3 1 - Exam GENERAL DESCRIPTION: An elderly male lying in bed in no distress HEENT: Facial swelling and erythema has improved RESPIRATORY SYSTEM: Unlabored breathing , decreased breath sounds at bases HEART: S1 S2 regular rate and rhythm , ABDOMEN: Soft , no tenderness EXTREMITIES: No edema feet - Labs CBC & Chem 7: 04/02/24 03:23 04/03/24 04:19 Labs: Abnormal Lab Results - Last 24 Hours (Table) 04/03/24 Range/Units 04:19 Carbon Dioxide 21.3 L (21.6-31.8) mmol/L BUN 7.5 L (9.0-27.0) mg/dL Creatinine 0.5 L (0.6-1.5) mg/dL Glucose 118 H (70-110) mg/dL Calcium 8.2 L (8.7-10.3) mg/dL Microbiology - Last 24 Hours (Table) 04/01/24 13:40 Nasal Screen MRSA/MSSA - Final Nasal Swab Assessment and Plan (1) Maxillary sinusitis, acute Status: Acute Code(s): J01.00 - ACUTE MAXILLARY SINUSITIS, UNSPECIFIED SNOMED Code(s): 67603449 (2) Leukocytosis Status: Acute Code(s): D72.829 - ELEVATED WHITE BLOOD CELL COUNT, UNSPECIFIED SNOMED Code(s): 454879602 Plan: 1patient presented to hospital with sinus congestion purulent drainage then developed fever with a recent sputum positive for MRSA however chest x-ray was reported negative patient also have CT of the face which shows acute right maxillary sinusitis with no evidence of any bony destruction 2- nasal swab for MRSA/MSSA came back negative however the patient did have a recent sputum culture positive for MRSA that was resistant to tetracycline 3-patient has shown clinical improvement on vancomycin we will recommend a 10- day course of oral Zyvox on discharge patient did agree with the plan and also discussed with the admitting physician Dictation was produced using [employer] dictation software. please excuse any grammatical, word or spelling errors. Time with Patient: Less than 30
[2024-04-04] MEDS ORDERED: VANCOMYCIN TROUGH DUE 1 EACH MISC MISCELLANE ONE (11:00)
== END 2024-04-03 14:24 | disposition home or self-care (01) | DRG 153 ==
LOC: EC 12:24 → 4SSUR 14:04
PROVIDERS: ADMIT Internal Medicine; ATTEND Internal Medicine
DX: J01.00 Acute maxillary sinusitis, unspecified (principal); D84.9 Immunodeficiency, unspecified; K50.90 Crohn's disease, unspecified, without complications; Z16.29 Resistance to other single specified antibiotic; E66.9 Obesity, unspecified; K21.9 Gastro-esophageal reflux disease without esophagitis; H10.13 Acute atopic conjunctivitis, bilateral; J32.0 Chronic maxillary sinusitis; L40.9 Psoriasis, unspecified; F17.210 Nicotine dependence, cigarettes, uncomplicated; Z68.34 Body mass index [BMI] 34.0-34.9, adult; Z86.14 Personal history of Methicillin resistant Staphylococcus aureus infection; Z86.16 Personal history of COVID-19; Z88.2 Allergy status to sulfonamides; Z90.49 Acquired absence of other specified parts of digestive tract; Z87.19 Personal history of other diseases of the digestive system
CPT/HCPCS: 36415; 70487; 71046; 80048; 80053; 80202; 83605; 83735; 84100; 84145; 85025; 86140; 87070; 96374; 96375; 99284

== ENCOUNTER 2024-08-06 09:43 | Emergency (ER) | payer MEDICARE ==
[2024-08-06 09:47] VITALS: RESP 18
--- NOTE | 2024-08-06 10:19 | ED ---
ENT HPI - General Chief complaint: Dental/Oral Stated complaint: Lump in Mouth Time Seen by Provider: 08/06/24 10:03 Source: patient, RN notes reviewed Mode of arrival: ambulatory Limitations: no limitations - History of Present Illness Initial comments: 38-year-old male with history of Crohn's disease on immunologic therapy presenting to emergency department for complaints of left-sided facial swelling that started yesterday evening at 1800. States the pain is worsened and is concerned that he may have a intraoral infection. He denies difficulty in breathing, swallowing, chest pain, or palpitations. Patient states that he has an active Crohn's flare and has been experiencing low-grade fevers over the past month although this fevers have not worsened since the intraoral infection started. He states that he does have a history of MRSA of the throat where he was treated with linezolid in the past. - Related Data Home Medications Medication Instructions Recorded Confirmed Omeprazole [PriLOSEC] 20 mg PO BID 06/09/14 03/31/24 Ibuprofen [Motrin Ib] 600 mg PO Q6H PRN 03/31/24 03/31/24 Risankizumab-Rzaa [Skyrizi On-Body] 360 mg SQ Q56D 03/31/24 03/31/24 oxyCODONE HCL [OxyIR] 5 mg PO TID PRN 03/31/24 03/31/24 Previous Rx's Medication Instructions Recorded Linezolid [Zyvox] 600 mg PO Q12H 10 Days #20 tab 04/03/24 Clindamycin [Cleocin] 450 mg PO Q6H #40 cap 08/06/24 Allergies Allergy/AdvReac Type Severity Reaction Status Date / Time Sulfa (Sulfonamide Allergy MENINGITIS Verified 08/06/24 09:47 Antibiotics) Review of Systems ROS Statement: Those systems with pertinent positive or pertinent negative responses have been documented in the HPI. ROS Other: All systems not noted in ROS Statement are negative. Past Medical History Past Medical History: Skin Disorder Additional Past Medical History / Comment(s): OSTEOMYELITIS, CROHNS SINCE AGE 9, PICC LINE INFECTIONS AND SEPSIS, psoriasis, atopic dermatitis, cellulitis, elevated liver enzymes. History of Any Multi-Drug Resistant Organisms: MRSA Date of last positivie culture/infection: 03/26/24 MDRO Source:: sputum Past Surgical History: Bowel Resection, Orthopedic Surgery Additional Past Surgical History / Comment(s): ORIF distal radius with pinning- since removed, R wrist surgical site infection with I&D/picc line, 2 other I&Ds of R wrist, pt states that he has no large intestine (CROHNS), COLOSTOMY, scrotal surgery d/t torsion, colonoscopies. Past Anesthesia/Blood Transfusion Reactions: No Reported Reaction Additional Past Anesthesia/Blood Transfusion Reaction / Comment(s): HAS RECIEVED PLATELETS IN PAST. Past Psychological History: No Psychological Hx Reported Smoking Status: Current some day smoker Past Alcohol Use History: None Reported Past Drug Use History: None Reported - Past Family History Father Family Medical History: Cancer Additional Family Medical History / Comment(s): skin cancer. worked as produce inspector and was shot in head but survived Mother Family Medical History: No Reported History Additional Family Medical History / Comment(s): skin cancer General Exam Limitations: no limitations General appearance: alert, in no apparent distress Eye exam: Present: normal appearance, PERRL, EOMI. Absent: scleral icterus, conjunctival injection, periorbital swelling Expanded Mouth exam: Present: other (left sided facial swelling, left intra-oral abscess formation) Teeth exam: Present: dental caries Neck exam: Present: normal inspection. Absent: tenderness, meningismus, lymphadenopathy Respiratory exam: Present: normal lung sounds bilaterally. Absent: respiratory distress, wheezes, rales, rhonchi, stridor Cardiovascular Exam: Present: regular rate, normal rhythm, normal heart sounds. Absent: systolic murmur, diastolic murmur, rubs, gallop, clicks GI/Abdominal exam: Present: soft, normal bowel sounds. Absent: distended, tenderness, guarding, rebound, rigid Extremities exam: Present: normal inspection, full ROM, normal capillary refill. Absent: tenderness, pedal edema, joint swelling, calf tenderness Back exam: Present: normal inspection Skin exam: Present: warm, dry, intact, normal color. Absent: rash Course Vital Signs 08/06/24 09:45 Temperature 98.4 F Pulse Rate 95 Respiratory 18 Rate Blood Pressure 135/91 O2 Sat by Pulse 98 Oximetry Medical Decision Making - Medical Decision Making Was pt. sent in by a medical professional or institution (, PA, BUS GIRL, urgent care, hospital, or intermediate...) When possible be specific @ -No Did you speak to anyone other than the patient for history (EMS, parent, family, police, friend...)? What history was obtained from this source @ -No Did you review nursing and triage notes (agree or disagree)? Why? @ -I reviewed and agree with nursing and triage notes Were old charts reviewed (outside hosp., previous admission, EMS record, old EKG, old radiological studies, urgent care reports/EKG's, intermediate records)? Report findings @ -No old charts were reviewed Differential Diagnosis (chest pain, altered mental status, abdominal pain women, abdominal pain men, vaginal bleeding, weakness, fever, dyspnea, syncope, headache, dizziness, GI bleed, back pain, seizure, CVA, palpatations, mental health, musculoskeletal)? @ -Intraoral abscess, dental abscess, dental caries, pulpitis, gingivitis, this list is not all inclusive EKG interpreted by me (3pts min.). @ -None X-rays interpreted by me (1pt min.). @ -None done CT interpreted by me (1pt min.). @ -None done U/S interpreted by me (1pt. min.). @ -None done What testing was considered but not performed or refused? (CT, X-rays, U/S, labs)? Why? @ -None What meds were considered but not given or refused? Why? @ -None Did you discuss the management of the patient with other professionals (professionals i.e. , PA, BUS GIRL, lab, RT, psych nurse, manager social services, spiral gear generator, teacher, interface control officer, case picker)? Give summary @ -No Was smoking cessation discussed for >3mins.? @ -No Was critical care preformed (if so, how long)? @ -No Were there social determinants of health that impacted care today? How? (Homelessness, low income, unemployed, alcoholism, drug addiction, transportation, low edu. Level, literacy, decrease access to med. care, assisted, rehab)? @ -No Was there de-escalation of care discussed even if they declined (Discuss DNR or withdrawal of care, Hospice)? DNR status @ -No What co-morbidities impacted this encounter? (DM, HTN, Smoking, COPD, CAD, Cancer, CVA, ARF, Chemo, Hep., AIDS, mental health diagnosis, sleep apnea, morbid obesity)? @ -None Was patient admitted / discharged? Hospital course, mention meds given and route, prescriptions, significant lab abnormalities, going to OR and other pertinent info. @ -Discharge. 38 female presents emergency department with left-sided facial swelling and pain. Initial vitals are stable and evaluation patient noted to have left-sided facial swelling with intraoral examination revealing a forming abscess with dental tenderness. Patient arrived with outpatient prescription for clindamycin instructed follow-up with dentist. Return parameters discussed. He was offered pain medication however declined. Case discussed with Dr. Rojo Undiagnosed new problem with uncertain prognosis? @ -No Drug Therapy requiring intensive monitoring for toxicity (Heparin, Nitro, Insulin, Cardizem)? @ -No Were any procedures done? @ -No Diagnosis/symptom? @ -Dental abscess Acute, or Chronic, or Acute on Chronic? @ -Acute Uncomplicated (without systemic symptoms) or Complicated (systemic symptoms)? @ -Uncomplicated Side effects of treatment? @ -No Exacerbation, Progression, or Severe Exacerbation? @ -No Poses a threat to life or bodily function? How? (Chest pain, [place], [place], pneumonia, PE, COPD, DKA, ARF, appy, cholecystitis, CVA, Diverticulitis, Homicidal, Suicidal, threat to staff... and all critical care pts) @ -No Disposition Clinical Impression: Abscess of intraoral region Disposition: HOME SELF-CARE Condition: Good Instructions (If sedation given, give patient instructions): Dental Abscess (ED) Additional Instructions: Please return to the Emergency Department if symptoms worsen or any other concerns. Prescriptions: Clindamycin [Cleocin] 450 mg PO Q6H #40 cap Is patient prescribed a controlled substance at d/c from ED?: No Referrals: Lizzie Heck MD [Primary Care Provider] - 1-2 days Time of Disposition: 10:19
[2024-08-06 11:03] VITALS: BP 131/89; PULSE 90; TEMP 98.2
== END 2024-08-06 11:01 | disposition home or self-care (01) ==
LOC: EC 09:43
DX: K11.3 Abscess of salivary gland (principal); F17.200 Nicotine dependence, unspecified, uncomplicated; Z88.2 Allergy status to sulfonamides
CPT/HCPCS: 99282